=== PATIENT | male | born 1955 | race Caucasian/White ===

== ENCOUNTER 2016-11-10 10:04 | Emergency (ER) | payer OTHER ==
[2016-11-10] MEDS ORDERED: Zyprexa Zydis 5 MG PO ONE ×3 (10:06→10:10)
--- NOTE | 2016-11-10 10:11 | ERPHSYRPT ---
- History of Present Illness Time Seen by Provider: 11/10/16 10:05 Source: patient, family, EMS, old records Exam Limitations: no limitations Physician History: patient has a history of anxiety disorder; his medications were changed about a week ago; he has had increased anxiety since then; he has been taking his medication; he is sleeping okay; no suicidal or homicidal thoughts; occasionally hearing voices indeterminate in nature; he is eating okay; he denies any alcohol or drugs; except for the anxiety he has no complaints Timing/Duration: today (worse anxiety), week(s) (onset with medication change) Severity of Symptoms-Max: severe Severity of Symptoms-Current: moderate Context related to: living circumstances Suicidal thoughts: other (no thoughts or plans) Associated Symptoms: agitated, anxiety, confused Previous symptoms: same symptoms as today Allergies/Adverse Reactions: No Known Drug Allergies Allergy (Verified 11/10/16 10:14) Home Medications: Clonazepam [Klonopin] 1 mg PO TID 11/10/16 [History] Metoprolol Succinate 50 mg [Toprol Xl 50 MG] 100 mg PO DAILY 11/10/16 [ History] Quetiapine Fumarate 100 mg [Seroquel 100 MG] 100 mg PO HS 11/10/16 [ History] Risperidone 1 mg [Risperdal 1 MG] 2 mg PO BID 11/10/16 [History] Hx Tetanus, Diphtheria Vaccination/Date Given: Yes Hx Influenza Vaccination/Date Given: No Hx Pneumococcal Vaccination/Date Given: No - Past Medical History Pertinent Past Medical History: Yes Neurological History: Other ENT History: No Pertinent History Cardiac History: Hypertension Respiratory History: No Pertinent History Endocrine Medical History: No Pertinent History Musculoskeletal History: No Pertinent History GI Medical History: No Pertinent History, GERD History: No Pertinent History Psycho-Social History: Anxiety Male Reproductive Disorders: No Pertinent History Other Medical History: CP, BLIND IN RIGHT EYE - Past Surgical History Past Surgical History: Yes Other Surgical History: SKIN CA REMOVED - Social History Smoking Status: Never smoker Exposure to second hand smoke: No Alcohol Use: None Drug Use: none Patient Lives Alone: No Significant Family History: no pertinent family hx - Review of Systems Constitutional: Other (agitation and anxiety increased) Eyes: No Symptoms Ears, Nose, & Throat: No Symptoms Respiratory: No Cough, No Dyspnea, No Wheezing Cardiac: No Chest Pain, No Palpitations, No Syncope Abdominal/Gastrointestinal: No Abdominal Pain, No Nausea, No Vomiting, No Diarrhea Genitourinary Symptoms: No Symptoms Musculoskeletal: No Symptoms Skin: Other (frequent skin cancers), No Cellulitis, No Rash Neurological: No Dizziness, No Headache, No Seizure, No Vertigo Psychological: Anxiety, No Alcohol Abuse, No Drug Abuse, No Suicidal Ideations, No Homicidal Ideations Endocrine: No Symptoms Hematologic/Lymphatic: No Symptoms Immunological/Allergic: No Symptoms - Nursing Vital Signs Nursing Vital Signs: Initial Vital Signs Temperature 97.6 F Temperature Source Oral Pulse Rate 95 Respiratory Rate 20 Blood Pressure [Right Arm] 139/82 Pain Intensity 0 - Physical Exam General Appearance: mild distress (very anxious with mild hyperventilat), alert , anxiety Eyes, Ears, Nose, Throat Exam: normal ENT inspection, TMs normal, pharynx normal , moist mucous membranes Neck Exam: normal inspection, non-tender, supple, full range of motion, No meningismus, No JVD Respiratory Exam: normal breath sounds, lungs clear, airway intact, No chest tenderness, No respiratory distress Cardiovascular Exam: regular rate/rhythm, normal heart sounds, normal peripheral pulses, capillary refill <2 sec, No murmur Gastrointestinal/Abdominal Exam: soft, normal bowel sounds, No tenderness, No guarding, No rebound, No organomegaly Extremities Exam: normal inspection, normal range of motion, No edema Peripheral Pulses: carotid (R): 4+, carotid (L): 4+, femoral (R): 4+, femoral (L ): 4+, dorsalis-pedis (R): 3+, dorsalis-pedis (L): 3+ Current Suicidality: denies suicide plan Neurological Exam: alert, winder hand II-XII nml as tested, oriented x 3, anxious Appearance: appropriate appearance, denies illness, disheveled (mild) Behavior/Eye Contact/Speech: alert & cooperative, good eye contact, normal speech, increased rate of speech, agitated Thoughts/Hallucinations: no apparent hallucination, No incoherent, No obsessive , No paranoid, No persecution, No phobic, No congregation, No tactile hallucinations, No visual hallucinations Skin Exam: normal color, warm, dry, No rash SpO2 Interpretation: normal SpO2: 100 Oxygen Delivery: Room Air - Course Nursing assessment & vital signs reviewed: Yes Ordered Tests: Active Orders 24 hr Category Date Time Status Re-Check Vital Signs STAT Care 11/10/16 10:05 Active Medication Summary Discontinued Medications Generic Name Dose Route Start Last Admin Trade Name Marco A PRN Reason Stop Dose Admin Hydroxyzine HCl 50 mg 11/10/16 10:30 11/10/16 10:33 Vistaril 50 Mg/Ml IM 11/10/16 10:31 50 mg STAT ONE Administration Hydroxyzine HCl Confirm 11/10/16 10:32 Vistaril 50 Mg/Ml Administered 11/10/16 10:33 Dose 50 mg IM .STK-MED ONE Olanzapine 10 mg 11/10/16 10:06 11/10/16 10:12 Zyprexa Zydis 5 Mg PO 11/10/16 10:07 10 mg STAT ONE Administration Olanzapine Confirm 11/10/16 10:10 Zyprexa Zydis 5 Mg Administered 11/10/16 10:11 Dose 5 mg PO .STK-MED ONE Olanzapine Confirm 11/10/16 10:10 Zyprexa Zydis 5 Mg Administered 11/10/16 10:11 Dose 5 mg PO .STK-MED ONE - Progress Progress: improved (after meds), re-examined (after meds) Progress Note: 11/10/16 10:15 will get old meds list and comapre to new; will medicate and recheck 11/10/16 10:29 rechecked; VS ok; Anxiety improved but stil anxious; no hyperventilation 11/10/16 11:04 recheck and patient continues to improve; up to bathroom; states he has a follow up appointment; 11/10/16 11:29 patient continues to improve; treatment plan discussed and d/c instructions given Counseled pt/family regarding: diagnosis, need for follow-up, smoking cessation - Departure Time of Disposition: 11:30 Departure Disposition: Home Clinical Impression: Anxiety Condition: Stable Critical Care Time: No Referrals: FIONA GARBER [Primary Care Provider] - Instructions: Anxiety -- Adult Additional Instructions: call LMD for recheck and follow up appt continue home medications Follow-up with family doctor as directed. Call for appointment. Return if any problems. If you smoke please stop. Call or follow up with your family doctor for assistance if you need it to stop. Please wear your seatbelt when driving. Have a nice day. Thank you for allowing us to participate in your care today. :o) Dr Andre Swenson
[2016-11-10 10:16] VITALS: O2SAT 100
[2016-11-10] MEDS ORDERED: Vistaril 50 MG/ML IM ONE ×2 (10:30→10:32)
[2016-11-10 11:32] VITALS: BP 140/77; PULSE 86
== END 2016-11-10 12:19 | disposition home or self-care (01) ==
LOC: ED 10:04
DX: F41.9 Anxiety disorder, unspecified (principal); I10 Essential (primary) hypertension
CPT/HCPCS: 96372; 99284; J3410

== ENCOUNTER 2017-11-29 16:06 | Emergency (ER) | payer OTHER ==
[2017-11-29] MEDS ORDERED: Sodium Chloride 0.9% 1000 ML 1,000 ML IV STA (16:07)
--- NOTE | 2017-11-29 16:15 | ERPHSYRPT ---
- History of Present Illness Time Seen by Provider: 11/29/17 16:07 Source: patient Exam Limitations: no limitations Physician History: 62 y/o male with history of anxiety and HTN brought in by ambulance for weakness. EMS brings the patient in covered with bed bugs. The patient mentions that he has been in bed since yesterday and has not been able to ambulate. Pt has not taken his klonopin for 4 days. Pt denies any fever, chills, chest pain, shortness of breath, dizziness, palpitations, abdominal pain, nausea, vomiting, diarrhea or urinary symptoms. When EMS arrived, the house smelled of urine. Timing/Duration: yesterday Severity: mild Character of Deficits: new weakness, general (difuse) Deficits: cannot walk Baseline/Normal Cognition: alert oriented x 3 Current Cognition: alert oriented x 3 Baseline Gait: walks w/o assistance Associated Symptoms: fatigue, No loss of consciousness, No slurred speech Allergies/Adverse Reactions: No Known Drug Allergies Allergy (Verified 11/29/17 16:08) Home Medications: Clonazepam [Klonopin] 1 mg PO TID 11/10/16 [History] Metoprolol Succinate 50 mg [Toprol Xl 50 MG] 100 mg PO DAILY 11/10/16 [ History] Quetiapine Fumarate 100 mg [Seroquel 100 MG] 100 mg PO HS 11/10/16 [ History] Risperidone 1 mg [Risperdal 1 MG] 2 mg PO BID 11/10/16 [History] Hx Tetanus, Diphtheria Vaccination/Date Given: Yes Hx Influenza Vaccination/Date Given: No Hx Pneumococcal Vaccination/Date Given: No - Review of Systems Constitutional: Weakness, No Fever, No Chills Eyes: No Symptoms Ears, Nose, & Throat: No Symptoms Respiratory: No Cough, No Dyspnea Cardiac: No Chest Pain, No Edema, No Syncope Abdominal/Gastrointestinal: No Abdominal Pain, No Nausea, No Vomiting, No Diarrhea Genitourinary Symptoms: Incontinence, No Dysuria, No Frequency, No Hematuria Musculoskeletal: No Back Pain, No Neck Pain Skin: No Rash Neurological: No Dizziness, No Focal Weakness, No Sensory Changes Psychological: No Symptoms Endocrine: No Symptoms All Other Systems: Reviewed and Negative - Past Medical History Pertinent Past Medical History: Yes Neurological History: Other ENT History: No Pertinent History Cardiac History: Hypertension Respiratory History: No Pertinent History Endocrine Medical History: No Pertinent History Musculoskeletal History: No Pertinent History GI Medical History: No Pertinent History, GERD History: No Pertinent History Psycho-Social History: Anxiety Male Reproductive Disorders: No Pertinent History Other Medical History: CP, BLIND IN RIGHT EYE - Past Surgical History Past Surgical History: Yes Other Surgical History: SKIN CA REMOVED - Social History Smoking Status: Never smoker How long have you smoked: 35 Exposure to second hand smoke: No Alcohol Use: None Drug Use: none Patient Lives Alone: No Significant Family History: no pertinent family hx - Nursing Vital Signs Nursing Vital Signs: Initial Vital Signs Temperature 98.4 F 11/29/17 16:07 Pulse Rate 83 11/29/17 16:07 Respiratory Rate 16 11/29/17 16:07 Blood Pressure 142/83 11/29/17 16:07 O2 Sat by Pulse Oximetry 98 11/29/17 16:07 Pain Scale Pain Intensity 0 - [place] Coma Scale Best Eye Response ([place]): (4) open spontaneously Best Verbal Response ([place]): (5) oriented Best Motor Response ([place]): (6) obeys commands [place] Total: 15 - Physical Exam General Appearance: alert Eye Exam: bilateral eye: PERRL, EOMI Ears, Nose, Throat Exam: normal ENT inspection, moist mucous membranes Neck Exam: normal inspection, non-tender, supple Respiratory: normal breath sounds, lungs clear, airway intact, No respiratory distress Cardiovascular: regular rate/rhythm, normal heart sounds, No edema Gastrointestinal: soft, normal bowel sounds, No tenderness, No distention Back Exam: normal inspection Extremity Exam: normal inspection, normal range of motion, No pedal edema 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, 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: normal hearing, normal speech, PERRL, tongue midline Coordination/Gait: normal finger to nose, normal gait Motor/Sensory: no motor deficit, no sensory deficit, no pronator drift Skin Exam: normal color, warm, dry, No rash - Course Nursing assessment & vital signs reviewed: Yes Ordered Tests: Active Orders 24 hr Category Date Time Status Cath for Specimen-Straight STAT Care 11/29/17 16:09 Inactive Clean Catch Urine Specimen STAT Care 11/29/17 17:20 Active EKG-ER Only STAT Care 11/29/17 16:07 Active IV Insertion STAT Care 11/29/17 16:07 Active CHEST 1 VIEW (PORTABLE) Stat Exams 11/29/17 16:08 Ordered HEAD WITHOUT CONTRAST [CT] Stat Exams 11/29/17 16:08 Ordered CBC W DIFF Stat Lab 11/29/17 16:55 Completed CMP Stat Lab 11/29/17 16:55 Completed ETHYL ALCOHOL Stat Lab 11/29/17 16:55 Completed Lactic Acid Stat Lab 11/29/17 16:07 Completed MAGNESIUM Stat Lab 11/29/17 16:55 Completed TROPONIN Q3H Lab 11/29/17 16:55 Completed TROPONIN Q3H Lab 11/29/17 19:15 Ordered TROPONIN Q3H Lab 11/29/17 22:15 Ordered TROPONIN Q3H Lab 11/30/17 01:15 Ordered TROPONIN Q3H Lab 11/30/17 04:15 Ordered UA W/RFX UR CULTURE Stat Lab 11/29/17 18:00 Completed Urine Triage Profile Stat Lab 11/29/17 18:00 Completed Medication Summary Discontinued Medications Generic Name Dose Route Start Last Admin Trade Name Freq PRN Reason Stop Dose Admin Clonazepam 1 mg 11/29/17 18:51 Klonopin 0.5 Mg PO 11/29/17 18:52 ONCE ONE Sodium Chloride 1,000 mls @ 999 mls/hr 11/29/17 16:07 11/29/17 17:04 Sodium Chloride 0.9% 1000 Ml IV 11/29/17 17:07 999 mls/hr .Q1H1M STA Administration Sodium Chloride Confirm 11/29/17 16:31 Sodium Chloride 0.9% 1000 Ml Administered 11/29/17 16:32 Dose 1,000 mls @ ud .ROUTE .STK-MED ONE Lab/Rad Data: Laboratory Result Diagrams 11/29/17 16:55 11/29/17 16:55 Laboratory Results 11/29/17 11/29/17 11/29/17 Range/Units 18:00 18:00 16:55 WBC (4.0-10.5) K/mm3 RBC (4.1-5.6) M/mm3 Hgb (12.5-18.0) gm/dl Hct (42-50) % MCV (78-100) fl MCH (26-32) pg MCHC (32-36) g/dl RDW (11.5-14.0) % Plt Count (150-450) K/mm3 MPV (6-9.5) fl Gran % (36.0-66.0) % Eos # (Auto) (0-0.5) Absolute Lymphs (auto) (1.0-4.6) Absolute Monos (auto) (0.0-1.3) Lymphocytes % (24.0-44.0) % Monocytes % (0.0-12.0) % Eosinophils % (0.00-5.0) % Basophils % (0.0-0.4) % Absolute Granulocytes (1.4-6.9) Basophils # (0-0.4) Sodium (137-145) mmol/L Potassium (3.5-5.1) mmol/L Chloride (98-107) mmol/L Carbon Dioxide (22-30) mmol/L Anion Gap (5-15) MEQ/L BUN (9-20) mg/dL Creatinine (0.66-1.25) mg/dL Estimated GFR ML/MIN Glucose (74-106) mg/dL Lactic Acid (0.4-2.0) Calcium (8.4-10.2) mg/dL Magnesium (1.6-2.3) mg/dL Total Bilirubin (0.2-1.3) mg/dL AST (17-59) U/L ALT (0-50) U/L Alkaline Phosphatase (38-126) U/L Troponin I < 0.012 (0.000-0.034) ng/mL Serum Total Protein (6.3-8.2) g/dL Albumin (3.5-5.0) g/dL Ur Collection Type CCMS Urine Color YELLOW (YELLOW) Urine Appearance CLEAR (CLEAR) Urine pH 7.0 (5-6) Ur Specific [place]ke[place] 1.010 (1.005-1.025) Urine Protein NEGATIVE (Negative) Urine Ketones NEGATIVE (NEGATIVE) Urine Blood NEGATIVE (0-5) Pravin/ul Urine Nitrite NEGATIVE (NEGATIVE) Urine Bilirubin NEGATIVE (NEGATIVE) Urine Urobilinogen NORMAL (0-1) mg/dL Ur Leukocyte Esterase NEGATIVE (NEGATIVE) Urine Culture Reflexed NO (NO) Urine Glucose 50 (NEGATIVE) mg/dL Urine Opiates Level NEGATIVE (NEGATIVE) Ur Methadone NEGATIVE (NEGATIVE) Urine Barbiturates NEGATIVE (NEGATIVE) Ur Phencyclidine (PCP) NEGATIVE (NEGATIVE) Urine Amphetamine NEGATIVE (NEGATIVE) U Benzodiazepine Level NEGATIVE (NEGATIVE) Urine Cocaine NEGATIVE (NEGATIVE) Urine Marijuana (THC) NEGATIVE (NEGATIVE) Ethyl Alcohol (0-9) mg/dL Specimen Received 11-29-17 1830 11/29/17 11/29/17 11/29/17 Range/Units 16:55 16:55 16:07 WBC 11.9 H (4.0-10.5) K/mm3 RBC 4.24 (4.1-5.6) M/mm3 Hgb 13.5 (12.5-18.0) gm/dl Hct 39.6 L (42-50) % MCV 93.4 (78-100) fl MCH 31.8 (26-32) pg MCHC 34.1 (32-36) g/dl RDW 12.0 (11.5-14.0) % Plt Count 226 (150-450) K/mm3 MPV 9.2 (6-9.5) fl Gran % 80.8 H (36.0-66.0) % Eos # (Auto) 0.31 (0-0.5) Absolute Lymphs (auto) 1.11 (1.0-4.6) Absolute Monos (auto) 0.85 (0.0-1.3) Lymphocytes % 9.3 L (24.0-44.0) % Monocytes % 7.1 (0.0-12.0) % Eosinophils % 2.6 (0.00-5.0) % Basophils % 0.2 (0.0-0.4) % Absolute Granulocytes 9.60 H (1.4-6.9) Basophils # 0.02 (0-0.4) Sodium 134 L (137-145) mmol/L Potassium 4.6 (3.5-5.1) mmol/L Chloride 101 (98-107) mmol/L Carbon Dioxide 21 L (22-30) mmol/L Anion Gap 16.0 H (5-15) MEQ/L BUN 16 (9-20) mg/dL Creatinine 0.99 (0.66-1.25) mg/dL Estimated GFR > 60 ML/MIN Glucose 126 H (74-106) mg/dL Lactic Acid 1.1 (0.4-2.0) Calcium 8.8 (8.4-10.2) mg/dL Magnesium 1.9 (1.6-2.3) mg/dL Total Bilirubin 0.30 (0.2-1.3) mg/dL AST 13 L (17-59) U/L ALT 13 (0-50) U/L Alkaline Phosphatase 61 (38-126) U/L Troponin I (0.000-0.034) ng/mL Serum Total Protein 6.9 (6.3-8.2) g/dL Albumin 4.2 (3.5-5.0) g/dL Ur Collection Type Urine Color (YELLOW) Urine Appearance (CLEAR) Urine pH (5-6) Ur Specific [place]ke[place] (1.005-1.025) Urine Protein (Negative) Urine Ketones (NEGATIVE) Urine Blood (0-5) Pravin/ul Urine Nitrite (NEGATIVE) Urine Bilirubin (NEGATIVE) Urine Urobilinogen (0-1) mg/dL Ur Leukocyte Esterase (NEGATIVE) Urine Culture Reflexed (NO) Urine Glucose (NEGATIVE) mg/dL Urine Opiates Level (NEGATIVE) Ur Methadone (NEGATIVE) Urine Barbiturates (NEGATIVE) Ur Phencyclidine (PCP) (NEGATIVE) Urine Amphetamine (NEGATIVE) U Benzodiazepine Level (NEGATIVE) Urine Cocaine (NEGATIVE) Urine Marijuana (THC) (NEGATIVE) Ethyl Alcohol < 10 H (0-9) mg/dL Specimen Received - Progress Progress: improved Progress Note: 11/29/17 18:52 Pt feels better after receiving NS fluids. The labs, CT scan head and CXR are all unremarkable. The patient is able to ambulate with no difficulty. Pt admits to having increase anxiety and will be giving a short course of klonopin. Pt will F/U with his PCP. - Departure Time of Disposition: 18:53 Departure Disposition: Home Clinical Impression: Anxiety Condition: Stable Critical Care Time: No Referrals: FIONA GARBER [Primary Care Provider] - Instructions: Anxiety, Adult (DC) Additional Instructions: Follow up with your primary care doctor for any additional klonopin. Return to the ER if you should have worsening weakness, chest pain, shortness of breath, dizziness, palpitations, fever or chills. Prescriptions: Clonazepam 0.5 mg [Klonopin 0.5 MG] 1 mg PO TID PRN #10 tab PRN Reason: Anxiety
[2017-11-29] MEDS ORDERED: Sodium Chloride 0.9% 1000 ML 1,000 ML ONE (16:31)
[2017-11-29 18:06] LABS: BASOPHIL % 0.2 % (0.0-0.4); Basophil (Absolute #) 0.02 (0-0.4); Eosinophil % 2.6 % (0.00-5.0); Eosinophil (Absolute #) 0.31 (0-0.5); Granulocytes % 80.8 % (36.0-66.0); Hematocrit 39.6 % (42-50); Hemoglobin 13.5 gm/dl (12.5-18.0); Lymphocyte (Absolute #) 1.11 (1.0-4.6); Lymphocytes % 9.3 % (24.0-44.0); Mean Cell Volume 93.4 fl (78-100); Mean Corpuscular Hemoglobin 31.8 pg (26-32); Mean Corpuscular Hgb Concent. 34.1 g/dl (32-36); Mean Platelet Volume 9.2 fl (6-9.5); Monocyte (Absolute #) 0.85 (0.0-1.3); Monocytes % 7.1 % (0.0-12.0); Platelet Count 226 K/mm3 (150-450); Red Blood Count 4.24 M/mm3 (4.1-5.6); White Blood Count 11.9 K/mm3 (4.0-10.5)
[2017-11-29 18:26] LABS: ALBUMIN 4.2 g/dL (3.5-5.0); ALKALINE PHOSPHATASE 61 U/L (38-126); BLOOD UREA NITROGEN 16 mg/dL (9-20); CHLORIDE 101 mmol/L (98-107); Calcium 8.8 mg/dL (8.4-10.2); Carbon Dioxide 21 mmol/L (22-30); Creatinine 1 0.99 mg/dL (0.66-1.25); Glucose 126 mg/dL (74-106); Potassium 4.6 mmol/L (3.5-5.1); SGOT/AST 13 U/L (17-59); SGPT/ALT 13 U/L (0-50); SODIUM 134 mmol/L (137-145); Total Protein 6.9 g/dL (6.3-8.2)
[2017-11-29 18:35] LABS: ETHYL ALCOHOL < 10 mg/dL (0-9)
[2017-11-29 18:47] LABS: Appearance CLEAR (CLEAR); Bilirubin NEGATIVE (NEGATIVE); Blood NEGATIVE Ery/ul (0-5); Glucose 50 mg/dL (NEGATIVE); Ketones NEGATIVE (NEGATIVE); Leukocyte Esterase NEGATIVE (NEGATIVE); Nitrite NEGATIVE (NEGATIVE); Protein,Urine Dip NEGATIVE (Negative); Urobilinogen NORMAL mg/dL (0-1)
[2017-11-29] MEDS ORDERED: Klonopin 0.5 MG PO ONE (18:51)
[2017-11-29 19:03] LABS: Amphetamine,Urine NEGATIVE (NEGATIVE); Barbiturate,Urine NEGATIVE (NEGATIVE); Benzodiazepine,Urine NEGATIVE (NEGATIVE); Cocaine,Urine NEGATIVE (NEGATIVE); Methadone,Urine NEGATIVE (NEGATIVE); Opiate,Urine NEGATIVE (NEGATIVE); PCP,Urine NEGATIVE (NEGATIVE); THC,Urine NEGATIVE (NEGATIVE)
[2017-11-29 19:20] VITALS: BP 164/99; PULSE 80; O2SAT 99
--- NOTE | 2017-11-30 09:07 | XRAY ---
Indication: Weakness. Comparison: October 24, 2008. Portable chest again hyperinflated and clear with incidental calcified granulomas. Heart is not enlarged. Bony thorax intact. Impression: Stable nonacute hyperinflated chest.
--- NOTE | 2017-12-01 08:26 | XRAY ---
Indication: Weakness. Multiple contiguous axial images obtained through the head without contrast. Comparison: October 24, 2008. Images through the base of the brain slightly degraded by motion artifact even with repeat CT. Stable large left cerebral porencephalic cyst. No acute intracranial hemorrhage, hydrocephalus, or mass effect. Bony calvarium intact. Visualized paranasal sinuses and mastoid air cells are clear. Impression: Motion artifact. Stable left cerebral porencephalic cyst. No new or acute intracranial abnormalities. CT DI 64.68
== END 2017-11-29 19:43 | disposition home or self-care (01) ==
LOC: ED 16:06
DX: F41.9 Anxiety disorder, unspecified (principal); R53.1 Weakness; Z79.899 Other long term (current) drug therapy; I10 Essential (primary) hypertension
CPT/HCPCS: 36415; 70450; 71045; 80053; 80307; 81002; 83605; 83735; 84484; 85025; 93005; 99283; G0480; A9270-GY

== ENCOUNTER → 2017-12-04 | Emergency (ER) | payer OTHER ==
[~2017-12-04] MED LIST: Sodium Chloride 0.9% 1000 ML 1,000 ML IV STA; Sodium Chloride 0.9% 1000 ML 1,000 ML ONE
[2017-12-04 21:38] VITALS: PULSE 96; O2SAT 96
[2017-12-04 21:39] LABS: BASOPHIL % 0.2 % (0.0-0.4); Basophil (Absolute #) 0.03 (0-0.4); Eosinophil % 5.2 % (0.00-5.0); Eosinophil (Absolute #) 0.67 (0-0.5); Granulocyte Absolute (ANC) 8.65 (1.4-6.9); Granulocytes % 67.3 % (36.0-66.0); Hematocrit 40.2 % (42-50); Lymphocyte (Absolute #) 1.98 (1.0-4.6); Lymphocytes % 15.4 % (24.0-44.0); Mean Cell Volume 93.1 fl (78-100); Mean Corpuscular Hemoglobin 32.4 pg (26-32); Mean Corpuscular Hgb Concent. 34.8 g/dl (32-36); Mean Platelet Volume 9.7 fl (6-9.5); Monocyte (Absolute #) 1.53 (0.0-1.3); Monocytes % 11.9 % (0.0-12.0); Platelet Count 318 K/mm3 (150-450); Red Blood Count 4.32 M/mm3 (4.1-5.6); Red Cell Distribution Width 12.2 % (11.5-14.0); White Blood Count 12.9 K/mm3 (4.0-10.5)
[2017-12-04 21:44] LABS: Lactic Acid 5.3 (0.4-2.0)
--- NOTE | 2017-12-04 21:59 | ERPHSYRPT ---
- History of Present Illness Time Seen by Provider: 12/04/17 21:54 Patient Subjective Stated Complaint: Out of Klonopin for 2-3 days and causing him to think wrong--homicidal Triage Nursing Assessment: Pt A&O x3, states that he has been out of his Klonopin for 2-3 days and he has thoughts of killing someone, no one in particular, came in with bed bugs and was given a shower in the decontamination room, upon arrival he was shaking and that has now stopped, lung sounds clear, bowel sounds present in all 4 quadrants, hx of stroke on the right side with weakness, doesn't appear to be in any distress Physician History: 62-year-old male with significant past medical history of anxiety and depression then out of his clonazepam and since then he started having homicidal thoughts. Patient was wondering outside so there family member calls 911 and patient was brought into the emergency room. Patient was heavily bedbug infested and he states that he then out of Klonopin for last 2 days and now he has some homicidal thoughts. Patient denies any hallucination or delusions and patient behavior is calm in the emergency room. Timing/Duration: today Severity: moderate Associated Symptoms: denies symptoms Allergies/Adverse Reactions: No Known Drug Allergies Allergy (Verified 12/04/17 21:45) Home Medications: Clonazepam [Klonopin] 1 mg PO TID 11/10/16 [History] Metoprolol Succinate 50 mg [Toprol Xl 50 MG] 100 mg PO DAILY 11/10/16 [ History] Quetiapine Fumarate 100 mg [Seroquel 100 MG] 100 mg PO HS 11/10/16 [ History] Risperidone 1 mg [Risperdal 1 MG] 2 mg PO BID 11/10/16 [History] Hx Tetanus, Diphtheria Vaccination/Date Given: Yes Hx Influenza Vaccination/Date Given: No Hx Pneumococcal Vaccination/Date Given: No - Review of Systems Constitutional: No Fever, No Chills Eyes: No Symptoms Ears, Nose, & Throat: No Symptoms Respiratory: No Cough, No Dyspnea Cardiac: No Chest Pain, No Edema, No Syncope Abdominal/Gastrointestinal: No Abdominal Pain, No Nausea, No Vomiting, No Diarrhea Genitourinary Symptoms: No Dysuria Musculoskeletal: No Back Pain, No Neck Pain Skin: No Rash Neurological: No Dizziness, No Focal Weakness, No Sensory Changes Psychological: Anxiety, Depression, Homicidal Ideations Endocrine: No Symptoms All Other Systems: Reviewed and Negative - Past Medical History Pertinent Past Medical History: Yes Neurological History: Other ENT History: No Pertinent History Cardiac History: Hypertension Respiratory History: No Pertinent History Endocrine Medical History: No Pertinent History Musculoskeletal History: No Pertinent History GI Medical History: No Pertinent History, GERD History: No Pertinent History Psycho-Social History: Anxiety Male Reproductive Disorders: No Pertinent History Other Medical History: CP, 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 - Past Surgical History Past Surgical History: Yes Other Surgical History: SKIN CA REMOVED - Social History Smoking Status: Former smoker How long have you smoked: 35 Exposure to second hand smoke: No Alcohol Use: None Drug Use: none Patient Lives Alone: No Significant Family History: no pertinent family hx - Nursing Vital Signs Nursing Vital Signs: Initial Vital Signs Temperature 98.3 F 12/04/17 21:26 Pulse Rate 96 H 12/04/17 21:26 Blood Pressure 125/83 12/04/17 21:26 O2 Sat by Pulse Oximetry 96 12/04/17 21:26 Pain Scale Pain Intensity 0 - Physical Exam General Appearance: no apparent distress, alert Eye Exam: PERRL/EOMI, eyes nml inspection Ears, Nose, Throat Exam: normal ENT inspection, TMs normal, pharynx normal, moist mucous membranes Neck Exam: normal inspection, non-tender, supple, full range of motion Respiratory Exam: normal breath sounds, lungs clear, No respiratory distress Cardiovascular Exam: regular rate/rhythm, normal heart sounds, normal peripheral pulses Gastrointestinal/Abdomen Exam: soft, normal bowel sounds, No tenderness, No mass Back Exam: normal inspection, normal range of motion, No CVA tenderness, No vertebral tenderness Extremity Exam: normal inspection, normal range of motion, pelvis stable 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, oriented x 3, cooperative, disoriented, intoxicated appearance, depressed mood/affect, No motor deficits Skin Exam: normal color, warm, dry, No rash Lymphatic Exam: No adenopathy SpO2 Interpretation: normal SpO2: 96 Oxygen Delivery: Room Air - Course Nursing assessment & vital signs reviewed: Yes Ordered Tests: Active Orders 24 hr Category Date Time Status CBC W DIFF Stat Lab 12/04/17 21:20 Completed CMP Stat Lab 12/04/17 21:20 Completed ETHYL ALCOHOL Stat Lab 12/04/17 21:20 Completed Lactic Acid Stat Lab 12/04/17 21:40 Completed Lactic Acid Stat Lab 12/04/17 23:44 Completed Urine Triage Profile Stat Lab 12/04/17 23:45 Completed Medication Summary Discontinued Medications Generic Name Dose Route Start Last Admin Trade Name Marco A PRN Reason Stop Dose Admin Sodium Chloride 1,000 mls @ 999 mls/hr 12/04/17 21:26 12/04/17 21:41 Sodium Chloride 0.9% 1000 Ml IV 12/04/17 22:26 999 mls/hr .Q1H1M STA Administration Sodium Chloride Confirm 12/04/17 21:40 Sodium Chloride 0.9% 1000 Ml Administered 12/04/17 21:41 Dose 1,000 mls @ ud .ROUTE .STK-MED ONE Sodium Chloride 1,000 mls @ 999 mls/hr 12/04/17 23:34 12/04/17 23:40 Sodium Chloride 0.9% 1000 Ml IV 12/05/17 00:34 999 mls/hr .Q1H1M STA Administration Sodium Chloride Confirm 12/04/17 23:41 Sodium Chloride 0.9% 1000 Ml Administered 12/04/17 23:42 Dose 1,000 mls @ ud .ROUTE .STK-MED ONE Lab/Rad Data: Laboratory Result Diagrams 12/04/17 21:20 12/04/17 21:20 Laboratory Results 12/05/17 12/04/17 12/04/17 Range/Units 00:42 23:45 21:40 WBC (4.0-10.5) K/mm3 RBC (4.1-5.6) M/mm3 Hgb (12.5-18.0) gm/dl Hct (42-50) % MCV (78-100) fl MCH (26-32) pg MCHC (32-36) g/dl RDW (11.5-14.0) % Plt Count (150-450) K/mm3 MPV (6-9.5) fl Gran % (36.0-66.0) % Eos # (Auto) (0-0.5) Absolute Lymphs (auto) (1.0-4.6) Absolute Monos (auto) (0.0-1.3) Lymphocytes % (24.0-44.0) % Monocytes % (0.0-12.0) % Eosinophils % (0.00-5.0) % Basophils % (0.0-0.4) % Absolute Granulocytes (1.4-6.9) Basophils # (0-0.4) Sodium (137-145) mmol/L Potassium (3.5-5.1) mmol/L Chloride (98-107) mmol/L Carbon Dioxide (22-30) mmol/L Anion Gap (5-15) MEQ/L BUN (9-20) mg/dL Creatinine (0.66-1.25) mg/dL Estimated GFR ML/MIN Glucose (74-106) mg/dL Lactic Acid 0.6 5.3 H (0.4-2.0) Calcium (8.4-10.2) mg/dL Total Bilirubin (0.2-1.3) mg/dL AST (17-59) U/L ALT (0-50) U/L Alkaline Phosphatase (38-126) U/L Serum Total Protein (6.3-8.2) g/dL Albumin (3.5-5.0) g/dL Urine Opiates Level NEGATIVE (NEGATIVE) Ur Methadone NEGATIVE (NEGATIVE) Urine Barbiturates NEGATIVE (NEGATIVE) Ur Phencyclidine (PCP) NEGATIVE (NEGATIVE) Urine Amphetamine NEGATIVE (NEGATIVE) U Benzodiazepine Level NEGATIVE (NEGATIVE) Urine Cocaine NEGATIVE (NEGATIVE) Urine Marijuana (THC) NEGATIVE (NEGATIVE) Ethyl Alcohol (0-9) mg/dL Slides for Path Review 12/04/17 12/04/17 Range/Units 21:20 21:20 WBC 12.9 H (4.0-10.5) K/mm3 RBC 4.32 (4.1-5.6) M/mm3 Hgb 14.0 (12.5-18.0) gm/dl Hct 40.2 L (42-50) % MCV 93.1 (78-100) fl MCH 32.4 H (26-32) pg MCHC 34.8 (32-36) g/dl RDW 12.2 (11.5-14.0) % Plt Count 318 (150-450) K/mm3 MPV 9.7 H (6-9.5) fl Gran % 67.3 H (36.0-66.0) % Eos # (Auto) 0.67 H (0-0.5) Absolute Lymphs (auto) 1.98 (1.0-4.6) Absolute Monos (auto) 1.53 H (0.0-1.3) Lymphocytes % 15.4 L (24.0-44.0) % Monocytes % 11.9 (0.0-12.0) % Eosinophils % 5.2 H (0.00-5.0) % Basophils % 0.2 (0.0-0.4) % Absolute Granulocytes 8.65 H (1.4-6.9) Basophils # 0.03 (0-0.4) Sodium 131 L (137-145) mmol/L Potassium 4.5 (3.5-5.1) mmol/L Chloride 94 L (98-107) mmol/L Carbon Dioxide 19 L (22-30) mmol/L Anion Gap 22.9 H (5-15) MEQ/L BUN 18 (9-20) mg/dL Creatinine 1.25 (0.66-1.25) mg/dL Estimated GFR > 60 ML/MIN Glucose 121 H (74-106) mg/dL Lactic Acid (0.4-2.0) Calcium 9.5 (8.4-10.2) mg/dL Total Bilirubin 0.50 (0.2-1.3) mg/dL AST 25 (17-59) U/L ALT 19 (0-50) U/L Alkaline Phosphatase 60 (38-126) U/L Serum Total Protein 7.4 (6.3-8.2) g/dL Albumin 4.7 (3.5-5.0) g/dL Urine Opiates Level (NEGATIVE) Ur Methadone (NEGATIVE) Urine Barbiturates (NEGATIVE) Ur Phencyclidine (PCP) (NEGATIVE) Urine Amphetamine (NEGATIVE) U Benzodiazepine Level (NEGATIVE) Urine Cocaine (NEGATIVE) Urine Marijuana (THC) (NEGATIVE) Ethyl Alcohol < 10 H (0-9) mg/dL Slides for Path Review YES - Progress Progress: unchanged Discussed with : Other Counseled pt/family regarding: lab results, diagnosis, need for follow-up - Departure Time of Disposition: 05:12 Departure Disposition: Transfer Clinical Impression: Homicidal behavior Condition: Stable Critical Care Time: Yes Critical Care Time(excluding separately billable procedures): 30-74 minutes Referrals: FIONA GARBER [Primary Care Provider] -
[2017-12-04 22:04] LABS: ALBUMIN 4.7 g/dL (3.5-5.0); ALKALINE PHOSPHATASE 60 U/L (38-126); ANION GAP 22.9 MEQ/L (5-15); BLOOD UREA NITROGEN 18 mg/dL (9-20); CHLORIDE 94 mmol/L (98-107); Calcium 9.5 mg/dL (8.4-10.2); Carbon Dioxide 19 mmol/L (22-30); Creatinine 1 1.25 mg/dL (0.66-1.25); Glucose 121 mg/dL (74-106); Potassium 4.5 mmol/L (3.5-5.1); SGOT/AST 25 U/L (17-59); SODIUM 131 mmol/L (137-145); Total Protein 7.4 g/dL (6.3-8.2)
[2017-12-04 22:10] LABS: SGPT/ALT 19 U/L (0-50)
[2017-12-04 22:16] LABS: ETHYL ALCOHOL < 10 mg/dL (0-9)
[2017-12-05 00:10] LABS: Amphetamine,Urine NEGATIVE (NEGATIVE); Barbiturate,Urine NEGATIVE (NEGATIVE); Benzodiazepine,Urine NEGATIVE (NEGATIVE); Cocaine,Urine NEGATIVE (NEGATIVE); Methadone,Urine NEGATIVE (NEGATIVE); Opiate,Urine NEGATIVE (NEGATIVE); PCP,Urine NEGATIVE (NEGATIVE); THC,Urine NEGATIVE (NEGATIVE)
[2017-12-05 00:33] LABS: Slide Review 1 YES
[2017-12-05 02:27] VITALS: BP 127/96
== END ==
LOC: ED 21:06
DX: R45.850 Homicidal ideations (principal); T14.8XXA Other injury of unspecified body region, initial encounter; W57.XXXA Bitten or stung by nonvenomous insect and other nonvenomous arthropods, initial encounter
CPT/HCPCS: 36415; 80053; 80302; 80307; 83605; 85025; 96360; 96361; 99285; G0480

== ENCOUNTER 2018-04-17 11:25 | Emergency (ER) | payer OTHER ==
[2018-04-17 12:04] LABS: BASOPHIL % 0.2 % (0.0-0.4); Basophil (Absolute #) 0.02 (0-0.4); Eosinophil % 10.2 % (0.00-5.0); Eosinophil (Absolute #) 0.93 (0-0.5); Granulocyte Absolute (ANC) 5.91 (1.4-6.9); Granulocytes % 64.9 % (36.0-66.0); Hematocrit 37.6 % (42-50); Hemoglobin 13.6 gm/dl (12.5-18.0); Lymphocyte (Absolute #) 1.33 (1.0-4.6); Lymphocytes % 14.6 % (24.0-44.0); Mean Cell Volume 91.7 fl (78-100); Mean Corpuscular Hemoglobin 33.2 pg (26-32); Mean Corpuscular Hgb Concent. 36.2 g/dl (32-36); Mean Platelet Volume 9.7 fl (6-9.5); Monocyte (Absolute #) 0.92 (0.0-1.3); Monocytes % 10.1 % (0.0-12.0); Platelet Count 192 K/mm3 (150-450); White Blood Count 9.1 K/mm3 (4.0-10.5)
--- NOTE | 2018-04-17 12:05 | ERPHSYRPT ---
- History of Present Illness Time Seen by Provider: 04/17/18 12:02 Source: patient Exam Limitations: no limitations Physician History: This is a 63-year-old white male with complaint of depression he states he has been feeling depressed for 2 days he feels like his medicines are not working. He denies suicidal or homicidal ideation . He denies alcohol tobacco or illicit drug use. 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 Also states he has chronic right-sided weakness. Past surgical history includes skin cancer removed. Patient is a former smoker Timing/Duration: day(s) (2 days) Severity: moderate Modifying Factors: Improves With: nothing Associated Symptoms: denies symptoms Allergies/Adverse Reactions: No Known Drug Allergies Allergy (Verified 04/17/18 11:36) Home Medications: Clonazepam [Klonopin] 1 mg PO TID 11/10/16 [History] Metoprolol Succinate 50 mg [Toprol Xl 50 MG] 100 mg PO DAILY 11/10/16 [ History] Quetiapine Fumarate 100 mg [Seroquel 100 MG] 100 mg PO HS 11/10/16 [ History] Risperidone 1 mg [Risperdal 1 MG] 2 mg PO HS 11/10/16 [History] ARIPiprazole [Aripiprazole] 5 mg PO DAILY 04/17/18 [History] Amlodipine Besylate 10 mg [Norvasc 10 MG] 10 mg PO HS 04/17/18 [History] Buspirone HCl [Buspar] 10 mg PO BID 04/17/18 [History] Lisinopril/Hydrochlorothiazide [Lisinopril-Hctz 20-12.5 mg Tab] 1 each PO DAILY 04/17/18 [History] Hx Tetanus, Diphtheria Vaccination/Date Given: Yes Hx Influenza Vaccination/Date Given: No Hx Pneumococcal Vaccination/Date Given: No - Review of Systems Constitutional: No Fever, No Chills Eyes: No Symptoms Ears, Nose, & Throat: No Symptoms Respiratory: No Cough, No Dyspnea Cardiac: No Chest Pain, No Edema, No Syncope Abdominal/Gastrointestinal: No Abdominal Pain, No Nausea, No Vomiting, No Diarrhea Genitourinary Symptoms: No Dysuria Musculoskeletal: No Back Pain, No Neck Pain Skin: No Rash Neurological: No Dizziness, No Focal Weakness, No Sensory Changes Psychological: Depression, No Suicidal Ideations, No Homicidal Ideations Endocrine: No Symptoms All Other Systems: Reviewed and Negative - Past Medical History Pertinent Past Medical History: Yes Neurological History: Other ENT History: No Pertinent History Cardiac History: Hypertension Respiratory History: No Pertinent History Endocrine Medical History: No Pertinent History Musculoskeletal History: No Pertinent History GI Medical History: No Pertinent History, GERD History: No Pertinent History Psycho-Social History: Anxiety Male Reproductive Disorders: No Pertinent History Other Medical History: CP, 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 - Past Surgical History Past Surgical History: Yes Other Surgical History: SKIN CA REMOVED - Social History Smoking Status: Former smoker How long have you smoked: 35 Exposure to second hand smoke: No Alcohol Use: None Drug Use: none Patient Lives Alone: No Significant Family History: no pertinent family hx - Nursing Vital Signs Nursing Vital Signs: Initial Vital Signs Temperature 98 F 04/17/18 11:26 Pulse Rate 61 04/17/18 11:26 Respiratory Rate 16 04/17/18 11:26 Blood Pressure 132/82 04/17/18 11:26 O2 Sat by Pulse Oximetry 99 04/17/18 11:26 Pain Scale Pain Intensity 0 - Physical Exam General Appearance: no apparent distress, alert Eye Exam: PERRL/EOMI, eyes nml inspection Ears, Nose, Throat Exam: normal ENT inspection, TMs normal, pharynx normal, moist mucous membranes Neck Exam: normal inspection, non-tender, supple, full range of motion Respiratory Exam: normal breath sounds, lungs clear, No respiratory distress Cardiovascular Exam: regular rate/rhythm, normal heart sounds, normal peripheral pulses Gastrointestinal/Abdomen Exam: soft, normal bowel sounds, No tenderness, No mass Back Exam: normal inspection, normal range of motion, No CVA tenderness, No vertebral tenderness Extremity Exam: normal inspection, normal range of motion, pelvis stable 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, oriented x 3, cooperative, elementary education tutor II-XII nml as tested, normal mood/affect, nml cerebellar function, nml station & gait, sensation nml, No motor deficits Skin Exam: normal color, warm, dry, No rash Lymphatic Exam: No adenopathy SpO2 Interpretation: normal (99%) SpO2: 99 Oxygen Delivery: Room Air - Course Nursing assessment & vital signs reviewed: Yes EKG Interpreted by Me: RATE (55 bpm), Sinus Rhythm, NORMAL AXIS, Other (EKG: Sinus bradycardia, 55 bpm, normal axis, no acute ST or T wave changes noted) Ordered Tests: Active Orders 24 hr Category Date Time Status EKG-ER Only STAT Care 04/17/18 11:56 Active IV Insertion STAT Care 04/17/18 11:56 Active Psychiatric Evaluation STAT Care 04/17/18 12:30 Active ACETAMINOPHEN Stat Lab 04/17/18 11:45 Completed CBC W DIFF Stat Lab 04/17/18 11:45 Completed CMP Stat Lab 04/17/18 11:45 Completed ETHYL ALCOHOL Stat Lab 04/17/18 11:45 Completed SALICYLATE Stat Lab 04/17/18 11:45 Completed UA W/RFX UR CULTURE Stat Lab 04/17/18 11:45 Completed Urine Triage Profile Stat Lab 04/17/18 11:45 Completed Lab/Rad Data: Laboratory Result Diagrams 04/17/18 11:45 04/17/18 11:45 Laboratory Results 04/17/18 04/17/18 04/17/18 Range/Units 11:45 11:45 11:45 WBC (4.0-10.5) K/mm3 RBC (4.1-5.6) M/mm3 Hgb (12.5-18.0) gm/dl Hct (42-50) % MCV (78-100) fl MCH (26-32) pg MCHC (32-36) g/dl RDW (11.5-14.0) % Plt Count (150-450) K/mm3 MPV (6-9.5) fl Gran % (36.0-66.0) % Eos # (Auto) (0-0.5) Absolute Lymphs (auto) (1.0-4.6) Absolute Monos (auto) (0.0-1.3) Lymphocytes % (24.0-44.0) % Monocytes % (0.0-12.0) % Eosinophils % (0.00-5.0) % Basophils % (0.0-0.4) % Absolute Granulocytes (1.4-6.9) Basophils # (0-0.4) Sodium 129 L (137-145) mmol/L Potassium 4.0 (3.5-5.1) mmol/L Chloride 98 (98-107) mmol/L Carbon Dioxide 22 (22-30) mmol/L Anion Gap 13.8 (5-15) MEQ/L BUN 15 (9-20) mg/dL Creatinine 1.05 (0.66-1.25) mg/dL Estimated GFR > 60.0 ML/MIN Glucose 110 H (74-106) mg/dL Calcium 9.0 (8.4-10.2) mg/dL Total Bilirubin 0.30 (0.2-1.3) mg/dL AST 21 (17-59) U/L ALT 15 (0-50) U/L Alkaline Phosphatase 56 (38-126) U/L Serum Total Protein 7.0 (6.3-8.2) g/dL Albumin 4.4 (3.5-5.0) g/dL Ur Collection Type VOID Urine Color YELLOW (YELLOW) Urine Appearance CLEAR (CLEAR) Urine pH 7.0 (5-6) Ur Specific Thermal 1.005 (1.005-1.025) Urine Protein NEGATIVE (Negative) Urine Ketones NEGATIVE (NEGATIVE) Urine Blood NEGATIVE (0-5) Pravin/ul Urine Nitrite NEGATIVE (NEGATIVE) Urine Bilirubin NEGATIVE (NEGATIVE) Urine Urobilinogen NORMAL (0-1) mg/dL Ur Leukocyte Esterase NEGATIVE (NEGATIVE) Urine Culture Reflexed NO (NO) Urine Glucose NEGATIVE (NEGATIVE) mg/dL Salicylates < 1.0 L (2-20) mg/dL Urine Opiates Level NEGATIVE (NEGATIVE) Ur Methadone NEGATIVE (NEGATIVE) Acetaminophen < 10 L (10-30) ug/ml Urine Barbiturates NEGATIVE (NEGATIVE) Ur Phencyclidine (PCP) NEGATIVE (NEGATIVE) Urine Amphetamine NEGATIVE (NEGATIVE) U Benzodiazepine Level NEGATIVE (NEGATIVE) Urine Cocaine NEGATIVE (NEGATIVE) Urine Marijuana (THC) NEGATIVE (NEGATIVE) Ethyl Alcohol < 10 (0-10) mg/dL Specimen Received 04/17/18 1145 04/17/18 Range/Units 11:45 WBC 9.1 (4.0-10.5) K/mm3 RBC 4.10 (4.1-5.6) M/mm3 Hgb 13.6 (12.5-18.0) gm/dl Hct 37.6 L (42-50) % MCV 91.7 (78-100) fl MCH 33.2 H (26-32) pg MCHC 36.2 H (32-36) g/dl RDW 12.0 (11.5-14.0) % Plt Count 192 (150-450) K/mm3 MPV 9.7 H (6-9.5) fl Gran % 64.9 (36.0-66.0) % Eos # (Auto) 0.93 H (0-0.5) Absolute Lymphs (auto) 1.33 (1.0-4.6) Absolute Monos (auto) 0.92 (0.0-1.3) Lymphocytes % 14.6 L (24.0-44.0) % Monocytes % 10.1 (0.0-12.0) % Eosinophils % 10.2 H (0.00-5.0) % Basophils % 0.2 (0.0-0.4) % Absolute Granulocytes 5.91 (1.4-6.9) Basophils # 0.02 (0-0.4) Sodium (137-145) mmol/L Potassium (3.5-5.1) mmol/L Chloride (98-107) mmol/L Carbon Dioxide (22-30) mmol/L Anion Gap (5-15) MEQ/L BUN (9-20) mg/dL Creatinine (0.66-1.25) mg/dL Estimated GFR ML/MIN Glucose (74-106) mg/dL Calcium (8.4-10.2) mg/dL Total Bilirubin (0.2-1.3) mg/dL AST (17-59) U/L ALT (0-50) U/L Alkaline Phosphatase (38-126) U/L Serum Total Protein (6.3-8.2) g/dL Albumin (3.5-5.0) g/dL Ur Collection Type Urine Color (YELLOW) Urine Appearance (CLEAR) Urine pH (5-6) Ur Specific Thermal (1.005-1.025) Urine Protein (Negative) Urine Ketones (NEGATIVE) Urine Blood (0-5) Pravin/ul Urine Nitrite (NEGATIVE) Urine Bilirubin (NEGATIVE) Urine Urobilinogen (0-1) mg/dL Ur Leukocyte Esterase (NEGATIVE) Urine Culture Reflexed (NO) Urine Glucose (NEGATIVE) mg/dL Salicylates (2-20) mg/dL Urine Opiates Level (NEGATIVE) Ur Methadone (NEGATIVE) Acetaminophen (10-30) ug/ml Urine Barbiturates (NEGATIVE) Ur Phencyclidine (PCP) (NEGATIVE) Urine Amphetamine (NEGATIVE) U Benzodiazepine Level (NEGATIVE) Urine Cocaine (NEGATIVE) Urine Marijuana (THC) (NEGATIVE) Ethyl Alcohol (0-10) mg/dL Specimen Received - Progress Progress: improved Progress Note: 04/17/18 16:10 The patient was evaluated in the er by [facility] he signed a contract stating that he will not harm himself, and continue to state that he does not want to harm himself, patient is to follow up with [facility] as an outpatient with Brittnee Houston on April 19 at 8:45 AM. - Departure Time of Disposition: 16:12 Departure Disposition: Home Clinical Impression: Depression Qualifiers: Depression Type: unspecified Qualified Code(s): F32.9 - Major depressive disorder, single episode, unspecified Condition: Fair Critical Care Time: No Referrals: FIONA GARBER [ACTIVE STAFF] - Additional Instructions: Return home, continue your current medications. follow up with [facility] (Brittnee Houston) April 19 at 8:45 am. Return for acute distress or for severe symptoms.
[2018-04-17 12:22] LABS: ALBUMIN 4.4 g/dL (3.5-5.0); ALKALINE PHOSPHATASE 56 U/L (38-126); ANION GAP 13.8 MEQ/L (5-15); BLOOD UREA NITROGEN 15 mg/dL (9-20); CHLORIDE 98 mmol/L (98-107); Carbon Dioxide 22 mmol/L (22-30); Creatinine 1 1.05 mg/dL (0.66-1.25); Glucose 110 mg/dL (74-106); SGOT/AST 21 U/L (17-59); SGPT/ALT 15 U/L (0-50); SODIUM 129 mmol/L (137-145)
[2018-04-17 12:23] LABS: ACETAMINOPHEN < 10 ug/ml (10-30); ETHYL ALCOHOL < 10 mg/dL (0-10); SALICYLATE < 1.0 mg/dL (2-20)
[2018-04-17 12:25] LABS: Appearance CLEAR (CLEAR); Bilirubin NEGATIVE (NEGATIVE); Blood NEGATIVE Ery/ul (0-5); Glucose NEGATIVE (NEGATIVE); Ketones NEGATIVE (NEGATIVE); Leukocyte Esterase NEGATIVE (NEGATIVE); Nitrite NEGATIVE (NEGATIVE); Protein,Urine Dip NEGATIVE (Negative); Specific Gravity 1.005 (1.005-1.025); Urobilinogen NORMAL mg/dL (0-1)
[2018-04-17 12:38] LABS: Amphetamine,Urine NEGATIVE (NEGATIVE); Barbiturate,Urine NEGATIVE (NEGATIVE); Benzodiazepine,Urine NEGATIVE (NEGATIVE); Cocaine,Urine NEGATIVE (NEGATIVE); Methadone,Urine NEGATIVE (NEGATIVE); Opiate,Urine NEGATIVE (NEGATIVE); PCP,Urine NEGATIVE (NEGATIVE); THC,Urine NEGATIVE (NEGATIVE)
[2018-04-17 15:43] VITALS: PULSE 64
[2018-04-17 16:18] VITALS: BP 121/74; O2SAT 98
== END 2018-04-17 17:00 | disposition home or self-care (01) ==
LOC: ED 11:25
DX: F32.9 Major depressive disorder, single episode, unspecified (principal); Z79.899 Other long term (current) drug therapy
CPT/HCPCS: 36000; 36415; 80053; 80307; 81002; 85025; 90791; 93005; 99284; G0481; Q3014; G0480

== ENCOUNTER 2020-01-13 18:42 | Observation (INO) | payer OTHER ==
--- NOTE | 2020-01-13 19:00 | ERPHSYRPT ---
- History of Present Illness Time Seen by Provider: 01/13/20 19:00 Source: patient, EMS Exam Limitations: no limitations Physician History: The patient is a 64-year-old male who presents with a chief complaint of an episode of vomiting according to EMS. EMS reports that they picked the patient up at his residence he has a complaint of vomiting however on my exam he stated he needed his "medication refilled" and was specifically asking for clonazepam. He states he has been taken clonazepam for "anxiety" but has been bit out of this medication for "a while". He denies vomiting and states that he just spit up this evening. Of note, the patient is a poor historian and reportedly was covered in bedbugs requiring him to be decontaminated before being moved into the emergency department when he arrived by EMS. The patient was unable to tell me the year but he knows that the day of the week. He reportedly lives with his "nephew" but myself and the nursing staff are unable to get a hold of any family members at this time to provide any other details pertaining to the HPI. The patient does deny current alcohol use and works that he used to be a "drinker" but quit a number of years ago. He denies any chest pain, shortness of breath, cough, diarrhea, abdominal pain and vomiting. Associated Symptoms: nausea, No vomiting, No abdominal pain, No shortness of breath, No diaphoresis, No seizure Allergies/Adverse Reactions: No Known Drug Allergies Allergy (Verified 01/13/20 18:47) Home Medications: Clonazepam [Klonopin] 1 mg PO TID 11/10/16 [History] Metoprolol Succinate 50 mg [Toprol Xl 50 MG] 100 mg PO DAILY 11/10/16 [ History] Quetiapine Fumarate 100 mg [Seroquel 100 MG] 150 mg PO HS 11/10/16 [ History] Risperidone 1 mg [Risperdal 1 MG] 1 mg PO HS 11/10/16 [History] Amlodipine Besylate 10 mg [Norvasc 10 MG] 10 mg PO HS 04/17/18 [History] Lisinopril/Hydrochlorothiazide [Lisinopril-Hctz 20-12.5 mg Tab] 1 each PO DAILY 08/12/18 [History] Hx Tetanus, Diphtheria Vaccination/Date Given: Yes Hx Influenza Vaccination/Date Given: No Hx Pneumococcal Vaccination/Date Given: No - Review of Systems Constitutional: No Fever, No Chills Cardiac: No Chest Pain Abdominal/Gastrointestinal: No Abdominal Pain Neurological: Tremors Psychological: Anxiety All Other Systems: Unable due to condition (Mental status) - Past Medical History Pertinent Past Medical History: Yes Neurological History: Other ENT History: No Pertinent History Cardiac History: Hypertension Respiratory History: No Pertinent History Endocrine Medical History: No Pertinent History Musculoskeletal History: No Pertinent History GI Medical History: No Pertinent History, GERD History: No Pertinent History Psycho-Social History: Anxiety Male Reproductive Disorders: No Pertinent History Other Medical History: CP, 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 - Past Surgical History Past Surgical History: Yes Other Surgical History: SKIN CA REMOVED - Social History Smoking Status: Former smoker How long have you smoked: 35 Exposure to second hand smoke: No Alcohol Use: None Drug Use: none Patient Lives Alone: No Significant Family History: no pertinent family hx - Nursing Vital Signs Nursing Vital Signs: Initial Vital Signs Temperature 98.0 F 01/13/20 19:12 Pulse Rate 116 H 01/13/20 19:12 Respiratory Rate 18 01/13/20 19:12 Blood Pressure 168/78 01/13/20 19:12 O2 Sat by Pulse Oximetry 100 01/13/20 19:12 Pain Scale Pain Intensity 0 - Physical Exam General Appearance: other (The patient was awake but appeared disoriented and confused. He was obviously tremulous and tachycardic.) Eye Exam: PERRL/EOMI, other (The right conjunctive appear to be injected and the right upper eyelid appeared to be swollen but there was no obvious eye trauma bleeding or increased warmth or purulent drainage) Ears, Nose, Throat Exam: normal ENT inspection, other (There was no evidence of tongue trauma) Neck Exam: normal inspection, supple Respiratory Exam: normal breath sounds, lungs clear, No chest tenderness, No respiratory distress, No prolonged expirations, No crackles/rales, No rhonchi, No wheezing, No stridor Cardiovascular Exam: normal heart sounds, normal peripheral pulses, tachycardia , capillary refill <2 sec Gastrointestinal/Abdomen Exam: soft, distention, other (Possible ascites present ), No guarding, No organomegaly Male Genitalia Exam: normal genitalia Back Exam: normal inspection, No point tenderness Extremity Exam: pelvis stable, swelling, No contusions, No calf tenderness, No deformities, No joint swelling, No tenderness 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, other (The patient was alert but not oriented to the year and was oriented to person and knows that he is in a hospital. Tremors noted in upper extremities/hands) Skin Exam: dry, pale, other (There were numerous excoriation and small punctate lesions on his skin mainly to the upper arms trunk and lower extremities consistent with bedbug bites), No jaundice, No cyanosis, No diaphoresis SpO2 Interpretation: normal O2 Delivery: Room Air - Course Nursing assessment & vital signs reviewed: Yes EKG Interpreted by Me: Sinus Tach, NORMAL AXIS, prolonged QT interval, Non- specific ST Changes - Radiology Exams Chest X-ray Interpretation: Interpreted by me, Reviewed by me, Negative - CT Exams Head CT Interpretation: Other (No acute cortical infarct, intracranial hemorrhage or mass. 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 ) Ordered Tests: Active Orders 24 hr Category Date Time Status Up With Assistance TOLERATED Activity 01/13/20 22:11 Active Accucheck STAT Care 01/13/20 19:26 Completed Catheter-[place] Vieyra ROUTINE Care 01/13/20 22:11 Active Code Status Order ROUTINE Care 01/13/20 22:11 Active EKG-ER Only STAT Care 01/13/20 19:21 Completed Vieyra [Catheter-[place] Vieyra] STAT Care 01/13/20 20:26 Completed IV Insertion ROUTINE Care 01/13/20 22:11 Active IV Insertion STAT Care 01/13/20 19:21 Completed NPO (ED) STAT Care 01/13/20 19:[address] in Observation ROUTINE Care 01/13/20 22:11 Active Pulse Oximetry (ED) STAT Care 01/13/20 19:26 Completed Seizure Precautions -SCCHED STAT Care 01/13/20 19:26 Completed Vital Signs Q2H Care 01/13/20 22:11 Active Marble Setter Helper/Discharge Plan ROUTINE Cons 01/13/20 22:11 Active Clear Liquid Diet 01/13/20 Breakfast Active CHEST 2 VIEWS (PA AND LAT) Stat Exams 01/13/20 19:22 Taken HEAD WITHOUT CONTRAST [CT] Stat Exams 01/13/20 19:25 Taken BMP AM.LAB Lab 01/14/20 04:00 Ordered CBC W DIFF AM.LAB Lab 01/14/20 04:00 Ordered CBC W DIFF Stat Lab 01/13/20 19:35 Completed CMP Stat Lab 01/13/20 19:35 Completed CULTURE,URINE Stat Lab 01/13/20 20:25 Received LIPASE Stat Lab 01/13/20 19:35 Completed Lactic Acid Stat Lab 01/13/20 19:35 Completed MAGNESIUM Stat Lab 01/13/20 19:35 Completed Manual Differential NC Stat Lab 01/13/20 19:35 Completed PHOSPHOROUS Stat Lab 01/13/20 19:35 Completed TROPONIN Stat Lab 01/13/20 19:35 Completed UA W/RFX UR CULTURE Stat Lab 01/13/20 20:25 Completed Pulse Oximetry ROUTINE RT 01/13/20 22:11 Active Transfer Order Routine Transfer 01/13/20 Completed Medication Summary Generic Name Dose Route Start Last Admin Trade Name Freq PRN Reason Stop Dose Admin Acetaminophen 975 mg 01/13/20 22:11 Tylenol 325 Mg PO 02/12/20 22:10 Q4H PRN PRN PAIN, FEVER, HEADACHE Amlodipine Besylate 10 mg 01/13/20 22:11 Norvasc 5 Mg PO 02/12/20 22:10 HS CL[place] Chlordiazepoxide HCl 25 mg 01/13/20 22:11 Librium 25 Mg PO 02/12/20 22:10 TID [place] Lisinopril 20 mg/ 0 mg 01/14/20 09:00 Hydrochlorothiazide 12.5 mg PO 02/13/20 08:59 DAILY CL[place] Metoprolol Succinate 100 mg 01/14/20 09:00 Toprol Xl 100 Mg PO 02/13/20 08:59 DAILY CL[place] Discontinued Medications Generic Name Dose Route Start Last Admin Trade Name Freq PRN Reason Stop Dose Admin Chlordiazepoxide HCl 50 mg 01/13/20 19:27 01/13/20 19:40 Librium 25 Mg PO 01/13/20 19:28 50 mg STAT ONE Administration Sodium Chloride 1,000 mls @ 999 mls/hr 01/13/20 21:02 01/13/20 22:15 Sodium Chloride 0.9% 1000 Ml IV 01/13/20 22:02 Infused .Q1H1M STA Infusion Sodium Chloride Confirm 01/13/20 21:03 Sodium Chloride 0.9% 1000 Ml Administered 01/13/20 21:04 Dose 1,000 mls @ ud .ROUTE .STK-MED ONE Lidocaine HCl 200 mg 01/13/20 20:14 01/13/20 20:14 Xylocaine 2% Uro-Jet TOP 01/13/20 20:15 200 mg STAT ONE Administration Lidocaine HCl Confirm 01/13/20 20:11 Xylocaine 2% Uro-Jet Administered 01/13/20 20:12 Dose 200 mg .ROUTE .ST-MED ONE Lab/Rad Data: Laboratory Result Diagrams 01/13/20 19:35 01/13/20 19:35 Laboratory Results 01/13/20 01/13/20 01/13/20 Range/Units 20:25 19:35 19:35 WBC (4.0-10.5) K/mm3 RBC (4.1-5.6) M/mm3 Hgb (12.5-18.0) gm/dl Hct (42-50) % MCV (78-100) fl MCH (26-32) pg MCHC (32-36) g/dl RDW (11.5-14.0) % Plt Count (150-450) K/mm3 MPV (7.5-11.0) fl Absolute Granulocytes (1.4-6.9) Segmented Neutrophils (36.-66.) % Lymphocytes (Manual) (24-44) % Monocytes (Manual) (0.0-12.0) % Eosinophils (Manual) (0.00-3.0) % Basophils (Manual) (0.0-1.0) % Platelet Estimate (NORMAL) RBC Morphology Sodium (137-145) mmol/L Potassium (3.5-5.1) mmol/L Chloride (98-107) mmol/L Carbon Dioxide (22-30) mmol/L Anion Gap (5-15) MEQ/L BUN (9-20) mg/dL Creatinine (0.66-1.25) mg/dL Estimated GFR ML/MIN Glucose (74-106) mg/dL Lactic Acid (0.4-2.0) Calcium (8.4-10.2) mg/dL Phosphorus 2.6 (2.5-4.5) mg/dL Magnesium 2.1 (1.6-2.3) mg/dL Total Bilirubin (0.2-1.3) mg/dL AST (17-59) U/L ALT (0-50) U/L Alkaline Phosphatase (38-126) U/L Troponin I (0.000-0.034) ng/mL Serum Total Protein (6.3-8.2) g/dL Albumin (3.5-5.0) g/dL Lipase (23-300) U/L Urine Color STRAW (YELLOW) Urine Appearance CLEAR (CLEAR) Urine pH 7.0 (5-6) Ur Specific [place] 1.002 (1.005-1.025) Urine Protein NEGATIVE (Negative) Urine Ketones NEGATIVE (NEGATIVE) Urine Blood MODERATE (0-5) Pravin/ul Urine Nitrite NEGATIVE (NEGATIVE) Urine Bilirubin NEGATIVE (NEGATIVE) Urine Urobilinogen NEGATIVE (0-1) mg/dL Ur Leukocyte Esterase NEGATIVE (NEGATIVE) Urine WBC (Auto) NONE (0-5) /HPF Urine RBC (Auto) 0-2 (0-2) /HPF U Epithel Cells (Auto) NONE (FEW) /HPF Urine Bacteria (Auto) NONE (NEGATIVE) /HPF Urine Culture Reflexed ORDERED SEPARATELY (NO) Urine Glucose NEGATIVE (NEGATIVE) mg/dL 01/13/20 01/13/20 01/13/20 Range/Units 19:35 19:35 19:35 WBC 7.5 (4.0-10.5) K/mm3 RBC 3.86 L (4.1-5.6) M/mm3 Hgb 11.2 L (12.5-18.0) gm/dl Hct 34.7 L (42-50) % MCV 89.9 (78-100) fl MCH 29.0 (26-32) pg MCHC 32.3 (32-36) g/dl RDW 15.1 H (11.5-14.0) % Plt Count 224 (150-450) K/mm3 MPV 9.3 (7.5-11.0) fl Absolute Granulocytes 5.57 (1.4-6.9) Segmented Neutrophils 70 H (36.-66.) % Lymphocytes (Manual) 15 L (24-44) % Monocytes (Manual) 10 (0.0-12.0) % Eosinophils (Manual) 4 H (0.00-3.0) % Basophils (Manual) 1 (0.0-1.0) % Platelet Estimate NORMAL (NORMAL) RBC Morphology NORMAL Sodium 138 (137-145) mmol/L Potassium 3.6 (3.5-5.1) mmol/L Chloride 104 (98-107) mmol/L Carbon Dioxide 23 (22-30) mmol/L Anion Gap 14.6 (5-15) MEQ/L BUN 10 (9-20) mg/dL Creatinine 0.96 (0.66-1.25) mg/dL Estimated GFR > 60.0 ML/MIN Glucose 147 H (74-106) mg/dL Lactic Acid 1.5 (0.4-2.0) Calcium 8.8 (8.4-10.2) mg/dL Phosphorus (2.5-4.5) mg/dL Magnesium (1.6-2.3) mg/dL Total Bilirubin 0.30 (0.2-1.3) mg/dL AST 23 (17-59) U/L ALT 23 (0-50) U/L Alkaline Phosphatase 69 (38-126) U/L Troponin I < 0.012 (0.000-0.034) ng/mL Serum Total Protein 7.5 (6.3-8.2) g/dL Albumin 4.1 (3.5-5.0) g/dL Lipase 81 (23-300) U/L Urine Color (YELLOW) Urine Appearance (CLEAR) Urine pH (5-6) Ur Specific [place] (1.005-1.025) Urine Protein (Negative) Urine Ketones (NEGATIVE) Urine Blood (0-5) Pravin/ul Urine Nitrite (NEGATIVE) Urine Bilirubin (NEGATIVE) Urine Urobilinogen (0-1) mg/dL Ur Leukocyte Esterase (NEGATIVE) Urine WBC (Auto) (0-5) /HPF Urine RBC (Auto) (0-2) /HPF U Epithel Cells (Auto) (FEW) /HPF Urine Bacteria (Auto) (NEGATIVE) /HPF Urine Culture Reflexed (NO) Urine Glucose (NEGATIVE) mg/dL - Progress Progress: improved Progress Note: 01/13/20 20:06 The patient presents with what appears confusion and altered mentation, tachycardia, and appears to be tremulous in the context of reportedly running out of clonazepam for my guess is a week. There are no family members available that can provide any details pertaining to the HPI my concern is that he is suffering from possible benzodiazepine withdrawal specifically his Klonopin, and may have actually suffered a seizure that was unwitnessed at home. This may also be his baseline mental status. At this point, the patient is in no shape to be discharged from the emergency department I suspect he will need admission for further evaluation and management in addition to social reasons and possible facility placement. Adult protective services will likely need to get involved. He may also be suffering a toxic metabolic encephalopathy , delirium from an infectious etiology, or intracranial hemorrhage or mass or possibly an old CVA. I will go ahead and order labs specifically CBC, CMP, magnesium, phosphorus, UA, troponin to eval for evidence of an infectious etiology, electrolyte disturbance, and STEMI, etc. I will also order a lactate to eval for evidence of elevation which may suggest that he had a recent seizure. EKG will be ordered to eval his QRS duration given that it appears she has multiple medications listed that can prolong his QT as well as to screen for evidence of myocardial ischemia or injury pattern. I will go ahead and order neurocranial imaging consisting of a non-contrasted head CT at this time in addition to a chest x-ray, the chest x-ray to eval for evidence of pneumonia or evidence of aspiration pneumonia. I will go ahead and administer 50 mg of p.o. to start treating his suspected benzodiazepine withdrawal. The nursing staff attempted to contact the patient's next of kin and would get somebody to answer the phone but they were quickly hang up. A subsequent follow -up phone call was met with going straight to [facility]. 01/13/20 20:59 The patient was reassessed to find that he was feeling better after receiving Librium. 01/13/20 21:03 Dr. Quiroga being paged now for admission 01/13/20 21:[address] Quiroga who agreed to admit after discussing the case with her. She agreed that adult protective services will likely need to be involved in this case but they can be contacted tomorrow. 01/13/20 22:17 Discussed with : Anyi Will see patient in: hospital (observation) Counseled pt/family regarding: lab results, diagnosis, rad results - Departure Departure Disposition: Observation Clinical Impression: Withdrawal from benzodiazepine, Normocytic anemia, Bedbug bite, Hypertension, Anxiety, Poor social situation Condition: Stable Critical Care Time: No
[2020-01-13] MEDS ORDERED: LIBRIUM 25 MG PO ONE (19:27)
[2020-01-13 19:42] LABS: Absolute Neutrophil Ct (ANC) 5.57 (1.4-6.9); Hematocrit 34.7 % (42-50); Hemoglobin 11.2 gm/dl (12.5-18.0); Mean Cell Volume 89.9 fl (78-100); Mean Corpuscular Hgb Concent. 32.3 g/dl (32-36); Mean Platelet Volume 9.3 fl (7.5-11.0); Platelet Count 224 K/mm3 (150-450); Red Blood Count 3.86 M/mm3 (4.1-5.6); Red Cell Distribution Width 15.1 % (11.5-14.0); White Blood Count 7.5 K/mm3 (4.0-10.5)
[2020-01-13 20:05] LABS: ALBUMIN 4.1 g/dL (3.5-5.0); ALKALINE PHOSPHATASE 69 U/L (38-126); ANION GAP 14.6 MEQ/L (5-15); BLOOD UREA NITROGEN 10 mg/dL (9-20); CHLORIDE 104 mmol/L (98-107); Calcium 8.8 mg/dL (8.4-10.2); Carbon Dioxide 23 mmol/L (22-30); Creatinine 1 0.96 mg/dL (0.66-1.25); Glucose 147 mg/dL (74-106); LIPASE 81 U/L (23-300); Potassium 3.6 mmol/L (3.5-5.1); SGOT/AST 23 U/L (17-59); SGPT/ALT 23 U/L (0-50); SODIUM 138 mmol/L (137-145); Total Protein 7.5 g/dL (6.3-8.2)
[2020-01-13 20:06] LABS: TROPONIN < 0.012 ng/mL (0.000-0.034)
[2020-01-13] MEDS ORDERED: XYLOCAINE 2% Uro-Jet ONE (20:11)
[2020-01-13] MEDS ORDERED: XYLOCAINE 2% Uro-Jet TOP ONE (20:14)
[2020-01-13 20:21] LABS: Basophil 1 % (0.0-1.0); Eosinophil 4 % (0.00-3.0); Lymphocytes 15 % (24-44); Monocyte 10 % (0.0-12.0); Neutrophils 70 % (36.-66.); Platelet Estimate NORMAL (NORMAL); Total Cells Counted 100
[2020-01-13 20:45] LABS: Appearance CLEAR (CLEAR); Bilirubin NEGATIVE (NEGATIVE); Blood MODERATE Ery/ul (0-5); Glucose NEGATIVE (NEGATIVE); Ketones NEGATIVE (NEGATIVE); Leukocyte Esterase NEGATIVE (NEGATIVE); Nitrite NEGATIVE (NEGATIVE); Protein,Urine Dip NEGATIVE (Negative); RBC 0-2 /HPF (0-2); Specific Gravity 1.002 (1.005-1.025); Urobilinogen NEGATIVE mg/dL (0-1)
[2020-01-13] MEDS ORDERED: Sodium Chloride 0.9% 1000 ML 1,000 ML IV STA (21:02)
[2020-01-13] MEDS ORDERED: Sodium Chloride 0.9% 1000 ML 1,000 ML ONE (21:03)
[2020-01-13] MEDS ORDERED: TYLENOL 325 MG PO PRN (22:11)
[2020-01-13] MEDS: Ativan 2 MG/1 ML VIAL IV PRN (22:44)
[2020-01-13] MEDS: NORVASC 5 MG PO SCH (22:45)
[2020-01-13] MEDS: LIBRIUM 25 MG PO SCH (22:52)
[2020-01-14] MEDS: Sodium Chloride 0.9% 10 ML FLUSH Syringe IV SCH ×3 (05:28→21:52)
[2020-01-14 06:19] LABS: Absolute Neutrophil Ct (ANC) 4.11 (1.4-6.9); BASOPHIL % 0.4 % (0.0-0.4); Basophil (Absolute #) 0.03 (0-0.4); Eosinophil % 15.8 % (0.00-5.0); Eosinophil (Absolute #) 1.18 (0-0.5); Hematocrit 33.5 % (42-50); Hemoglobin 10.6 gm/dl (12.5-18.0); Lymphocyte (Absolute #) 1.17 (1.0-4.6); Lymphocytes % 15.6 % (24.0-44.0); Mean Cell Volume 90.3 fl (78-100); Mean Corpuscular Hemoglobin 28.6 pg (26-32); Mean Corpuscular Hgb Concent. 31.6 g/dl (32-36); Mean Platelet Volume 9.6 fl (7.5-11.0); Monocyte (Absolute #) 0.99 (0.0-1.3); Monocytes % 13.2 % (0.0-12.0); Platelet Count 226 K/mm3 (150-450); Red Blood Count 3.71 M/mm3 (4.1-5.6); Red Cell Distribution Width 15.5 % (11.5-14.0); White Blood Count 7.5 K/mm3 (4.0-10.5)
[2020-01-14 06:32] LABS: ANION GAP 9.6 MEQ/L (5-15); BLOOD UREA NITROGEN 9 mg/dL (9-20); CHLORIDE 110 mmol/L (98-107); Calcium 8.3 mg/dL (8.4-10.2); Carbon Dioxide 24 mmol/L (22-30); Creatinine 1 0.94 mg/dL (0.66-1.25); Glucose 101 mg/dL (74-106); Potassium 3.7 mmol/L (3.5-5.1); SODIUM 141 mmol/L (137-145)
--- NOTE | 2020-01-14 08:25 | XRAY ---
Indication: Chest pain, tremors, and acute mental status change. Comparison: November 29, 2017. PA/lateral chest unchanged again hyperinflated and clear with incidental calcified granulomas. Heart is not enlarged. Bony thorax intact again with mild double curvature scoliosis. No new/acute findings.
--- NOTE | 2020-01-14 08:27 | XRAY ---
Indication: Acute mental status change and tremors. Hypertension. Multiple contiguous axial images obtained through the head without contrast. Comparison: November 29, 2017. 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 No acute intracranial hemorrhage, hydrocephalus, or mass effect. Fourth ventricle is midline. Bel[place]an-white matter differentiation preserved. Bony calvarium intact. Visualized paranasal sinuses and mastoid air cells are clear. Impression: Stable left cerebral porencephalic cyst. No new or acute intracranial abnormalities. Comment: Preliminary interpretation was made by [facility]. No critical discrepancy.
[2020-01-14] MEDS: Toprol Xl 100 MG PO SCH (09:12)
[2020-01-14] MEDS: LIBRIUM 25 MG PO SCH ×3 (09:12→21:51)
[2020-01-14] MEDS: Zestril 20 MG*** 20 MG, hydroDIURIL 25 MG*** 12.5 MG PO SCH ×2 (09:12)
[2020-01-14] MEDS ORDERED: [UNRECOGNIZED DRUG - OTHER] IH SCH (10:00)
[2020-01-14] MEDS ORDERED: NON-FORMULARY ITEM (Lisinopril/Hydrochlorothiazide [Lisinopril-Hctz 20-12.5 Mg Tab] 1 EACH PO SCH (10:00)
[2020-01-14] MEDS ORDERED: MEDICATION INTERVENTION MC SCH (10:00)
[2020-01-14] MEDS ORDERED: BUDESONIDE IH SCH (10:00)
[2020-01-14] MEDS ORDERED: FORMOTEROL FUMARATE IH SCH (10:00)
[2020-01-14] MEDS: Ativan 2 MG/1 ML VIAL IV PRN ×3 (10:26→18:29)
--- NOTE | 2020-01-14 15:25 | PCM.HP ---
History of Present Illness - Chief Complaint Chief Complaint: Withdraw from benzo, Normocytic anemia, HRN, Anxiety, Poor Social Situation Date: 01/14/20 History of Present Illness: is a 64 year old male seen and examined this am following ER admission for suspected benzo withdrawal. Patient is a limited historian and at times has difficult speech to understand. Patient reports that he did get his benzo medication filled in december. He reports that instead of taking his prescribed 3 tablets a day he started taking 5 day because he was having more anxiety. Patient denies any new acute stressors that would be causing his anxiety. Patient reports that he is aware that his home has bed bugs. He reports that they have been trying to get it taken care of. Patient reports that his nephew Sushant Torrez. He reports that he is able to care for himself and that home health comes in every two weeks to help him. Patient reports occasional headaches. He denies any other symptoms. He reports hx of HTN. He denies substance use. He chews tobacco. 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 Patient is also a limited historian) Medications & Allergies Home Medications: Home Medication List Clonazepam [Klonopin] 1 mg PO TID 11/10/16 [History Confirmed 01/13/20] Metoprolol Succinate 50 mg [Toprol Xl 50 MG] 100 mg PO DAILY 11/10/16 [ History Confirmed 01/13/20] Quetiapine Fumarate 100 mg [Seroquel 100 MG] 150 mg PO HS 11/10/16 [ History Confirmed 01/13/20] Risperidone 1 mg [Risperdal 1 MG] 1 mg PO HS 11/10/16 [History Confirmed 01/13/20] Amlodipine Besylate 10 mg [Norvasc 10 MG] 10 mg PO HS 04/17/18 [History Confirmed 01/13/20] Lisinopril/Hydrochlorothiazide [Lisinopril-Hctz 20-12.5 mg Tab] 1 each PO DAILY 04/17/18 [History Confirmed 01/13/20] Budesonide/Formoterol Fumarate [Budesonide-Formoterol 160-4.5] 2 puffs IH BID [History Confirmed 01/14/20] Allergies/Adverse Reactions: Allergies Allergy/AdvReac Type Severity Reaction Status Date / Time No Known Drug Allergies Allergy Verified 01/13/20 18:47 - Past Medical History Past Medical History: Yes Neurological History: Other ENT History: No Pertinent History Cardiac History: Hypertension Respiratory History: No Pertinent History Endocrine Medical History: No Pertinent History Musculoskelatal History: No Pertinent History GI Medical History: No Pertinent History, GERD History: No Pertinent History Pyscho-Social History: Anxiety Male Reproductive Disorders: No Pertinent History Comment: CP, 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 - Past Surgical History Past Surgical History: Yes Other Surgical History: SKIN CA REMOVED - Social History Smoking Status: Former smoker How long have you smoked: 35 Exposure to second hand smoke: No Alcohol: None Drug Use: none Significant Family History: no pertinent family hx - Physical Exam Vital Signs: Vital Signs - 24 hr Temp Pulse Resp BP Pulse Ox 01/14/20 12:00 97.9 F 63 14 134/76 94 L 01/14/20 10:00 98.7 F 88 14 130/72 97 01/14/20 08:00 98.2 F 88 15 149/80 96 01/14/20 06:00 98.9 F 75 14 150/88 94 L 01/14/20 04:23 98.7 F 85 16 144/73 97 01/14/20 01:58 98.7 F 95 H 20 144/75 98 01/14/20 00:00 99.0 F 105 H 23 146/79 97 01/13/20 23:06 99.1 F 101 H 16 167/81 98 01/13/20 21:02 98 H 18 135/84 99 01/13/20 20:17 97 H 144/81 100 01/13/20 19:38 106 H 155/82 100 01/13/20 19:37 99 01/13/20 19:12 98.0 F 116 H 18 168/78 100 General Appearance: mild distress, No anxiety 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, cooperative, motor deficits (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 Tongue deviates to the R side), No disoriented, No confusion, No agitation, No uncooperative Eye Exam: other (R sided eyelid droop. Conjunctiva is injected R side. There is a lesion on inner corner of Left eye.) Ears, Nose, Throat Exam: moist mucous membranes, other (Tongue deviation to the R) Neck Exam: normal inspection, No carotid bruit, No JVD Respiratory Exam: normal breath sounds, No diminished breath sounds, No crackles /rales, No rhonchi, No wheezing Cardiovascular Exam: normal heart sounds, tachycardia (Patient at times has been tachycardic), No murmur, No friction rub, No gallop Gastrointestinal/Abdomen Exam: soft, normal bowel sounds, No tenderness, No distention Male Genitalia Exam: normal genitalia, other (Vieyra cath in place) Extremity Exam: other (Tremors present in hands bilaterally), No pedal edema Skin Exam: normal color, warm, dry, other (There is a suspicious .5 cm lesion on middle left cheeck. Patient has large lesion on R nostril about 1.5 cm in size. Patient has diffuse bite /scabs with areas of excoriation.) Results - Labs Lab/Micro Results: Accuchecks Accucheck Value: 136 Lab Results-Last 24 Hours 01/13/20 01/13/20 01/13/20 Range/Units 19:35 19:35 19:35 WBC 7.5 (4.0-10.5) K/mm3 RBC 3.86 L (4.1-5.6) M/mm3 Hgb 11.2 L (12.5-18.0) gm/dl Hct 34.7 L (42-50) % MCV 89.9 (78-100) fl MCH 29.0 (26-32) pg MCHC 32.3 (32-36) g/dl RDW 15.1 H (11.5-14.0) % Plt Count 224 (150-450) K/mm3 MPV 9.3 (7.5-11.0) fl Gran % (36.0-66.0) % Eos # (Auto) (0-0.5) Absolute Lymphs (auto) (1.0-4.6) Absolute Monos (auto) (0.0-1.3) Lymphocytes % (24.0-44.0) % Monocytes % (0.0-12.0) % Eosinophils % (0.00-5.0) % Basophils % (0.0-0.4) % Absolute Granulocytes 5.57 (1.4-6.9) Segmented Neutrophils 70 H (36.-66.) % Lymphocytes (Manual) 15 L (24-44) % Monocytes (Manual) 10 (0.0-12.0) % Eosinophils (Manual) 4 H (0.00-3.0) % Basophils (Manual) 1 (0.0-1.0) % Basophils # (0-0.4) Platelet Estimate NORMAL (NORMAL) RBC Morphology NORMAL Sodium 138 (137-145) mmol/L Potassium 3.6 (3.5-5.1) mmol/L Chloride 104 (98-107) mmol/L Carbon Dioxide 23 (22-30) mmol/L Anion Gap 14.6 (5-15) MEQ/L BUN 10 (9-20) mg/dL Creatinine 0.96 (0.66-1.25) mg/dL Estimated GFR > 60.0 ML/MIN Glucose 147 H (74-106) mg/dL Lactic Acid 1.5 (0.4-2.0) Calcium 8.8 (8.4-10.2) mg/dL Phosphorus (2.5-4.5) mg/dL Magnesium (1.6-2.3) mg/dL Total Bilirubin 0.30 (0.2-1.3) mg/dL AST 23 (17-59) U/L ALT 23 (0-50) U/L Alkaline Phosphatase 69 (38-126) U/L Troponin I < 0.012 (0.000-0.034) ng/mL Serum Total Protein 7.5 (6.3-8.2) g/dL Albumin 4.1 (3.5-5.0) g/dL Lipase 81 (23-300) U/L Urine Color (YELLOW) Urine Appearance (CLEAR) Urine pH (5-6) Ur Specific [place] (1.005-1.025) Urine Protein (Negative) Urine Ketones (NEGATIVE) Urine Blood (0-5) Pravin/ul Urine Nitrite (NEGATIVE) Urine Bilirubin (NEGATIVE) Urine Urobilinogen (0-1) mg/dL Ur Leukocyte Esterase (NEGATIVE) Urine WBC (Auto) (0-5) /HPF Urine RBC (Auto) (0-2) /HPF U Epithel Cells (Auto) (FEW) /HPF Urine Bacteria (Auto) (NEGATIVE) /HPF Urine Culture Reflexed (NO) Urine Glucose (NEGATIVE) mg/dL 01/13/20 01/13/20 01/13/20 Range/Units 19:35 19:35 20:25 WBC (4.0-10.5) K/mm3 RBC (4.1-5.6) M/mm3 Hgb (12.5-18.0) gm/dl Hct (42-50) % MCV (78-100) fl MCH (26-32) pg MCHC (32-36) g/dl RDW (11.5-14.0) % Plt Count (150-450) K/mm3 MPV (7.5-11.0) fl Gran % (36.0-66.0) % Eos # (Auto) (0-0.5) Absolute Lymphs (auto) (1.0-4.6) Absolute Monos (auto) (0.0-1.3) Lymphocytes % (24.0-44.0) % Monocytes % (0.0-12.0) % Eosinophils % (0.00-5.0) % Basophils % (0.0-0.4) % Absolute Granulocytes (1.4-6.9) Segmented Neutrophils (36.-66.) % Lymphocytes (Manual) (24-44) % Monocytes (Manual) (0.0-12.0) % Eosinophils (Manual) (0.00-3.0) % Basophils (Manual) (0.0-1.0) % Basophils # (0-0.4) Platelet Estimate (NORMAL) RBC Morphology Sodium (137-145) mmol/L Potassium (3.5-5.1) mmol/L Chloride (98-107) mmol/L Carbon Dioxide (22-30) mmol/L Anion Gap (5-15) MEQ/L BUN (9-20) mg/dL Creatinine (0.66-1.25) mg/dL Estimated GFR ML/MIN Glucose (74-106) mg/dL Lactic Acid (0.4-2.0) Calcium (8.4-10.2) mg/dL Phosphorus 2.6 (2.5-4.5) mg/dL Magnesium 2.1 (1.6-2.3) mg/dL Total Bilirubin (0.2-1.3) mg/dL AST (17-59) U/L ALT (0-50) U/L Alkaline Phosphatase (38-126) U/L Troponin I (0.000-0.034) ng/mL Serum Total Protein (6.3-8.2) g/dL Albumin (3.5-5.0) g/dL Lipase (23-300) U/L Urine Color STRAW (YELLOW) Urine Appearance CLEAR (CLEAR) Urine pH 7.0 (5-6) Ur Specific [place] 1.002 (1.005-1.025) Urine Protein NEGATIVE (Negative) Urine Ketones NEGATIVE (NEGATIVE) Urine Blood MODERATE (0-5) Pravin/ul Urine Nitrite NEGATIVE (NEGATIVE) Urine Bilirubin NEGATIVE (NEGATIVE) Urine Urobilinogen NEGATIVE (0-1) mg/dL Ur Leukocyte Esterase NEGATIVE (NEGATIVE) Urine WBC (Auto) NONE (0-5) /HPF Urine RBC (Auto) 0-2 (0-2) /HPF U Epithel Cells (Auto) NONE (FEW) /HPF Urine Bacteria (Auto) NONE (NEGATIVE) /HPF Urine Culture Reflexed ORDERED SEPARATELY (NO) Urine Glucose NEGATIVE (NEGATIVE) mg/dL 01/14/20 01/14/20 Range/Units 05:30 05:30 WBC 7.5 (4.0-10.5) K/mm3 RBC 3.71 L (4.1-5.6) M/mm3 Hgb 10.6 L (12.5-18.0) gm/dl Hct 33.5 L (42-50) % MCV 90.3 (78-100) fl MCH 28.6 (26-32) pg MCHC 31.6 L (32-36) g/dl RDW 15.5 H (11.5-14.0) % Plt Count 226 (150-450) K/mm3 MPV 9.6 (7.5-11.0) fl Gran % 55.0 (36.0-66.0) % Eos # (Auto) 1.18 H (0-0.5) Absolute Lymphs (auto) 1.17 (1.0-4.6) Absolute Monos (auto) 0.99 (0.0-1.3) Lymphocytes % 15.6 L (24.0-44.0) % Monocytes % 13.2 H (0.0-12.0) % Eosinophils % 15.8 H (0.00-5.0) % Basophils % 0.4 (0.0-0.4) % Absolute Granulocytes 4.11 (1.4-6.9) Segmented Neutrophils (36.-66.) % Lymphocytes (Manual) (24-44) % Monocytes (Manual) (0.0-12.0) % Eosinophils (Manual) (0.00-3.0) % Basophils (Manual) (0.0-1.0) % Basophils # 0.03 (0-0.4) Platelet Estimate (NORMAL) RBC Morphology Sodium 141 (137-145) mmol/L Potassium 3.7 (3.5-5.1) mmol/L Chloride 110 H (98-107) mmol/L Carbon Dioxide 24 (22-30) mmol/L Anion Gap 9.6 (5-15) MEQ/L BUN 9 (9-20) mg/dL Creatinine 0.94 (0.66-1.25) mg/dL Estimated GFR > 60.0 ML/MIN Glucose 101 (74-106) mg/dL Lactic Acid (0.4-2.0) Calcium 8.3 L (8.4-10.2) mg/dL Phosphorus (2.5-4.5) mg/dL Magnesium (1.6-2.3) mg/dL Total Bilirubin (0.2-1.3) mg/dL AST (17-59) U/L ALT (0-50) U/L Alkaline Phosphatase (38-126) U/L Troponin I (0.000-0.034) ng/mL Serum Total Protein (6.3-8.2) g/dL Albumin (3.5-5.0) g/dL Lipase (23-300) U/L Urine Color (YELLOW) Urine Appearance (CLEAR) Urine pH (5-6) Ur Specific [place] (1.005-1.025) Urine Protein (Negative) Urine Ketones (NEGATIVE) Urine Blood (0-5) Pravin/ul Urine Nitrite (NEGATIVE) Urine Bilirubin (NEGATIVE) Urine Urobilinogen (0-1) mg/dL Ur Leukocyte Esterase (NEGATIVE) Urine WBC (Auto) (0-5) /HPF Urine RBC (Auto) (0-2) /HPF U Epithel Cells (Auto) (FEW) /HPF Urine Bacteria (Auto) (NEGATIVE) /HPF Urine Culture Reflexed (NO) Urine Glucose (NEGATIVE) mg/dL Accuchecks Accucheck Value: 136 - Radiology Impressions Radiology Exams & Impressions: Radiology Procedures Category Date Time Status CHEST 2 VIEWS (PA AND LAT) Stat Exams 01/13/20 19:22 Completed HEAD WITHOUT CONTRAST [CT] Stat Exams 01/13/20 19:25 Completed Assessment/Plan (1) Withdrawal from benzodiazepine Current Visit: Yes Status: Acute Assessment & Plan: Patient presented to ER with symptoms of possible benzo withdrawal. Patient had apparently been without his benzo medication for a week. He was started on Librium by ER physician who then reported patient's symptoms started to improve. Patient has had symptoms of HTN, tachycardia and tremors. He stated he had taken more then his prescribed dose and ran out of his medication. Patient is a limited historian. Unsure if he has the capacity to make good decisions in regards to his healthcare or if he chooses to make poor decisions because he is not competent. Nurse was instructed to notify APS on behave of patient. Patient may need psych eval once he is no longer symptomatic Code(s): F13.239 - SEDATV/HYP/ANXIOLYTC DEPENDENCE W WITHDRAWAL, UNSP (2) Misuse of medication Current Visit: Yes Status: Acute Assessment & Plan: Patient reports increased anxiety and started taking more of his prescribed medication for anxiety. He felt like the medication wasnt helping. Concern for sending patient home on this medication unsupervised as he could have a lethal unintentional overdose. Since librium was started will have to consider either a taper or have patient placed in a facility were his medication administration would be monitored. Code(s): F19.90 - OTHER PSYCHOACTIVE SUBSTANCE USE, UNSPECIFIED, UNCOMPLICATED (3) Anxiety Current Visit: Yes Status: Acute Assessment & Plan: Patient reports increased anxiety but denies any new acute stressors. Patient will need new medication tx plan for his anxiety Code(s): F41.9 - ANXIETY DISORDER, UNSPECIFIED (4) Bedbug bite Current Visit: Yes Status: Acute Assessment & Plan: Patient has noticeable bite palma and excoriations. Will contact aps as patient does not appear to have safe living conditions. Plan to get patient placed in a care facility if he qualifies Code(s): W57.XXXA - BIT/STUNG BY NONVENOM INSECT & OTH NONVENOM ARTHROPODS, INIT (5) Poor social situation Current Visit: Yes Status: Acute Assessment & Plan: ER reported multiple attempts to contact family and has not been successful. Patient may need placement in a facility to assure he is being cared for. Code(s): Z65.9 - PROBLEM RELATED TO UNSPECIFIED PSYCHOSOCIAL CIRCUMSTANCES (6) Hypertension Current Visit: Yes Status: Acute Assessment & Plan: Will continue to monitor bp. Will continue routine home meds for elevated bp Code(s): I10 - ESSENTIAL (PRIMARY) HYPERTENSION (7) Depression Current Visit: No Status: Acute Qualifiers: Depression Type: unspecified Qualified Code(s): F32.9 - Major depressive disorder, single episode, unspecified Assessment & Plan: Will continue routine meds for depression Code(s): F32.9 - MAJOR DEPRESSIVE DISORDER, SINGLE EPISODE, UNSPECIFIED (8) Blood in urine Current Visit: Yes Status: Acute Assessment & Plan: Patient had a cath urine collected. Follow up on culture but patient may need a repeat urine as cath placement may have been traumatic. Further testing if needed. Code(s): R31.9 - HEMATURIA, UNSPECIFIED (9) Normocytic anemia Current Visit: Yes Status: Acute Assessment & Plan: Normal MCV value. Patient may have anemia of chronic disease or other etiology. Code(s): D64.9 - ANEMIA, UNSPECIFIED
[2020-01-14] MEDS ORDERED: ENOXAPARIN SODIUM SQ SCH (21:02)
[2020-01-14 21:14] LABS: Hematocrit 34.9 % (42-50); Hemoglobin 11.1 gm/dl (12.5-18.0); Mean Cell Volume 91.1 fl (78-100); Mean Corpuscular Hgb Concent. 31.8 g/dl (32-36); Mean Platelet Volume 9.5 fl (7.5-11.0); Platelet Count 229 K/mm3 (150-450); Red Blood Count 3.83 M/mm3 (4.1-5.6); Red Cell Distribution Width 15.4 % (11.5-14.0); White Blood Count 9.6 K/mm3 (4.0-10.5)
[2020-01-14 21:25] LABS: Amphetamine,Urine NEGATIVE (NEGATIVE); Barbiturate,Urine NEGATIVE (NEGATIVE); Benzodiazepine,Urine NEGATIVE (NEGATIVE); Cocaine,Urine NEGATIVE (NEGATIVE); Methadone,Urine NEGATIVE (NEGATIVE); Opiate,Urine NEGATIVE (NEGATIVE); PCP,Urine NEGATIVE (NEGATIVE); THC,Urine NEGATIVE (NEGATIVE)
[2020-01-14] MEDS: NORVASC 5 MG PO SCH (21:51)
[2020-01-14] MEDS ORDERED: Risperdal 1 MG PO SCH (22:00)
[2020-01-14] MEDS ORDERED: Seroquel 100 MG PO SCH (22:00)
[2020-01-15 05:37] LABS: ALBUMIN 3.6 g/dL (3.5-5.0); ALKALINE PHOSPHATASE 66 U/L (38-126); ANION GAP 12.5 MEQ/L (5-15); BLOOD UREA NITROGEN 10 mg/dL (9-20); CHLORIDE 107 mmol/L (98-107); Calcium 8.6 mg/dL (8.4-10.2); Carbon Dioxide 24 mmol/L (22-30); Creatinine 1 0.87 mg/dL (0.66-1.25); Glucose 85 mg/dL (74-106); Potassium 3.9 mmol/L (3.5-5.1); SGOT/AST 20 U/L (17-59); SGPT/ALT 20 U/L (0-50); SODIUM 140 mmol/L (137-145); Total Protein 6.8 g/dL (6.3-8.2)
[2020-01-15 05:44] LABS: Iron 36 ug/dL (49-181); Iron Saturation 11 % (20-39); TIBC 346 ug/dL (261-497)
[2020-01-15] MEDS: Sodium Chloride 0.9% 10 ML FLUSH Syringe IV SCH (06:32)
[2020-01-15] MEDS: Zestril 20 MG*** 20 MG, hydroDIURIL 25 MG*** 12.5 MG PO SCH ×2 (09:10)
[2020-01-15] MEDS: LIBRIUM 25 MG PO SCH (09:10)
[2020-01-15] MEDS: Toprol Xl 100 MG PO SCH (09:13)
[2020-01-15] MEDS: KLONOPIN PO SCH ×2 (09:13→14:21)
[2020-01-15 13:52] VITALS: BP 131/68; PULSE 72; O2SAT 98
[2020-01-15] MEDS ORDERED: ENOXAPARIN SODIUM SQ SCH (21:00)
== END 2020-01-15 15:55 | disposition home health service (06) ==
LOC: ED 18:42 → MED SURG 22:10
PROVIDERS: ADMIT Family Medicine; ATTEND Family Medicine
DX: F19.930 Other psychoactive substance use, unspecified with withdrawal, uncomplicated (principal); F41.9 Anxiety disorder, unspecified; W57.XXXA Bitten or stung by nonvenomous insect and other nonvenomous arthropods, initial encounter; Z65.9 Problem related to unspecified psychosocial circumstances; I10 Essential (primary) hypertension; F32.9 Major depressive disorder, single episode, unspecified; R31.9 Hematuria, unspecified; D64.9 Anemia, unspecified; Z79.899 Other long term (current) drug therapy
CPT/HCPCS: 36000; 36415; 51702; 70450; 71046; 80048; 80053; 80307; 81001; 82728; 82962; 83540; 83550; 83605; 83690; 83735; 84100; 84466; 84484; 85025; 85027; 87086; 90791; 93005; 93268; 94760; 96360; 99285; G0378; Q3014; J1650; J2060; A9270-GY

== ENCOUNTER 2020-04-21 12:38 | Observation (INO) | payer OTHER ==
--- NOTE | 2020-04-21 13:39 | ERPHSYRPT ---
- History of Present Illness Time Seen by Provider: 04/21/20 13:37 Historian: EMS Exam Limitations: no limitations Patient Subjective Stated Complaint: RLQ pain after meals Triage Nursing Assessment: pt to ED c/o RLQ pain after meals x about a week. states pain is 8/10 after meals and goes away within a couple hours. 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 denies NVD. no COVID sx. Physician History: pt to ED c/o RLQ pain after meals x about a week. states pain is 8/10 after meals and goes away within a couple hours. 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 denies NVD. no COVID sx. Patient is heavily infested with lice and bed bugs Timing/Duration: week(s) Quality: cramping Abdominal Pain Onset Location: RLQ Pain Radiation: no radiation Severity of Pain-Max: mild Severity of Pain-Current: none Modifying Factors: Improves With: nothing Associated Symptoms: denies symptoms Previous symptoms: no prior history Allergies/Adverse Reactions: No Known Drug Allergies Allergy (Verified 01/13/20 18:47) Home Medications: Clonazepam [Klonopin] 1 mg PO TID 11/10/16 [History] Metoprolol Succinate 50 mg [Toprol Xl 50 MG] 100 mg PO DAILY 11/10/16 [History] Quetiapine Fumarate 100 mg [Seroquel 100 MG] 150 mg PO HS 11/10/16 [History] Risperidone 1 mg [Risperdal 1 MG] 1 mg PO HS 11/10/16 [History] Amlodipine Besylate 10 mg [Norvasc 10 MG] 10 mg PO HS 04/17/18 [History] Lisinopril/Hydrochlorothiazide [Lisinopril-Hctz 20-12.5 mg Tab] 1 each PO DAILY 04/17/18 [History] Budesonide/Formoterol Fumarate [Budesonide-Formoterol 160-4.5] 2 puffs IH BID 01/14/20 [History] Hx Tetanus, Diphtheria Vaccination/Date Given: Yes Hx Influenza Vaccination/Date Given: No Hx Pneumococcal Vaccination/Date Given: No Travel Risk - International Travel Have you traveled outside of the country in past 3 weeks: No - Coronavirus Screening Are you exhibiting any of the following symptoms?: No Close contact with a COVID-19 positive Pt in past 14-21 Days: No - Review of Systems Constitutional: No Fever, No Chills Eyes: No Symptoms Ears, Nose, & Throat: No Symptoms Respiratory: No Cough, No Dyspnea Cardiac: No Chest Pain, No Edema, No Syncope Abdominal/Gastrointestinal: Abdominal Pain, No Nausea, No Vomiting, No Diarrhea Genitourinary Symptoms: No Dysuria Musculoskeletal: No Back Pain, No Neck Pain Skin: No Rash Neurological: No Dizziness, No Focal Weakness, No Sensory Changes Psychological: No Symptoms Endocrine: No Symptoms All Other Systems: Reviewed and Negative - Past Medical History Pertinent Past Medical History: Yes Neurological History: Other ENT History: No Pertinent History Cardiac History: Hypertension Respiratory History: No Pertinent History Endocrine Medical History: No Pertinent History Musculoskeletal History: No Pertinent History GI Medical History: No Pertinent History, GERD History: No Pertinent History Psycho-Social History: Anxiety Male Reproductive Disorders: No Pertinent History Other Medical History: CP, 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 - Past Surgical History Past Surgical History: Yes Other Surgical History: SKIN CA REMOVED - Social History Smoking Status: Former smoker How long have you smoked: 35 Exposure to second hand smoke: No Alcohol Use: None Drug Use: none Patient Lives Alone: No Significant Family History: no pertinent family hx - Nursing Vital Signs Nursing Vital Signs: Initial Vital Signs Temperature 98.8 F 04/21/20 13:41 Pulse Rate 101 H 04/21/20 13:41 Respiratory Rate 16 04/21/20 13:41 Blood Pressure 128/79 04/21/20 13:41 O2 Sat by Pulse Oximetry 100 04/21/20 13:41 Pain Scale Pain Intensity 0 - Physical Exam General Appearance: no apparent distress, alert Eye Exam: PERRL/EOMI, eyes nml inspection Ears, Nose, Throat Exam: normal ENT inspection, pharynx normal, moist mucous membranes Neck Exam: normal inspection, non-tender, supple, full range of motion Respiratory Exam: normal breath sounds, lungs clear, No respiratory distress Cardiovascular Exam: regular rate/rhythm, normal heart sounds Gastrointestinal/Abdomen Exam: soft, tenderness (RLQ), No mass Back Exam: normal inspection, normal range of motion, No CVA tenderness, No vertebral tenderness Extremity Exam: normal inspection, normal range of motion, pelvis stable 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, oriented x 3, cooperative, normal mood/affect, nml cerebellar function, sensation nml, No motor deficits Skin Exam: normal color, warm, dry - Course Nursing assessment & vital signs reviewed: Yes - CT Exams Abdomen/Pelvis CT Interpretation: Tele-radiologist Report Ordered Tests: Active Orders 24 hr Category Date Time Status IV Insertion STAT Care 04/21/20 14:02 Active ABDOMEN AND PELVIS W/0 CONTRAS [CT] Stat Exams 04/21/20 13:36 Taken AMYLASE Stat Lab 04/21/20 14:01 Completed CBC W DIFF Stat Lab 04/21/20 14:01 Completed CMP Stat Lab 04/21/20 14:01 Completed LIPASE Stat Lab 04/21/20 14:01 Completed UA W/RFX UR CULTURE Stat Lab 04/21/20 14:08 Completed Medication Summary Generic Name Dose Route Start Last Admin Trade Name Freq PRN Reason Stop Dose Admin Sodium Chloride 1,000 mls @ 50 mls/hr 04/21/20 13:45 04/21/20 13:43 Sodium Chloride 0.9% 1000 Ml IV 05/21/20 13:44 50 mls/hr .Q20H [facility] Administration Lab/Rad Data: Laboratory Result Diagrams 04/21/20 14:01 04/21/20 14:01 Laboratory Results 04/21/20 04/21/20 04/21/20 Range/Units 14:08 14:01 14:01 WBC 9.8 (4.0-10.5) K/mm3 RBC 4.20 (4.1-5.6) M/mm3 Hgb 11.7 L (12.5-18.0) gm/dl Hct 36.5 L (42-50) % MCV 86.9 (78-100) fl MCH 27.9 (26-32) pg MCHC 32.1 (32-36) g/dl RDW 15.0 H (11.5-14.0) % Plt Count 268 (150-450) K/mm3 MPV 9.4 (7.5-11.0) fl Gran % 69.3 H (36.0-66.0) % Eos # (Auto) 1.08 H (0-0.5) Absolute Lymphs (auto) 0.93 L (1.0-4.6) Absolute Monos (auto) 0.98 (0.0-1.3) Lymphocytes % 9.5 L (24.0-44.0) % Monocytes % 10.0 (0.0-12.0) % Eosinophils % 11.0 H (0.00-5.0) % Basophils % 0.2 (0.0-0.4) % Absolute Granulocytes 6.78 (1.4-6.9) Basophils # 0.02 (0-0.4) Sodium 133 L (137-145) mmol/L Potassium 4.1 (3.5-5.1) mmol/L Chloride 102 (98-107) mmol/L Carbon Dioxide 20 L (22-30) mmol/L Anion Gap 14.8 (5-15) MEQ/L BUN 16 (9-20) mg/dL Creatinine 1.22 (0.66-1.25) mg/dL Estimated GFR > 60.0 ML/MIN Glucose 110 H (74-106) mg/dL Calcium 9.1 (8.4-10.2) mg/dL Total Bilirubin 0.30 (0.2-1.3) mg/dL AST 28 (17-59) U/L ALT 19 (0-50) U/L Alkaline Phosphatase 67 (38-126) U/L Serum Total Protein 7.7 (6.3-8.2) g/dL Albumin 4.3 (3.5-5.0) g/dL Amylase 69 (30-110) U/L Lipase 76 (23-300) U/L Urine Color STRAW (YELLOW) Urine Appearance CLEAR (CLEAR) Urine pH 7.0 (5-6) Ur Specific [place] 1.003 (1.005-1.025) Urine Protein NEGATIVE (Negative) Urine Ketones NEGATIVE (NEGATIVE) Urine Blood NEGATIVE (0-5) Pravin/ul Urine Nitrite NEGATIVE (NEGATIVE) Urine Bilirubin NEGATIVE (NEGATIVE) Urine Urobilinogen NEGATIVE (0-1) mg/dL Ur Leukocyte Esterase NEGATIVE (NEGATIVE) Urine WBC (Auto) NONE (0-5) /HPF Urine RBC (Auto) NONE (0-2) /HPF U Epithel Cells (Auto) NONE (FEW) /HPF Urine Bacteria (Auto) NONE (NEGATIVE) /HPF Urine Mucus (Auto) SLIGHT (NEGATIVE) /HPF Urine Culture Reflexed NO (NO) Urine Glucose NEGATIVE (NEGATIVE) mg/dL - Progress Progress: unchanged Counseled pt/family regarding: diagnosis, need for follow-up, rad results - Departure Departure Disposition: Observation Clinical Impression: Infestation by bed bug Abdominal pain Qualifiers: Abdominal location: right lower quadrant Qualified Code(s): R10.31 - Right lower quadrant pain Condition: Fair Critical Care Time: Yes Critical Care Time(excluding separately billable procedures): Critical 30-74 mins Referrals: GARY LOMBARDI MD [Primary Care Provider] -
[2020-04-21] MEDS ORDERED: Sodium Chloride 0.9% 1000 ML 1,000 ML ONE (13:42)
[2020-04-21] MEDS ORDERED: Sodium Chloride 0.9% 1000 ML 1,000 ML IV SCH (13:45)
[2020-04-21 14:03] LABS: Absolute Neutrophil Ct (ANC) 6.78 (1.4-6.9); BASOPHIL % 0.2 % (0.0-0.4); Basophil (Absolute #) 0.02 (0-0.4); Eosinophil (Absolute #) 1.08 (0-0.5); Hematocrit 36.5 % (42-50); Hemoglobin 11.7 gm/dl (12.5-18.0); Lymphocyte (Absolute #) 0.93 (1.0-4.6); Lymphocytes % 9.5 % (24.0-44.0); Mean Cell Volume 86.9 fl (78-100); Mean Corpuscular Hemoglobin 27.9 pg (26-32); Mean Corpuscular Hgb Concent. 32.1 g/dl (32-36); Mean Platelet Volume 9.4 fl (7.5-11.0); Monocyte (Absolute #) 0.98 (0.0-1.3); Neutrophil % 69.3 % (36.0-66.0); Platelet Count 268 K/mm3 (150-450); White Blood Count 9.8 K/mm3 (4.0-10.5)
[2020-04-21 14:11] LABS: Appearance CLEAR (CLEAR); Bilirubin NEGATIVE (NEGATIVE); Blood NEGATIVE Ery/ul (0-5); Glucose NEGATIVE (NEGATIVE); Ketones NEGATIVE (NEGATIVE); Leukocyte Esterase NEGATIVE (NEGATIVE); Mucus SLIGHT /HPF (NEGATIVE); Nitrite NEGATIVE (NEGATIVE); Protein,Urine Dip NEGATIVE (Negative); Specific Gravity 1.003 (1.005-1.025); Urobilinogen NEGATIVE mg/dL (0-1)
[2020-04-21 14:25] LABS: ALBUMIN 4.3 g/dL (3.5-5.0); ALKALINE PHOSPHATASE 67 U/L (38-126); AMYLASE 69 U/L (30-110); ANION GAP 14.8 MEQ/L (5-15); BLOOD UREA NITROGEN 16 mg/dL (9-20); CHLORIDE 102 mmol/L (98-107); Calcium 9.1 mg/dL (8.4-10.2); Carbon Dioxide 20 mmol/L (22-30); Creatinine 1 1.22 mg/dL (0.66-1.25); Glucose 110 mg/dL (74-106); LIPASE 76 U/L (23-300); Potassium 4.1 mmol/L (3.5-5.1); SGOT/AST 28 U/L (17-59); SGPT/ALT 19 U/L (0-50); SODIUM 133 mmol/L (137-145); Total Protein 7.7 g/dL (6.3-8.2)
[2020-04-21] MEDS ORDERED: Zofran 4 MG/2 ML VIAL IV PRN (15:42)
[2020-04-21] MEDS ORDERED: VENTOLIN COMMON CANISTER IH PRN (16:22)
[2020-04-21] MEDS ORDERED: Klonopin 0.5 MG PO PRN (18:23)
[2020-04-21] MEDS: Sodium Chloride 0.9% 1000 ML 1,000 ML IV SCH (18:52)
[2020-04-21] MEDS ORDERED: Advair Hfa 115/21 Common canister IH SCH (19:00)
--- NOTE | 2020-04-21 20:04 | XRAY ---
Indication: Abdomen pain following eating. Multiple contiguous axial images obtained through the abdomen and pelvis without contrast as ordered. Comparison: None Study degraded by mild respiration artifact throughout. Lung bases grossly clear. Heart is not enlarged. Small hiatal hernia. Noncontrasted stomach and bowel loops appear nonobstructed. Query small descending duodenal diverticulum. Appendix not seen. Radiopacity throughout the colon presumed ingested barium or bismuth. Mild diffuse scattered colonic fecal debris throughout. No free fluid/air. Remaining liver, gallbladder, pancreas, spleen, adrenal glands, kidneys, ureters, and bladder appear unremarkable for noncontrast exam. Mild aortoiliac calcifications without AAA. Osseous structures intact with minimal degenerative changes throughout the spine. Impression: 1. Respiration artifact. 2. Mild diffuse fecal stasis, small duodenal diverticulum, and small hiatal hernia. 3. Remaining CT abdomen/pelvis without contrast exam is negative. Comment: Preliminary interpretation was made by [facility]. No critical discrepancy.
[2020-04-21] MEDS: Pepcid 20 MG VIAL IV SCH (21:05)
[2020-04-21] MEDS ORDERED: Klonopin 0.5 MG PO SCH (22:00)
[2020-04-21] MEDS ORDERED: Seroquel 100 MG PO SCH ×2 (22:00)
[2020-04-21] MEDS ORDERED: NORVASC 5 MG PO SCH (22:00)
[2020-04-22] MEDS ORDERED: DUONEB 0.5-3 MG/3 ml Neb IH PRN (00:57)
[2020-04-22] MEDS: Sodium Chloride 0.9% 1000 ML 1,000 ML IV SCH (03:53)
[2020-04-22] MEDS ORDERED: ADVAIR 250-50 DISKUS 14 DOSE IH SCH (07:00)
[2020-04-22] MEDS ORDERED: PROVENTIL 2.5 MG/3 ML NEB IH SCH (07:00)
[2020-04-22] MEDS ORDERED: Klonopin 0.5 MG PO PRN (07:01)
[2020-04-22] MEDS ORDERED: Toprol Xl 100 MG PO SCH (10:00)
[2020-04-22] MEDS ORDERED: NON-FORMULARY ITEM (Lisinopril/Hydrochlorothiazide [Lisinopril-Hctz 20-12.5 Mg Tab] 1 EACH PO SCH (10:00)
[2020-04-22] MEDS ORDERED: Zestril 20 MG PO SCH (10:00)
[2020-04-22] MEDS ORDERED: Protonix 40MG Tablet PO SCH (10:00)
[2020-04-22] MEDS ORDERED: hydroDIURIL 25 MG PO SCH (10:00)
[2020-04-22] MEDS ORDERED: Toprol Xl 50 MG PO SCH (10:00)
[2020-04-22] MEDS: Pepcid 20 MG VIAL IV SCH (10:25)
[2020-04-22 15:03] VITALS: BP 127/58; PULSE 86; O2SAT 97
--- NOTE | 2020-04-24 12:32 | PCM.SSS ---
History of Present Illness - Chief Complaint Chief Complaint: abdominal pain, bed bug infestation History of Present Illness: is a 65 year old male.pt to ED c/o RLQ pain after meals x about a week. states pain is 8/10 after meals and goes away within a couple hours. 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 denies NVD. no COVID sx. Patient is heavily infested with lice and bed bugs Timing/Duration: week(s) Quality: cramping Abdominal Pain Onset Location: RLQ Pain Radiation: no radiation Severity of Pain-Max: mild Severity of Pain-Current: none Modifying Factors: Improves With: nothing Associated Symptoms: denies symptoms - Review of Systems Constitutional: No Fever, No Chills Eyes: No Symptoms Ears, Nose, & Throat: No Symptoms Respiratory: No Cough, No Short Of Breath Cardiac: No Chest Pain, No Edema, No Syncope Abdominal/Gastrointestinal: Abdominal Pain, No Nausea, No Vomiting, No Diarrhea Genitourinary Symptoms: No Dysuria Musculoskeletal: No Back Pain, No Neck Pain Skin: No Rash Neurological: No Dizziness, No Focal Weakness, No Sensory Changes Psychological: No Symptoms Endocrine: No Symptoms Hematologic/Lymphatic: No Symptoms Immunological/Allergic: No Symptoms Medications & Allergies Home Medications: Home Medication List Clonazepam [Klonopin] 1 mg PO TID PRN 11/10/16 [History Confirmed 04/21/20] Metoprolol Succinate 50 mg [Toprol Xl 50 MG] 100 mg PO DAILY 11/10/16 [History Confirmed 04/21/20] Quetiapine Fumarate 100 mg [Seroquel 100 MG] 150 mg PO HS 11/10/16 [History Confirmed 04/21/20] Amlodipine Besylate 10 mg [Norvasc 10 MG] 10 mg PO HS 04/17/18 [History Confirmed 04/21/20] Lisinopril/Hydrochlorothiazide [Lisinopril-Hctz 20-12.5 mg Tab] 1 each PO DAILY 04/17/18 [History Confirmed 04/21/20] Budesonide/Formoterol Fumarate [Budesonide-Formoterol 160-4.5] 2 puffs IH BID 01/14/20 [History Confirmed 04/21/20] PANTOPRAZOLE 40 mg Tablet [Protonix 40MG Tablet] 40 mg PO DAILY 04/21/20 [History Confirmed 04/21/20] Allergies/Adverse Reactions: Allergies Allergy/AdvReac Type Severity Reaction Status Date / Time No Known Drug Allergies Allergy Verified 01/13/20 18:47 - Past Medical History Past Medical History: Yes Neurological History: Other ENT History: No Pertinent History Cardiac History: Hypertension Respiratory History: No Pertinent History Endocrine Medical History: No Pertinent History Musculoskelatal History: No Pertinent History GI Medical History: GERD History: No Pertinent History Pyscho-Social History: Anxiety Male Reproductive Disorders: No Pertinent History Comment: CP, 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 - Past Surgical History Past Surgical History: Yes Neuro Surgical History: No Pertinent History Cardiac History: No Pertinent History Respiratory Surgery: No Pertinent History GI Surgical History: No Pertinent History Genitourinary Surgical Hx: No Pertinent History Musculskeletal Surgical Hx: No Pertinent History Male Surgical History: No Pertinent History Other Surgical History: SKIN CA REMOVED - Social History Smoking Status: Former smoker How long have you smoked: 35 Exposure to second hand smoke: No Alcohol: None Drug Use: none Significant Family History: no pertinent family hx - Physical Exam General Appearance: no apparent distress, alert 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, oriented x 3, cooperative, normal mood/affect, nml cerebellar function, nml station & gait, sensation nml, No motor deficits Eye Exam: PERRL/EOMI, eyes nml inspection Ears, Nose, Throat Exam: normal ENT inspection, TMs normal, pharynx normal, moist mucous membranes Neck Exam: normal inspection, non-tender, supple, full range of motion Respiratory Exam: normal breath sounds, lungs clear, No respiratory distress Cardiovascular Exam: regular rate/rhythm, normal heart sounds, normal peripheral pulses Gastrointestinal/Abdomen Exam: soft, normal bowel sounds, No tenderness, No mass Back Exam: normal inspection, normal range of motion, No CVA tenderness, No vertebral tenderness Extremity Exam: normal inspection, normal range of motion, pelvis stable Skin Exam: normal color, warm, dry, No rash Lymphatic Exam: No adenopathy Assessment/Plan (1) Abdominal pain Status: Acute Qualifiers: Abdominal location: right lower quadrant Qualified Code(s): R10.31 - Right lower quadrant pain Code(s): R10.9 - UNSPECIFIED ABDOMINAL PAIN (2) Infestation by bed bug Status: Acute Code(s): B88.8 - OTHER SPECIFIED INFESTATIONS (3) Paranoid schizophrenia in remission Status: Acute Code(s): F20.0 - PARANOID SCHIZOPHRENIA Hospital Summary - Hospital Course Hospital Course: Chief Complaint Diagnosis abdominal pain, bed bug infestation Allergies Allergy/AdvReac Type Severity Reaction Status Date / Time No Known Drug Allergies Allergy Verified 01/13/20 18:47 Home Medications Medication Instructions Recorded Confirmed Last Taken Type PANTOPRAZOLE 40 mg Tablet 40 mg PO DAILY 04/21/20 04/21/20 04/20/20 History [Protonix 40MG Tablet] Current Medications Discontinued Medications Generic Name Dose Route Start Last Admin Trade Name Freq PRN Reason Stop Dose Admin Albuterol Sulfate 2 puff 04/21/20 16:22 Ventolin Common Canister IH 05/21/20 16:21 Q4H PRN PRN SHORTNESS OF BREATH/WHEEZING Albuterol Sulfate 2.5 mg 04/22/20 07:00 Proventil 2.5 Mg/3 Ml Neb IH 05/22/20 06:59 Q4HRT [place] Albuterol/Ipratropium 3 ml 04/22/20 00:57 Duoneb 0.5-3 Mg/3 Ml Neb IH 05/22/20 00:56 Q4HPRN PRN SHORTNESS OF BREATH/WHEEZING Amlodipine Besylate 10 mg 04/21/20 22:00 04/21/20 21:05 Norvasc 5 Mg PO 05/21/20 21:59 10 mg HS [place] Administration Clonazepam 1 mg 04/21/20 22:00 Klonopin 0.5 Mg PO 05/21/20 21:59 BID [facility] Clonazepam 1 mg 04/21/20 18:23 04/21/20 21:04 Klonopin 0.5 Mg PO 05/21/20 21:59 1 mg TID PRN Administration ANXIETY Clonazepam 1 mg 04/22/20 07:01 Klonopin 0.5 Mg PO 05/22/20 07:00 TID PRN PRN ANXIETY Famotidine 20 mg 04/21/20 22:00 04/22/20 10:25 Pepcid 20 Mg Vial IV 05/21/20 21:59 20 mg Q12HT [place] Administration Hydrochlorothiazide 12.5 mg 04/22/20 10:00 04/22/20 10:26 Hydrodiuril 25 Mg PO 05/22/20 09:59 12.5 mg DAILY [place] Administration Sodium Chloride 1,000 mls @ 50 mls/hr 04/21/20 13:45 04/21/20 13:43 Sodium Chloride 0.9% 1000 Ml IV 05/21/20 13:44 50 mls/hr .Q20H [place] Administration Sodium Chloride Confirm 04/21/20 13:42 Sodium Chloride 0.9% 1000 Ml Administered 04/21/20 13:43 Dose 1,000 mls @ ud .ROUTE .STK-MED ONE Sodium Chloride 1,000 mls @ 100 mls/hr 04/21/20 15:42 04/22/20 03:53 Sodium Chloride 0.9% 1000 Ml IV 05/21/20 15:41 100 mls/hr .Q10H [place] Administration Lisinopril 20 mg 04/22/20 10:00 04/22/20 10:25 Zestril 20 Mg PO 05/22/20 09:59 20 mg DAILY [place] Administration Metoprolol Succinate 100 mg 04/22/20 10:00 04/22/20 10:25 Toprol Xl 100 Mg PO 05/22/20 09:59 100 mg DAILY [place] Administration Ondansetron HCl 4 mg 04/21/20 15:42 Zofran 4 Mg/2 Ml Vial IV 05/21/20 15:41 Q6H PRN PRN NAUSEA/VOMITING Pantoprazole Sodium 40 mg 04/22/20 10:00 04/22/20 10:27 Protonix 40mg Tablet PO 05/22/20 09:59 40 mg DAILY [place] Administration Quetiapine Fumarate 100 mg 04/21/20 22:00 Seroquel 100 Mg PO 05/21/20 21:59 HS [facility] Quetiapine Fumarate 150 mg 04/21/20 22:00 04/21/20 21:05 Seroquel 100 Mg PO 05/21/20 21:59 150 mg HS [facility] Administration Fluticasone/Salmeterol 2 puff 04/21/20 19:00 04/21/20 19:33 Advair Hfa 115/21 Common Canister* 05/21/20 18:59 2 puff BIDRT [place] Administration Fluticasone/Salmeterol 1 each 04/22/20 07:00 04/22/20 06:50 Advair 250-50 Diskus 14 Dose 05/22/20 06:59 1 each BIDRT [place] Administration Intake & Output (Last 24 hours) 04/22/20 04/23/20 04/24/20 04/25/20 11:59 11:59 11:59 11:59 Intake Total 2661 Output Total 3650 Balance -989 Weight 63.3 kg - Vitals & Intake/Output Vital Signs: Vital Signs Temperature 96.5 F 04/22/20 12:00 Pulse Rate 86 04/22/20 12:00 Respiratory Rate 20 04/22/20 12:00 Blood Pressure 127/58 04/22/20 12:00 O2 Sat by Pulse Oximetry 97 04/22/20 12:00 Intake & Output: Intake & Output 04/22/20 04/23/20 04/24/20 04/25/20 11:59 11:59 11:59 11:59 Intake Total 2661 Output Total 3650 Balance -989 Weight 63.3 kg - Lab Result Diagrams: 04/21/20 14:01 04/21/20 14:01 - Procedures and Test Procedures and Tests throughout Hospitalization: Therapy Orders & Screens 04/21/20 16:11 Respiratory Therapy Assessment DAILY Comment: Diagnosis: abdominal pain, bed bug infestation 04/22/20 07:00 Respiratory MDI BID Comment: Diagnosis: abdominal pain, bed bug infestation - Discharge Discharge Date: 04/22/20 Disposition: Home, Self-Care Condition: Stable Prescriptions: No Action Quetiapine Fumarate 100 mg [Seroquel 100 MG] 150 mg PO HS Metoprolol Succinate 50 mg [Toprol Xl 50 MG] 100 mg PO DAILY Clonazepam [Klonopin] 1 mg PO TID PRN PRN Reason: Anxiety Amlodipine Besylate 10 mg [Norvasc 10 MG] 10 mg PO HS Lisinopril/Hydrochlorothiazide [Lisinopril-Hctz 20-12.5 mg Tab] 1 each PO DAILY Budesonide/Formoterol Fumarate [Budesonide-Formoterol 160-4.5] 2 puffs IH BID PANTOPRAZOLE 40 mg Tablet [Protonix 40MG Tablet] 40 mg PO DAILY Instructions: Acute Abdomen (Belly Pain), Adult (DC) Additional Instructions: DR LOMBARDI APPOINTMENT [place]. Follow up with: GARY LOMBARDI MD [Primary Care Provider] - 04/30/20 10:45 am Forms: Discharge Instructions
== END 2020-04-22 14:07 | disposition home or self-care (01) ==
LOC: ED 12:38 → MED SURG 15:36
PROVIDERS: ADMIT Family Medicine; ATTEND General Practice
DX: R10.31 Right lower quadrant pain (principal); I10 Essential (primary) hypertension; B85.2 Pediculosis, unspecified; B88.8 Other specified infestations; F20.0 Paranoid schizophrenia; Z79.899 Other long term (current) drug therapy
CPT/HCPCS: 74176; 80053; 81001; 82150; 83690; 85025; 94640; 94760; 96360; 99291; G0378; 36000; 36415; 99285; A9270-GY

== ENCOUNTER 2020-10-31 10:02 | Observation (INO) | payer OTHER ==
--- NOTE | 2020-10-31 10:14 | ERPHSYRPT ---
- History of Present Illness Time Seen by Provider: 10/31/20 10:15 Source: patient Exam Limitations: no limitations Physician History: Patient is a 65-year-old male presents to our ED via EMS for evaluation of shortness of breath. Patient [place] transiently short of breath. Upon EMS evaluation patient was found to be tachycardic. Patient denied pain. No chest pain or shortness of breath. No coughs no nausea vomiting or diaphoresis. No diarrhea. No rash. Patient brought to our ED for an evaluation. Upon initial evaluation patient was found to be tachycardic. Systolic blood pressure in the mid 90s. Temperature was slightly elevated at 99 range. Septic work-up initiated. Patient denies any complaints at this time. Timing/Duration: today Severity: moderate Modifying Factors: Improves With: movement, rest Associated Symptoms: denies symptoms Allergies/Adverse Reactions: No Known Drug Allergies Allergy (Verified 01/13/20 18:47) Home Medications: Clonazepam [Klonopin] 1 mg PO TID PRN 11/10/16 [History] Metoprolol Succinate 50 mg [Toprol Xl 50 MG] 100 mg PO DAILY 11/10/16 [History] Quetiapine Fumarate 100 mg [Seroquel 100 MG] 150 mg PO HS 11/10/16 [History] Amlodipine Besylate 10 mg [Norvasc 10 MG] 10 mg PO HS 04/17/18 [History] Lisinopril/Hydrochlorothiazide [Lisinopril-Hctz 20-12.5 mg Tab] 1 each PO DAILY 04/17/18 [History] Budesonide/Formoterol Fumarate [Budesonide-Formoterol 160-4.5] 2 puffs IH BID 01/14/20 [History] PANTOPRAZOLE 40 mg Tablet [Protonix 40MG Tablet] 40 mg PO DAILY 04/21/20 [History] Hx Tetanus, Diphtheria Vaccination/Date Given: Yes Hx Influenza Vaccination/Date Given: No Hx Pneumococcal Vaccination/Date Given: No - Review of Systems Constitutional: No Symptoms, No Fever, No Chills Eyes: No Symptoms Ears, Nose, & Throat: No Symptoms Respiratory: No Symptoms, No Cough, No Dyspnea Cardiac: No Chest Pain, No Edema, No Syncope Abdominal/Gastrointestinal: No Symptoms, No Abdominal Pain, No Nausea, No Vomiting, No Diarrhea Genitourinary Symptoms: No Symptoms, No Dysuria Musculoskeletal: No Symptoms, No Back Pain, No Neck Pain Skin: No Symptoms, No Rash Neurological: No Symptoms, No Dizziness, No Focal Weakness, No Sensory Changes Psychological: No Symptoms Endocrine: No Symptoms Hematologic/Lymphatic: No Symptoms Immunological/Allergic: No Symptoms All Other Systems: Reviewed and Negative - Past Medical History Pertinent Past Medical History: Yes Neurological History: Other ENT History: No Pertinent History Cardiac History: Hypertension Respiratory History: No Pertinent History Endocrine Medical History: No Pertinent History Musculoskeletal History: No Pertinent History GI Medical History: GERD History: No Pertinent History Psycho-Social History: Anxiety Male Reproductive Disorders: No Pertinent History Other Medical History: CP, 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 - Past Surgical History Past Surgical History: Yes Neuro Surgical History: No Pertinent History Cardiac: No Pertinent History Respiratory: No Pertinent History Gastrointestinal: No Pertinent History Genitourinary: No Pertinent History Musculoskeletal: No Pertinent History Male Surgical History: No Pertinent History Other Surgical History: SKIN CA REMOVED - Social History Smoking Status: Former smoker How long have you smoked: 35 Exposure to second hand smoke: No Alcohol Use: None Drug Use: none Patient Lives Alone: No Significant Family History: no pertinent family hx - Nursing Vital Signs Nursing Vital Signs: Initial Vital Signs Temperature 99.3 F 10/31/20 10:13 Pulse Rate 138 H 10/31/20 10:13 Respiratory Rate 15 10/31/20 10:13 Blood Pressure 95/59 10/31/20 10:13 O2 Sat by Pulse Oximetry 97 10/31/20 10:13 Pain Scale Pain Intensity 0 - Physical Exam General Appearance: no apparent distress, alert, other (Patient had urinary incontinence. Close were removed. Patient was cleaned by staff.) Eye Exam: PERRL/EOMI, eyes nml inspection Ears, Nose, Throat Exam: normal ENT inspection, TMs normal, pharynx normal, moist mucous membranes Neck Exam: normal inspection, non-tender, supple, full range of motion Respiratory Exam: normal breath sounds, lungs clear, No respiratory distress Cardiovascular Exam: regular rate/rhythm, normal heart sounds, normal peripheral pulses, other (Sinus tachycardia) Gastrointestinal/Abdomen Exam: soft, normal bowel sounds, No tenderness, No mass Male Genitalia Exam: normal genitalia Back Exam: normal inspection, normal range of motion, No CVA tenderness, No vertebral tenderness Extremity Exam: normal inspection, normal range of motion, pelvis stable 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, oriented x 3, cooperative, normal mood/affect, nml cerebellar function, No motor deficits Skin Exam: normal color, warm, dry, No rash Lymphatic Exam: No adenopathy SpO2 Interpretation: normal SpO2: 97 O2 Delivery: Room Air - Course Nursing assessment & vital signs reviewed: Yes EKG Interpreted by Me: RATE ([id number]), Sinus Rhythm, NORMAL AXIS, NORMAL INTERVALS - Radiology Exams Chest X-ray Interpretation: Teleradiologist Report (No acute cardiopulmonary disease evident. Chronic biapical pleural thickening and evidence of old healed granulomatous disease. Findings are unchanged from 01/13/2020.) - CT Exams Chest CT Interpretation: Tele-radiologist Report (Questionable tiny filling defect versus artifact within the posterior left lung base within the distal left descending pulmonary branches possible pulmonary embolism. Retrocardiac hiatal hernia. Granulomatous disease. No airspace infiltrates or acute cardiopulmonary disease) Ordered Tests: Active Orders 24 hr Category Date Time Status Senior Executive Assistant STAT Care 10/31/20 10:08 Active EKG-ER Only STAT Care 10/31/20 10:07 Active IV Insertion STAT Care 10/31/20 10:07 Active Pulse Oximetry (ED) STAT Care 10/31/20 10:07 Active CHEST 1 VIEW (PORTABLE) Stat Exams 10/31/20 10:08 Completed CHEST WITH CONTRAST [CT] Stat Exams 10/31/20 11:09 Completed BLOOD CULTURE Stat Lab 10/31/20 10:40 Received CBC W DIFF Stat Lab 10/31/20 10:30 Completed CMP Stat Lab 10/31/20 10:30 Completed D-DIMER QUANTITATIVE Stat Lab 10/31/20 10:07 Completed ETHYL ALCOHOL Stat Lab 10/31/20 10:30 Completed Lactic Acid Stat Lab 10/31/20 10:20 Completed Lactic Acid Stat Lab 10/31/20 12:25 Completed MAGNESIUM Stat Lab 10/31/20 10:30 Completed Manual Differential NC Stat Lab 10/31/20 10:30 Completed NT PRO BNP Stat Lab 10/31/20 10:30 Completed TROPONIN Q3H Lab 10/31/20 10:30 Completed TROPONIN Q3H Lab 10/31/20 13:20 Received TROPONIN Q3H Lab 10/31/20 16:15 Ordered TROPONIN Q3H Lab 10/31/20 19:15 Ordered TROPONIN Q3H Lab 10/31/20 22:15 Ordered TSH [TSH, 3RD Generation] Stat Lab 10/31/20 10:30 Completed UA W/RFX UR CULTURE Stat Lab 10/31/20 10:23 Completed Urine Triage Profile Stat Lab 10/31/20 10:23 Completed Transfer Order Routine Transfer 10/31/20 Ordered Medication Summary Generic Name Dose Route Start Last Admin Trade Name Freq PRN Reason Stop Dose Admin Sodium Chloride 1,000 mls @ 100 mls/hr 10/31/20 10:15 10/31/20 12:26 Sodium Chloride 0.9% 1000 Ml IV 11/30/20 10:14 Infused .Q10H [place] Infusion Discontinued Medications Generic Name Dose Route Start Last Admin Trade Name Freq PRN Reason Stop Dose Admin Enoxaparin Sodium 60 mg 10/31/20 13:28 10/31/20 13:30 Enoxaparin Sodium SQ 10/31/20 13:29 60 mg STAT ONE Administration Enoxaparin Sodium Confirm 10/31/20 13:29 Enoxaparin Sodium Administered 10/31/20 13:30 Dose 80 mg SQ .STK-MED ONE Piperacillin Sod/Tazobactam 100 mls @ 200 mls/hr 10/31/20 10:28 10/31/20 10:37 Sod 3.375 gm/ Sodium Chloride IV 10/31/20 10:57 200 mls/hr STAT ONE Administration Vancomycin HCl 2 gm in 400 mls @ 133.333 mls/hr 10/31/20 10:29 10/31/20 11:23 Vancomycin 2 Gram/400 Ml Bag IV 10/31/20 13:28 133.333 mls/hr STAT ONE 133.33 mls/hr Administration Sodium Chloride Confirm 10/31/20 10:36 Sodium Chloride 100ml Mini-Bag Plus Administered 10/31/20 10:37 Dose 100 mls @ ud IV .STK-MED ONE Vancomycin HCl Confirm 10/31/20 11:07 Vancomycin 2 Gram/400 Ml Bag Administered 10/31/20 11:08 Dose 2 gm in 400 mls @ ud IV .STK-MED ONE Sodium Chloride 1,000 mls @ 999 mls/hr 10/31/20 11:17 10/31/20 12:21 Sodium Chloride 0.9% 1000 Ml IV 10/31/20 12:17 Infused .Q1H1M STA Infusion Piperacillin Sod/Tazobactam Sod Confirm 10/31/20 10:34 Zosyn 3.375 Gm Vial Administered 10/31/20 10:35 Dose 3.375 gm IV .STK-MED ONE Lab/Rad Data: Laboratory Result Diagrams 10/31/20 10:30 10/31/20 10:30 Laboratory Results 10/31/20 10/31/20 10/31/20 Range/Units 12:25 10:40 10:30 WBC 16.9 H (4.0-10.5) K/mm3 RBC 3.70 L (4.1-5.6) M/mm3 Hgb 10.7 L (12.5-18.0) gm/dl Hct 34.1 L (42-50) % MCV 92.2 (78-100) fl MCH 28.9 (26-32) pg MCHC 31.4 L (32-36) g/dl RDW 14.8 H (11.5-14.0) % Plt Count 259 (150-450) K/mm3 MPV 9.6 (7.5-11.0) fl D-Dimer (215-500) ng/mL Sodium (137-145) mmol/L Potassium (3.5-5.1) mmol/L Chloride (98-107) mmol/L Carbon Dioxide (22-30) mmol/L Anion Gap (5-15) MEQ/L BUN (9-20) mg/dL Creatinine (0.66-1.25) mg/dL Estimated GFR ML/MIN Glucose (74-106) mg/dL Lactic Acid 0.8 (0.4-2.0) Calcium (8.4-10.2) mg/dL Magnesium (1.6-2.3) mg/dL Total Bilirubin (0.2-1.3) mg/dL AST (17-59) U/L ALT (0-50) U/L Alkaline Phosphatase (38-126) U/L Troponin I (0.000-0.034) ng/mL NT-Pro-B Natriuret Pep (0-900) pg/mL Serum Total Protein (6.3-8.2) g/dL Albumin (3.5-5.0) g/dL TSH 3rd Generation (0.47-4.68) mIU/L Urine Color (YELLOW) Urine Appearance (CLEAR) Urine pH (5-6) Ur Specific [place] (1.005-1.025) Urine Protein (Negative) Urine Ketones (NEGATIVE) Urine Blood (0-5) Pravin/ul Urine Nitrite (NEGATIVE) Urine Bilirubin (NEGATIVE) Urine Urobilinogen (0-1) mg/dL Ur Leukocyte Esterase (NEGATIVE) Urine WBC (Auto) (0-5) /HPF Urine RBC (Auto) (0-2) /HPF U Epithel Cells (Auto) (FEW) /HPF Urine Bacteria (Auto) (NEGATIVE) /HPF Urine Culture Reflexed (NO) Urine Glucose (NEGATIVE) mg/dL Urine Opiates Level (NEGATIVE) Ur Methadone (NEGATIVE) Urine Barbiturates (NEGATIVE) Ur Phencyclidine (PCP) (NEGATIVE) Urine Amphetamine (NEGATIVE) U Benzodiazepine Level (NEGATIVE) Urine Cocaine (NEGATIVE) Urine Marijuana (THC) (NEGATIVE) Ethyl Alcohol (0-10) mg/dL Influenza Type A Ag NEGATIVE (NEGATIVE) Influenza Type B Ag NEGATIVE (NEGATIVE) RSV (PCR) NEGATIVE (Negative) SARS-CoV-2 (PCR) NEGATIVE (NEGATIVE) 10/31/20 10/31/20 10/31/20 Range/Units 10:30 10:30 10:30 WBC (4.0-10.5) K/mm3 RBC (4.1-5.6) M/mm3 Hgb (12.5-18.0) gm/dl Hct (42-50) % MCV (78-100) fl MCH (26-32) pg MCHC (32-36) g/dl RDW (11.5-14.0) % Plt Count (150-450) K/mm3 MPV (7.5-11.0) fl D-Dimer (215-500) ng/mL Sodium 136 L (137-145) mmol/L Potassium 4.0 (3.5-5.1) mmol/L Chloride 101 (98-107) mmol/L Carbon Dioxide 17 L (22-30) mmol/L Anion Gap 22.2 H (5-15) MEQ/L BUN 20 (9-20) mg/dL Creatinine 1.28 H (0.66-1.25) mg/dL Estimated GFR 59.6 ML/MIN Glucose 197 H (74-106) mg/dL Lactic Acid (0.4-2.0) Calcium 9.7 (8.4-10.2) mg/dL Magnesium 2.2 (1.6-2.3) mg/dL Total Bilirubin 0.20 (0.2-1.3) mg/dL AST 30 (17-59) U/L ALT 27 (0-50) U/L Alkaline Phosphatase 66 (38-126) U/L Troponin I < 0.012 (0.000-0.034) ng/mL NT-Pro-B Natriuret Pep 56.3 (0-900) pg/mL Serum Total Protein 7.0 (6.3-8.2) g/dL Albumin 4.2 (3.5-5.0) g/dL TSH 3rd Generation 1.330 (0.47-4.68) mIU/L Urine Color (YELLOW) Urine Appearance (CLEAR) Urine pH (5-6) Ur Specific [place] (1.005-1.025) Urine Protein (Negative) Urine Ketones (NEGATIVE) Urine Blood (0-5) Prvain/ul Urine Nitrite (NEGATIVE) Urine Bilirubin (NEGATIVE) Urine Urobilinogen (0-1) mg/dL Ur Leukocyte Esterase (NEGATIVE) Urine WBC (Auto) (0-5) /HPF Urine RBC (Auto) (0-2) /HPF U Epithel Cells (Auto) (FEW) /HPF Urine Bacteria (Auto) (NEGATIVE) /HPF Urine Culture Reflexed (NO) Urine Glucose (NEGATIVE) mg/dL Urine Opiates Level (NEGATIVE) Ur Methadone (NEGATIVE) Urine Barbiturates (NEGATIVE) Ur Phencyclidine (PCP) (NEGATIVE) Urine Amphetamine (NEGATIVE) U Benzodiazepine Level (NEGATIVE) Urine Cocaine (NEGATIVE) Urine Marijuana (THC) (NEGATIVE) Ethyl Alcohol < 10 (0-10) mg/dL Influenza Type A Ag (NEGATIVE) Influenza Type B Ag (NEGATIVE) RSV (PCR) (Negative) SARS-CoV-2 (PCR) (NEGATIVE) 10/31/20 10/31/20 10/31/20 Range/Units 10:23 10:23 10:20 WBC (4.0-10.5) K/mm3 RBC (4.1-5.6) M/mm3 Hgb (12.5-18.0) gm/dl Hct (42-50) % MCV (78-100) fl MCH (26-32) pg MCHC (32-36) g/dl RDW (11.5-14.0) % Plt Count (150-450) K/mm3 MPV (7.5-11.0) fl D-Dimer (215-500) ng/mL Sodium (137-145) mmol/L Potassium (3.5-5.1) mmol/L Chloride (98-107) mmol/L Carbon Dioxide (22-30) mmol/L Anion Gap (5-15) MEQ/L BUN (9-20) mg/dL Creatinine (0.66-1.25) mg/dL Estimated GFR ML/MIN Glucose (74-106) mg/dL Lactic Acid 8.2 H (0.4-2.0) Calcium (8.4-10.2) mg/dL Magnesium (1.6-2.3) mg/dL Total Bilirubin (0.2-1.3) mg/dL AST (17-59) U/L ALT (0-50) U/L Alkaline Phosphatase (38-126) U/L Troponin I (0.000-0.034) ng/mL NT-Pro-B Natriuret Pep (0-900) pg/mL Serum Total Protein (6.3-8.2) g/dL Albumin (3.5-5.0) g/dL TSH 3rd Generation (0.47-4.68) mIU/L Urine Color STRAW (YELLOW) Urine Appearance CLEAR (CLEAR) Urine pH 7.0 (5-6) Ur Specific [place] 1.005 (1.005-1.025) Urine Protein NEGATIVE (Negative) Urine Ketones NEGATIVE (NEGATIVE) Urine Blood SMALL (0-5) Pravin/ul Urine Nitrite NEGATIVE (NEGATIVE) Urine Bilirubin NEGATIVE (NEGATIVE) Urine Urobilinogen NEGATIVE (0-1) mg/dL Ur Leukocyte Esterase NEGATIVE (NEGATIVE) Urine WBC (Auto) NONE (0-5) /HPF Urine RBC (Auto) 0-2 (0-2) /HPF U Epithel Cells (Auto) NONE (FEW) /HPF Urine Bacteria (Auto) NONE (NEGATIVE) /HPF Urine Culture Reflexed NO (NO) Urine Glucose NEGATIVE (NEGATIVE) mg/dL Urine Opiates Level NEGATIVE (NEGATIVE) Ur Methadone NEGATIVE (NEGATIVE) Urine Barbiturates NEGATIVE (NEGATIVE) Ur Phencyclidine (PCP) NEGATIVE (NEGATIVE) Urine Amphetamine NEGATIVE (NEGATIVE) U Benzodiazepine Level NEGATIVE (NEGATIVE) Urine Cocaine NEGATIVE (NEGATIVE) Urine Marijuana (THC) NEGATIVE (NEGATIVE) Ethyl Alcohol (0-10) mg/dL Influenza Type A Ag (NEGATIVE) Influenza Type B Ag (NEGATIVE) RSV (PCR) (Negative) SARS-CoV-2 (PCR) (NEGATIVE) 10/31/20 Range/Units 10:07 WBC (4.0-10.5) K/mm3 RBC (4.1-5.6) M/mm3 Hgb (12.5-18.0) gm/dl Hct (42-50) % MCV (78-100) fl MCH (26-32) pg MCHC (32-36) g/dl RDW (11.5-14.0) % Plt Count (150-450) K/mm3 MPV (7.5-11.0) fl D-Dimer 696 H* (215-500) ng/mL Sodium (137-145) mmol/L Potassium (3.5-5.1) mmol/L Chloride (98-107) mmol/L Carbon Dioxide (22-30) mmol/L Anion Gap (5-15) MEQ/L BUN (9-20) mg/dL Creatinine (0.66-1.25) mg/dL Estimated GFR ML/MIN Glucose (74-106) mg/dL Lactic Acid (0.4-2.0) Calcium (8.4-10.2) mg/dL Magnesium (1.6-2.3) mg/dL Total Bilirubin (0.2-1.3) mg/dL AST (17-59) U/L ALT (0-50) U/L Alkaline Phosphatase (38-126) U/L Troponin I (0.000-0.034) ng/mL NT-Pro-B Natriuret Pep (0-900) pg/mL Serum Total Protein (6.3-8.2) g/dL Albumin (3.5-5.0) g/dL TSH 3rd Generation (0.47-4.68) mIU/L Urine Color (YELLOW) Urine Appearance (CLEAR) Urine pH (5-6) Ur Specific [place] (1.005-1.025) Urine Protein (Negative) Urine Ketones (NEGATIVE) Urine Blood (0-5) Pravin/ul Urine Nitrite (NEGATIVE) Urine Bilirubin (NEGATIVE) Urine Urobilinogen (0-1) mg/dL Ur Leukocyte Esterase (NEGATIVE) Urine WBC (Auto) (0-5) /HPF Urine RBC (Auto) (0-2) /HPF U Epithel Cells (Auto) (FEW) /HPF Urine Bacteria (Auto) (NEGATIVE) /HPF Urine Culture Reflexed (NO) Urine Glucose (NEGATIVE) mg/dL Urine Opiates Level (NEGATIVE) Ur Methadone (NEGATIVE) Urine Barbiturates (NEGATIVE) Ur Phencyclidine (PCP) (NEGATIVE) Urine Amphetamine (NEGATIVE) U Benzodiazepine Level (NEGATIVE) Urine Cocaine (NEGATIVE) Urine Marijuana (THC) (NEGATIVE) Ethyl Alcohol (0-10) mg/dL Influenza Type A Ag (NEGATIVE) Influenza Type B Ag (NEGATIVE) RSV (PCR) (Negative) SARS-CoV-2 (PCR) (NEGATIVE) - Progress Progress: improved Progress Note: 10/31/20 13:47 Patient reassessed. He feels much better. Vital stable. Lactic acid significantly improved from 8-0.8. IV antibiotics infused. D-dimer positive. CTA chest completed. Radiologist believes there are filling defects observed peripherally at the left lung base. Suspects PE. Patient received a dose of Lovenox. Vitals are now stable. Patient will be admitted to the floor. Case discussed with Dr. Lombardi who accepts admission to observation. Plan of care discussed with patient. He agrees to admission at [facility] for further evaluation and treatment. Discussed with .: Lizandro Will see patient in: hospital (observation) Counseled pt/family regarding: lab results, diagnosis, rad results - Departure Departure Disposition: Observation Clinical Impression: Lung granuloma, Pulmonary emboli, Hiatal hernia, Leukocytosis, Anemia, Lactic acidosis Condition: Stable Critical Care Time: No Referrals: GARY LOMBARDI MD [Primary Care Provider] -
[2020-10-31] MEDS ORDERED: Sodium Chloride 0.9% 1000 ML 1,000 ML IV SCH (10:15)
[2020-10-31] MEDS ORDERED: Zosyn 3.375 GM Vial 3.375 GM in Sodium Chloride 100ML MINI-BAG PLUS 100 ML IV ONE (10:28)
[2020-10-31] MEDS ORDERED: Sodium Chloride 0.9% 1000 ML 2,000 ML ONE (10:28)
[2020-10-31] MEDS ORDERED: VANCOMYCIN 2 GRAM/400 ML BAG 2 GM/400 ML PIGGYBACK IV ONE ×2 (10:29→11:07)
[2020-10-31] MEDS ORDERED: Zosyn 3.375 GM Vial IV ONE (10:34)
[2020-10-31] MEDS ORDERED: Sodium Chloride 100ML MINI-BAG PLUS 100 ML IV ONE (10:36)
--- NOTE | 2020-10-31 10:51 | XRAY ---
Exam: AP semierect upright portable chest film from 10/31/2020. Comparison: Two-view chest series from 01/13/2020. Indication: 65-year-old male with shortness of breath. Findings: 2 AP semi-upright images were obtained to evaluate the person's chest. Even so, the most inferior aspect of the left lateral costophrenic angle has been cut off from both images. The heart size is normal. There appears to be a stable calcified lymph node just to the left of the geraldine representing no change. The remainder of the danica and mediastinal structures appears unremarkable. EKG leads are seen in place. A small stable calcified granuloma is seen at the central right lung base. The remainder of the lung brown appears clear without infiltrate, vascular congestion, pneumothorax, or pleural effusion. I see mild/moderate biapical pleural thickening representing no change. Mild convexity of the spine toward the left centered at T1-T2 and the lower thoracic spine toward the right are seen representing no change. No acute osseous process is seen. Impression: 1. No acute cardiopulmonary disease is evident. I again see some chronic biapical pleural thickening and evidence of old healed granulomatous disease. The findings appear unchanged from 01/13/2020.
[2020-10-31 11:00] LABS: Appearance CLEAR (CLEAR); Bilirubin NEGATIVE (NEGATIVE); Blood SMALL Ery/ul (0-5); Glucose NEGATIVE (NEGATIVE); Ketones NEGATIVE (NEGATIVE); Leukocyte Esterase NEGATIVE (NEGATIVE); Nitrite NEGATIVE (NEGATIVE); Protein,Urine Dip NEGATIVE (Negative); RBC 0-2 /HPF (0-2); Specific Gravity 1.005 (1.005-1.025); Urobilinogen NEGATIVE mg/dL (0-1)
[2020-10-31 11:01] LABS: Hematocrit 34.1 % (42-50); Hemoglobin 10.7 gm/dl (12.5-18.0); Mean Cell Volume 92.2 fl (78-100); Mean Corpuscular Hemoglobin 28.9 pg (26-32); Mean Corpuscular Hgb Concent. 31.4 g/dl (32-36); Mean Platelet Volume 9.6 fl (7.5-11.0); Platelet Count 259 K/mm3 (150-450); Red Cell Distribution Width 14.8 % (11.5-14.0); White Blood Count 16.9 K/mm3 (4.0-10.5)
[2020-10-31 11:14] LABS: ALBUMIN 4.2 g/dL (3.5-5.0); ALKALINE PHOSPHATASE 66 U/L (38-126); ANION GAP 22.2 MEQ/L (5-15); BLOOD UREA NITROGEN 20 mg/dL (9-20); CHLORIDE 101 mmol/L (98-107); Calcium 9.7 mg/dL (8.4-10.2); Carbon Dioxide 17 mmol/L (22-30); Creatinine 1 1.28 mg/dL (0.66-1.25); EST GLOMERULAR FILTRATION RATE 59.6 ML/MIN; ETHYL ALCOHOL < 10 mg/dL (0-10); Glucose 197 mg/dL (74-106); MAGNESIUM 2.2 mg/dL (1.6-2.3); SGOT/AST 30 U/L (17-59); SODIUM 136 mmol/L (137-145)
[2020-10-31 11:15] LABS: Amphetamine,Urine NEGATIVE (NEGATIVE); Barbiturate,Urine NEGATIVE (NEGATIVE); Benzodiazepine,Urine NEGATIVE (NEGATIVE); Cocaine,Urine NEGATIVE (NEGATIVE); Methadone,Urine NEGATIVE (NEGATIVE); Opiate,Urine NEGATIVE (NEGATIVE); PCP,Urine NEGATIVE (NEGATIVE); THC,Urine NEGATIVE (NEGATIVE)
[2020-10-31] MEDS ORDERED: Sodium Chloride 0.9% 1000 ML 1,000 ML IV STA (11:17)
[2020-10-31 11:20] LABS: SGPT/ALT 27 U/L (0-50)
[2020-10-31 11:21] LABS: NT PRO BNP 56.3 pg/mL (0-900)
[2020-10-31 11:34] LABS: INFLUENZA A NEGATIVE (NEGATIVE); INFLUENZA B NEGATIVE (NEGATIVE); RESPIRATORY SYNCTIAL VIRUS NEGATIVE (Negative)
--- NOTE | 2020-10-31 13:19 | XRAY ---
Exam: CT of the chest with IV contrast per PE protocol from 10/31/2020. Total DLP: 831.09 mGy-cm Comparison: AP portable chest film from 10/31/2020. Indication: 65-year-old male with elevated d-dimer (696) and shortness of breath, consider pulmonary embolus. Technique: Post-IV contrast images were obtained through the chest using the PE protocol during and following automated intravenous injection of 100 cc of Isovue-370 contrast material. Reconstructed coronal and sagittal images were created and reviewed. Evidently, the patient was unable to raise his arms above his head for this exam which mildly limits the study from a technical standpoint. Findings: Opacification of the main pulmonary artery trunk, right and left main pulmonary arteries, and their proximal branches is adequate. Because the patient's arms are down by his side, visualization is some of the distal pulmonary arterial branches is limited due to noise artifact. There is a question of a couple subtle defects within the posterior left lung base of lower lobe on images #47 through #57 of series 2 which could conceivably represent tiny pulmonary emboli, but artifact is not excluded. The heart size is normal without pericardial effusion. I see no evidence of thoracic aortic aneurysm or aortic dissection. A large calcified lymph node is seen just to the left of the geraldine. There appears to be a mild retrocardiac hiatal hernia. A few small granulomatous calcifications are seen inferiorly and to the right of the geraldine. A couple small calcified granulomas are seen at the right lung base. The thyroid gland appears grossly unremarkable. The lung window images reveal no air space infiltrates, suspicious lung nodularity, pneumothorax, or pleural effusion. Mild biapical emphysematous changes are seen. No significant interstitial lung disease is seen. The upper abdomen reveals an unremarkable appearance of the adrenal glands. There is a suggestion of a small cyst within the left renal pelvis. Scattered colonic stool is noted. The skeleton reveals no acute fracture or aggressive bone lesion. Mild degenerative changes are seen within the thoracic spine. Impression: 1. The study is mildly limited due to the patient's arms being down by his side making evaluation of the distal arterial branches more difficult. There are questionable tiny filling defects versus artifact within the posterior left lung base within the distal left descending pulmonary branches, as discussed. However, it is also possible this is due to artifact. No other suspicious pulmonary artery filling defects are seen. 2. I believe there is a small retrocardiac hiatal hernia. 3. Old healed granulomatous disease and mild biapical emphysematous changes are seen. 4. No air space infiltrates or other acute cardiopulmonary disease is seen.
[2020-10-31] MEDS ORDERED: ENOXAPARIN SODIUM SQ ONE ×2 (13:28→13:29)
[2020-10-31] MEDS ORDERED: Zofran 4 MG/2 ML VIAL IV PRN (13:56)
[2020-10-31] MEDS ORDERED: MORPHINE SULFATE 2 MG INJ IV PRN (13:56)
[2020-10-31 14:00] LABS: Lymphocytes 12 % (24-44); Monocyte 3 % (0.0-12.0); Neutrophils 85 % (36.-66.); Platelet Estimate NORMAL (NORMAL); Total Cells Counted 100; Toxic Granulation 1+
[2020-10-31] MEDS ORDERED: NON-FORMULARY ITEM (Clonazepam [Klonopin] 1 MG) PO PRN (16:45)
[2020-10-31] MEDS ORDERED: Klonopin 0.5 MG PO PRN (16:55)
[2020-10-31] MEDS: hydroDIURIL 25 MG PO SCH (17:00)
[2020-10-31] MEDS ORDERED: MEDICATION INTERVENTION MC SCH (17:00)
[2020-10-31] MEDS: Protonix 40MG Tablet PO SCH (17:00)
[2020-10-31] MEDS: Zestril 20 MG PO SCH (17:00)
[2020-10-31] MEDS: ADVAIR 500-50 DISKUS IH SCH (20:58)
[2020-10-31] MEDS: Lopressor 25MG Tab PO SCH (21:05)
[2020-10-31] MEDS: BUSPAR 5 MG PO SCH (21:05)
[2020-10-31] MEDS: Risperdal 1 MG PO SCH (21:05)
--- NOTE | 2020-10-31 21:45 | PCM.HP ---
History of Present Illness - Chief Complaint Chief Complaint: c/o shortness of breath for 1 day History of Present Illness: is a 65 year old male. presents to our ED via EMS for evaluation of shortness of breath. Patient [place]ly [place] of breath. Upon EMS evaluation patient was found to be tachycardic. Patient denied pain. No chest pain or shortness of breath. No coughs no nausea vomiting or diaphoresis. No diarrhea. No rash. Patient brought to our ED for an evaluation. Upon initial evaluation patient was found to be tachycardic. Systolic blood pressure in the mid 90s. Temperature was slightly elevated at 99 range. Septic work-up initiated. Patient denies any complaints at this time. - Review of Systems Constitutional: No Fever, No Chills Eyes: No Symptoms Ears, Nose, & Throat: No Symptoms Respiratory: Orthopnea, Short Of Breath, No Cough Cardiac: No Chest Pain, No Edema, No Syncope Abdominal/Gastrointestinal: No Abdominal Pain, No Nausea, No Vomiting, No Diarrhea Genitourinary Symptoms: No Dysuria Musculoskeletal: No Back Pain, No Neck Pain Skin: No Rash Neurological: No Dizziness, No Focal Weakness, No Sensory Changes Psychological: No Symptoms Endocrine: No Symptoms Hematologic/Lymphatic: No Symptoms Immunological/Allergic: No Symptoms Medications & Allergies Home Medications: Home Medication List Clonazepam [Klonopin] 1 mg PO TID PRN 11/10/16 [History Confirmed 10/31/20] Quetiapine Fumarate 100 mg [Seroquel 100 MG] 150 mg PO HS 11/10/16 [History Confirmed 10/31/20] Amlodipine Besylate 10 mg [Norvasc 10 MG] 10 mg PO HS 04/17/18 [History Confirmed 10/31/20] Budesonide/Formoterol Fumarate [Budesonide-Formoterol 160-4.5] 2 puffs IH BID 01/14/20 [History Confirmed 10/31/20] PANTOPRAZOLE 40 mg Tablet [Protonix 40MG Tablet] 40 mg PO DAILY 04/21/20 [History Confirmed 10/31/20] Buspirone HCl [Buspar] 10 mg PO BID 10/31/20 [History Confirmed 10/31/20] Lisinopril/Hydrochlorothiazide [Lisinopril-Hctz 20-25 mg Tab] 1 each PO DAILY 10/31/20 [History Confirmed 10/31/20] Metoprolol Tartrate 25 mg [Lopressor 25MG Tab] 25 mg PO BID 10/31/20 [History Confirmed 10/31/20] Risperidone [Risperdal] 2 mg PO BID 10/31/20 [History Confirmed 10/31/20] Allergies/Adverse Reactions: Allergies Allergy/AdvReac Type Severity Reaction Status Date / Time No Known Drug Allergies Allergy Verified 10/31/20 14:40 - Past Medical History Past Medical History: Yes Neurological History: Other ENT History: No Pertinent History Cardiac History: Hypertension Respiratory History: No Pertinent History Endocrine Medical History: No Pertinent History Musculoskelatal History: No Pertinent History GI Medical History: GERD History: No Pertinent History Pyscho-Social History: Anxiety Male Reproductive Disorders: No Pertinent History Comment: CP, 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 - Past Surgical History Past Surgical History: Yes Neuro Surgical History: No Pertinent History Cardiac History: No Pertinent History Respiratory Surgery: No Pertinent History GI Surgical History: No Pertinent History Genitourinary Surgical Hx: No Pertinent History Musculskeletal Surgical Hx: No Pertinent History Male Surgical History: No Pertinent History Other Surgical History: SKIN CA REMOVED - Social History Smoking Status: Never smoker How long have you smoked: 35 Exposure to second hand smoke: No Alcohol: None Drug Use: none Significant Family History: no pertinent family hx - Physical Exam Vital Signs: Vital Signs - 24 hr Temp Pulse Resp BP Pulse Ox 10/31/20 20:59 114 H 20 98 10/31/20 20:00 96.0 F 119 H 20 130/63 97 10/31/20 16:00 97.5 F 116 H 20 135/71 99 10/31/20 14:07 97.5 F 116 H 20 135/71 99 10/31/20 13:48 97 10/31/20 13:21 97.9 F 113 H 20 126/75 100 10/31/20 12:22 116 H 22 117/72 100 10/31/20 11:02 116 H 14 108/69 98 10/31/20 10:13 99.3 F 138 H 15 95/59 97 General Appearance: no apparent distress, alert 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, sensation nml, confusion, No motor deficits Eye Exam: PERRL/EOMI, eyes nml inspection Ears, Nose, Throat Exam: normal ENT inspection, TMs normal, pharynx normal, moist mucous membranes Neck Exam: normal inspection, non-tender, supple, full range of motion Respiratory Exam: diminished breath sounds, crackles/rales, rhonchi, No respiratory distress Cardiovascular Exam: regular rate/rhythm, normal heart sounds, normal peripheral pulses Gastrointestinal/Abdomen Exam: soft, normal bowel sounds, No tenderness, No mass Back Exam: normal inspection, normal range of motion, No CVA tenderness, No vertebral tenderness Extremity Exam: normal inspection, normal range of motion, pelvis stable Skin Exam: normal color, warm, dry, No rash Lymphatic Exam: No adenopathy Results - Labs Lab/Micro Results: Lab Results-Last 24 Hours 10/31/20 10/31/20 10/31/20 Range/Units 10:07 10:20 10:23 WBC (4.0-10.5) K/mm3 RBC (4.1-5.6) M/mm3 Hgb (12.5-18.0) gm/dl Hct (42-50) % MCV (78-100) fl MCH (26-32) pg MCHC (32-36) g/dl RDW (11.5-14.0) % Plt Count (150-450) K/mm3 MPV (7.5-11.0) fl Segmented Neutrophils (36.-66.) % Lymphocytes (Manual) (24-44) % Monocytes (Manual) (0.0-12.0) % Toxic Granulation Platelet Estimate (NORMAL) RBC Morphology D-Dimer 696 H* (215-500) ng/mL Sodium (137-145) mmol/L Potassium (3.5-5.1) mmol/L Chloride (98-107) mmol/L Carbon Dioxide (22-30) mmol/L Anion Gap (5-15) MEQ/L BUN (9-20) mg/dL Creatinine (0.66-1.25) mg/dL Estimated GFR ML/MIN Glucose (74-106) mg/dL Lactic Acid 8.2 H (0.4-2.0) Calcium (8.4-10.2) mg/dL Magnesium (1.6-2.3) mg/dL Total Bilirubin (0.2-1.3) mg/dL AST (17-59) U/L ALT (0-50) U/L Alkaline Phosphatase (38-126) U/L Troponin I (0.000-0.034) ng/mL NT-Pro-B Natriuret Pep (0-900) pg/mL Serum Total Protein (6.3-8.2) g/dL Albumin (3.5-5.0) g/dL TSH 3rd Generation (0.47-4.68) mIU/L Urine Color STRAW (YELLOW) Urine Appearance CLEAR (CLEAR) Urine pH 7.0 (5-6) Ur Specific Surveyor 1.005 (1.005-1.025) Urine Protein NEGATIVE (Negative) Urine Ketones NEGATIVE (NEGATIVE) Urine Blood SMALL (0-5) Pravin/ul Urine Nitrite NEGATIVE (NEGATIVE) Urine Bilirubin NEGATIVE (NEGATIVE) Urine Urobilinogen NEGATIVE (0-1) mg/dL Ur Leukocyte Esterase NEGATIVE (NEGATIVE) Urine WBC (Auto) NONE (0-5) /HPF Urine RBC (Auto) 0-2 (0-2) /HPF U Epithel Cells (Auto) NONE (FEW) /HPF Urine Bacteria (Auto) NONE (NEGATIVE) /HPF Urine Culture Reflexed NO (NO) Urine Glucose NEGATIVE (NEGATIVE) mg/dL Urine Opiates Level (NEGATIVE) Ur Methadone (NEGATIVE) Urine Barbiturates (NEGATIVE) Ur Phencyclidine (PCP) (NEGATIVE) Urine Amphetamine (NEGATIVE) U Benzodiazepine Level (NEGATIVE) Urine Cocaine (NEGATIVE) Urine Marijuana (THC) (NEGATIVE) Ethyl Alcohol (0-10) mg/dL Influenza Type A Ag (NEGATIVE) Influenza Type B Ag (NEGATIVE) RSV (PCR) (Negative) SARS-CoV-2 (PCR) (NEGATIVE) 10/31/20 10/31/20 10/31/20 Range/Units 10:23 10:30 10:30 WBC (4.0-10.5) K/mm3 RBC (4.1-5.6) M/mm3 Hgb (12.5-18.0) gm/dl Hct (42-50) % MCV (78-100) fl MCH (26-32) pg MCHC (32-36) g/dl RDW (11.5-14.0) % Plt Count (150-450) K/mm3 MPV (7.5-11.0) fl Segmented Neutrophils (36.-66.) % Lymphocytes (Manual) (24-44) % Monocytes (Manual) (0.0-12.0) % Toxic Granulation Platelet Estimate (NORMAL) RBC Morphology D-Dimer (215-500) ng/mL Sodium 136 L (137-145) mmol/L Potassium 4.0 (3.5-5.1) mmol/L Chloride 101 (98-107) mmol/L Carbon Dioxide 17 L (22-30) mmol/L Anion Gap 22.2 H (5-15) MEQ/L BUN 20 (9-20) mg/dL Creatinine 1.28 H (0.66-1.25) mg/dL Estimated GFR 59.6 ML/MIN Glucose 197 H (74-106) mg/dL Lactic Acid (0.4-2.0) Calcium 9.7 (8.4-10.2) mg/dL Magnesium 2.2 (1.6-2.3) mg/dL Total Bilirubin 0.20 (0.2-1.3) mg/dL AST 30 (17-59) U/L ALT 27 (0-50) U/L Alkaline Phosphatase 66 (38-126) U/L Troponin I (0.000-0.034) ng/mL NT-Pro-B Natriuret Pep 56.3 (0-900) pg/mL Serum Total Protein 7.0 (6.3-8.2) g/dL Albumin 4.2 (3.5-5.0) g/dL TSH 3rd Generation 1.330 (0.47-4.68) mIU/L Urine Color (YELLOW) Urine Appearance (CLEAR) Urine pH (5-6) Ur Specific Surveyor (1.005-1.025) Urine Protein (Negative) Urine Ketones (NEGATIVE) Urine Blood (0-5) Pravin/ul Urine Nitrite (NEGATIVE) Urine Bilirubin (NEGATIVE) Urine Urobilinogen (0-1) mg/dL Ur Leukocyte Esterase (NEGATIVE) Urine WBC (Auto) (0-5) /HPF Urine RBC (Auto) (0-2) /HPF U Epithel Cells (Auto) (FEW) /HPF Urine Bacteria (Auto) (NEGATIVE) /HPF Urine Culture Reflexed (NO) Urine Glucose (NEGATIVE) mg/dL Urine Opiates Level NEGATIVE (NEGATIVE) Ur Methadone NEGATIVE (NEGATIVE) Urine Barbiturates NEGATIVE (NEGATIVE) Ur Phencyclidine (PCP) NEGATIVE (NEGATIVE) Urine Amphetamine NEGATIVE (NEGATIVE) U Benzodiazepine Level NEGATIVE (NEGATIVE) Urine Cocaine NEGATIVE (NEGATIVE) Urine Marijuana (THC) NEGATIVE (NEGATIVE) Ethyl Alcohol < 10 (0-10) mg/dL Influenza Type A Ag (NEGATIVE) Influenza Type B Ag (NEGATIVE) RSV (PCR) (Negative) SARS-CoV-2 (PCR) (NEGATIVE) 10/31/20 10/31/20 10/31/20 Range/Units 10:30 10:30 10:40 WBC 16.9 H (4.0-10.5) K/mm3 RBC 3.70 L (4.1-5.6) M/mm3 Hgb 10.7 L (12.5-18.0) gm/dl Hct 34.1 L (42-50) % MCV 92.2 (78-100) fl MCH 28.9 (26-32) pg MCHC 31.4 L (32-36) g/dl RDW 14.8 H (11.5-14.0) % Plt Count 259 (150-450) K/mm3 MPV 9.6 (7.5-11.0) fl Segmented Neutrophils 85 H (36.-66.) % Lymphocytes (Manual) 12 L (24-44) % Monocytes (Manual) 3 (0.0-12.0) % Toxic Granulation 1+ Platelet Estimate NORMAL (NORMAL) RBC Morphology NORMAL D-Dimer (215-500) ng/mL Sodium (137-145) mmol/L Potassium (3.5-5.1) mmol/L Chloride (98-107) mmol/L Carbon Dioxide (22-30) mmol/L Anion Gap (5-15) MEQ/L BUN (9-20) mg/dL Creatinine (0.66-1.25) mg/dL Estimated GFR ML/MIN Glucose (74-106) mg/dL Lactic Acid (0.4-2.0) Calcium (8.4-10.2) mg/dL Magnesium (1.6-2.3) mg/dL Total Bilirubin (0.2-1.3) mg/dL AST (17-59) U/L ALT (0-50) U/L Alkaline Phosphatase (38-126) U/L Troponin I < 0.012 (0.000-0.034) ng/mL NT-Pro-B Natriuret Pep (0-900) pg/mL Serum Total Protein (6.3-8.2) g/dL Albumin (3.5-5.0) g/dL TSH 3rd Generation (0.47-4.68) mIU/L Urine Color (YELLOW) Urine Appearance (CLEAR) Urine pH (5-6) Ur Specific Surveyor (1.005-1.025) Urine Protein (Negative) Urine Ketones (NEGATIVE) Urine Blood (0-5) Pravin/ul Urine Nitrite (NEGATIVE) Urine Bilirubin (NEGATIVE) Urine Urobilinogen (0-1) mg/dL Ur Leukocyte Esterase (NEGATIVE) Urine WBC (Auto) (0-5) /HPF Urine RBC (Auto) (0-2) /HPF U Epithel Cells (Auto) (FEW) /HPF Urine Bacteria (Auto) (NEGATIVE) /HPF Urine Culture Reflexed (NO) Urine Glucose (NEGATIVE) mg/dL Urine Opiates Level (NEGATIVE) Ur Methadone (NEGATIVE) Urine Barbiturates (NEGATIVE) Ur Phencyclidine (PCP) (NEGATIVE) Urine Amphetamine (NEGATIVE) U Benzodiazepine Level (NEGATIVE) Urine Cocaine (NEGATIVE) Urine Marijuana (THC) (NEGATIVE) Ethyl Alcohol (0-10) mg/dL Influenza Type A Ag NEGATIVE (NEGATIVE) Influenza Type B Ag NEGATIVE (NEGATIVE) RSV (PCR) NEGATIVE (Negative) SARS-CoV-2 (PCR) NEGATIVE (NEGATIVE) 10/31/20 10/31/20 10/31/20 Range/Units 12:25 13:20 16:15 WBC (4.0-10.5) K/mm3 RBC (4.1-5.6) M/mm3 Hgb (12.5-18.0) gm/dl Hct (42-50) % MCV (78-100) fl MCH (26-32) pg MCHC (32-36) g/dl RDW (11.5-14.0) % Plt Count (150-450) K/mm3 MPV (7.5-11.0) fl Segmented Neutrophils (36.-66.) % Lymphocytes (Manual) (24-44) % Monocytes (Manual) (0.0-12.0) % Toxic Granulation Platelet Estimate (NORMAL) RBC Morphology D-Dimer (215-500) ng/mL Sodium (137-145) mmol/L Potassium (3.5-5.1) mmol/L Chloride (98-107) mmol/L Carbon Dioxide (22-30) mmol/L Anion Gap (5-15) MEQ/L BUN (9-20) mg/dL Creatinine (0.66-1.25) mg/dL Estimated GFR ML/MIN Glucose (74-106) mg/dL Lactic Acid 0.8 (0.4-2.0) Calcium (8.4-10.2) mg/dL Magnesium (1.6-2.3) mg/dL Total Bilirubin (0.2-1.3) mg/dL AST (17-59) U/L ALT (0-50) U/L Alkaline Phosphatase (38-126) U/L Troponin I 0.014 0.020 (0.000-0.034) ng/mL NT-Pro-B Natriuret Pep (0-900) pg/mL Serum Total Protein (6.3-8.2) g/dL Albumin (3.5-5.0) g/dL TSH 3rd Generation (0.47-4.68) mIU/L Urine Color (YELLOW) Urine Appearance (CLEAR) Urine pH (5-6) Ur Specific Surveyor (1.005-1.025) Urine Protein (Negative) Urine Ketones (NEGATIVE) Urine Blood (0-5) Pravin/ul Urine Nitrite (NEGATIVE) Urine Bilirubin (NEGATIVE) Urine Urobilinogen (0-1) mg/dL Ur Leukocyte Esterase (NEGATIVE) Urine WBC (Auto) (0-5) /HPF Urine RBC (Auto) (0-2) /HPF U Epithel Cells (Auto) (FEW) /HPF Urine Bacteria (Auto) (NEGATIVE) /HPF Urine Culture Reflexed (NO) Urine Glucose (NEGATIVE) mg/dL Urine Opiates Level (NEGATIVE) Ur Methadone (NEGATIVE) Urine Barbiturates (NEGATIVE) Ur Phencyclidine (PCP) (NEGATIVE) Urine Amphetamine (NEGATIVE) U Benzodiazepine Level (NEGATIVE) Urine Cocaine (NEGATIVE) Urine Marijuana (THC) (NEGATIVE) Ethyl Alcohol (0-10) mg/dL Influenza Type A Ag (NEGATIVE) Influenza Type B Ag (NEGATIVE) RSV (PCR) (Negative) SARS-CoV-2 (PCR) (NEGATIVE) 10/31/20 Range/Units 19:50 WBC (4.0-10.5) K/mm3 RBC (4.1-5.6) M/mm3 Hgb (12.5-18.0) gm/dl Hct (42-50) % MCV (78-100) fl MCH (26-32) pg MCHC (32-36) g/dl RDW (11.5-14.0) % Plt Count (150-450) K/mm3 MPV (7.5-11.0) fl Segmented Neutrophils (36.-66.) % Lymphocytes (Manual) (24-44) % Monocytes (Manual) (0.0-12.0) % Toxic Granulation Platelet Estimate (NORMAL) RBC Morphology D-Dimer (215-500) ng/mL Sodium (137-145) mmol/L Potassium (3.5-5.1) mmol/L Chloride (98-107) mmol/L Carbon Dioxide (22-30) mmol/L Anion Gap (5-15) MEQ/L BUN (9-20) mg/dL Creatinine (0.66-1.25) mg/dL Estimated GFR ML/MIN Glucose (74-106) mg/dL Lactic Acid (0.4-2.0) Calcium (8.4-10.2) mg/dL Magnesium (1.6-2.3) mg/dL Total Bilirubin (0.2-1.3) mg/dL AST (17-59) U/L ALT (0-50) U/L Alkaline Phosphatase (38-126) U/L Troponin I 0.015 (0.000-0.034) ng/mL NT-Pro-B Natriuret Pep (0-900) pg/mL Serum Total Protein (6.3-8.2) g/dL Albumin (3.5-5.0) g/dL TSH 3rd Generation (0.47-4.68) mIU/L Urine Color (YELLOW) Urine Appearance (CLEAR) Urine pH (5-6) Ur Specific Surveyor (1.005-1.025) Urine Protein (Negative) Urine Ketones (NEGATIVE) Urine Blood (0-5) Pravin/ul Urine Nitrite (NEGATIVE) Urine Bilirubin (NEGATIVE) Urine Urobilinogen (0-1) mg/dL Ur Leukocyte Esterase (NEGATIVE) Urine WBC (Auto) (0-5) /HPF Urine RBC (Auto) (0-2) /HPF U Epithel Cells (Auto) (FEW) /HPF Urine Bacteria (Auto) (NEGATIVE) /HPF Urine Culture Reflexed (NO) Urine Glucose (NEGATIVE) mg/dL Urine Opiates Level (NEGATIVE) Ur Methadone (NEGATIVE) Urine Barbiturates (NEGATIVE) Ur Phencyclidine (PCP) (NEGATIVE) Urine Amphetamine (NEGATIVE) U Benzodiazepine Level (NEGATIVE) Urine Cocaine (NEGATIVE) Urine Marijuana (THC) (NEGATIVE) Ethyl Alcohol (0-10) mg/dL Influenza Type A Ag (NEGATIVE) Influenza Type B Ag (NEGATIVE) RSV (PCR) (Negative) SARS-CoV-2 (PCR) (NEGATIVE) - Radiology Impressions Radiology Exams & Impressions: Radiology Procedures Category Date Time Status CHEST 1 VIEW (PORTABLE) Stat Exams 10/31/20 10:08 Completed CHEST WITH CONTRAST [CT] Stat Exams 10/31/20 11:09 Completed - Other Procedures and Tests Respiratory Therapy 10/31/20 17:12 Respiratory MDI BID Respiratory Therapy Assessment DAILY Assessment/Plan (1) Lactic acidosis Current Visit: Yes Status: Acute Code(s): E87.2 - ACIDOSIS (2) Leukocytosis Current Visit: Yes Status: Acute Code(s): D72.829 - ELEVATED WHITE BLOOD CELL COUNT, UNSPECIFIED (3) Pulmonary emboli Current Visit: Yes Status: Acute Code(s): I26.99 - OTHER PULMONARY EMBOLISM WITHOUT ACUTE COR PULMONALE
[2020-10-31] MEDS ORDERED: NON-FORMULARY ITEM (Buspirone Hcl [Buspar] 10 MG) PO SCH (22:00)
[2020-10-31] MEDS ORDERED: BUDESONIDE IH SCH (22:00)
[2020-10-31] MEDS ORDERED: Seroquel 100 MG PO SCH (22:00)
[2020-10-31] MEDS ORDERED: FORMOTEROL FUMARATE IH SCH (22:00)
[2020-10-31] MEDS ORDERED: NON-FORMULARY ITEM (Amlodipine Besylate 10 Mg [Norvasc 10 Mg] 10 MG) PO SCH (22:00)
[2020-10-31] MEDS ORDERED: [UNRECOGNIZED DRUG - OTHER] IH SCH (22:00)
[2020-10-31] MEDS ORDERED: NORVASC 5 MG PO SCH (22:00)
[2020-10-31] MEDS ORDERED: NON-FORMULARY ITEM (Risperidone [Risperdal] 2 MG) PO SCH (22:00)
[2020-11-01 05:04] LABS: Hematocrit 34.1 % (42-50); Hemoglobin 10.4 gm/dl (12.5-18.0); Mean Cell Volume 93.9 fl (78-100); Mean Corpuscular Hemoglobin 28.7 pg (26-32); Mean Corpuscular Hgb Concent. 30.5 g/dl (32-36); Mean Platelet Volume 8.9 fl (7.5-11.0); Platelet Count 238 K/mm3 (150-450); Red Blood Count 3.63 M/mm3 (4.1-5.6); Red Cell Distribution Width 15.3 % (11.5-14.0); White Blood Count 8.8 K/mm3 (4.0-10.5)
[2020-11-01 05:57] LABS: ALBUMIN 3.5 g/dL (3.5-5.0); ANION GAP 10.8 MEQ/L (5-15); BILIRUBIN,TOTAL 0.2 mg/dL (0.2-1.3); Calcium 8.8 mg/dL (8.4-10.2); Creatinine 1 1.37 mg/dL (0.66-1.25); EST GLOMERULAR FILTRATION RATE 55.1 ML/MIN; Potassium 3.8 mmol/L (3.5-5.1); Total Protein 6.3 g/dL (6.3-8.2)
[2020-11-01] MEDS: ADVAIR 500-50 DISKUS IH SCH (07:04)
[2020-11-01 07:11] LABS: BAND 3 % (0.0-2.0); Eosinophil 6 % (0.00-3.0); Lymphocytes 17 % (24-44); Metamyelocyte 1 %; Monocyte 13 % (0.0-12.0); Neutrophils 60 % (36.-66.); Platelet Estimate NORMAL (NORMAL); Total Cells Counted 100
[2020-11-01 07:12] LABS: ANISOCYTOSIS 1+; Poikilocytosis 1+
[2020-11-01 07:30] LABS: Absolute Neutrophil Ct (ANC) 5.55 (1.4-6.9)
[2020-11-01] MEDS: BUSPAR 5 MG PO SCH (09:15)
[2020-11-01] MEDS: Risperdal 1 MG PO SCH (09:15)
[2020-11-01] MEDS: Zestril 20 MG PO SCH (09:15)
[2020-11-01] MEDS: Lopressor 25MG Tab PO SCH (09:15)
[2020-11-01] MEDS: Protonix 40MG Tablet PO SCH (09:15)
[2020-11-01] MEDS: hydroDIURIL 25 MG PO SCH (09:15)
[2020-11-01] MEDS ORDERED: NON-FORMULARY ITEM (Lisinopril/Hydrochlorothiazide [Lisinopril-Hctz 20-25 Mg Tab] 1 EACH) PO SCH (10:00)
[2020-11-01 11:40] VITALS: BP 101/64; PULSE 78; O2SAT 97
--- NOTE | 2020-11-02 07:50 | PCM.DS ---
Discharge Summary Date of Admission: 10/31/20 13:45 Admitting Physician: GARY LOMBARDI Primary Care Provider: GARY LOMBARDI Allergies Allergies No Known Drug Allergies Allergy (Verified 10/31/20 14:40) Hospital Summary - Hospital Course Hospital Course: Chief Complaint Diagnosis c/o shortness of breath for 1 day Allergies Allergy/AdvReac Type Severity Reaction Status Date / Time No Known Drug Allergies Allergy Verified 10/31/20 14:40 Vital Signs (Last 24 hours) Temp Pulse Resp BP Pulse Ox 11/01/20 11:40 97.4 F 78 23 101/64 97 11/01/20 07:52 97.0 F 87 13 104/66 94 L Home Medications Medication Instructions Recorded Confirmed Last Taken Type Buspirone HCl [Buspar] 10 mg PO BID 10/31/20 10/31/20 10/30/20 History Lisinopril/Hydrochlorothiazide 1 each PO DAILY 10/31/20 10/31/20 10/30/20 History [Lisinopril-Hctz 20-25 mg Tab] Metoprolol Tartrate 25 mg 25 mg PO BID 10/31/20 10/31/20 10/30/20 History [Lopressor 25MG Tab] Risperidone [Risperdal] 2 mg PO BID 10/31/20 10/31/20 10/30/20 History Current Medications Discontinued Medications Generic Name Dose Route Start Last Admin Trade Name Freq PRN Reason Stop Dose Admin Amlodipine Besylate 10 mg 10/31/20 22:00 10/31/20 21:02 Norvasc 5 Mg PO 11/30/20 21:59 10 mg HS [facility] Administration Buspirone HCl 10 mg 10/31/20 22:00 11/01/20 09:15 Buspar 5 Mg PO 11/30/20 21:59 10 mg BID [facility] Administration Clonazepam 1 mg 10/31/20 16:55 Klonopin 0.5 Mg PO 11/30/20 16:54 TID PRN PRN ANXIETY Enoxaparin Sodium 60 mg 10/31/20 13:28 10/31/20 13:30 Enoxaparin Sodium SQ 10/31/20 13:29 60 mg STAT ONE Administration Enoxaparin Sodium Confirm 10/31/20 13:29 Enoxaparin Sodium Administered 10/31/20 13:30 Dose 80 mg SQ .STK-MED ONE Hydrochlorothiazide 25 mg 10/31/20 17:00 11/01/20 09:15 Hydrodiuril 25 Mg PO 11/30/20 16:59 25 mg DAILY [facility] Administration Sodium Chloride 1,000 mls @ 100 mls/hr 10/31/20 10:15 10/31/20 12:26 Sodium Chloride 0.9% 1000 Ml IV 11/30/20 10:14 Infused .Q10H [facility] Infusion Piperacillin Sod/Tazobactam 100 mls @ 200 mls/hr 10/31/20 10:28 10/31/20 10:37 Sod 3.375 gm/ Sodium Chloride IV 10/31/20 10:57 200 mls/hr STAT ONE Administration Vancomycin HCl 2 gm in 400 mls @ 133.333 mls/hr 10/31/20 10:29 10/31/20 11:23 Vancomycin 2 Gram/400 Ml Bag IV 10/31/20 13:28 133.333 mls/hr STAT ONE 133.33 mls/hr Administration Sodium Chloride Confirm 10/31/20 10:36 Sodium Chloride 100ml Mini-Bag Plus Administered 10/31/20 10:37 Dose 100 mls @ ud IV .STK-MED ONE Vancomycin HCl Confirm 10/31/20 11:07 Vancomycin 2 Gram/400 Ml Bag Administered 10/31/20 11:08 Dose 2 gm in 400 mls @ ud IV .STK-MED ONE Sodium Chloride 1,000 mls @ 999 mls/hr 10/31/20 11:17 10/31/20 12:21 Sodium Chloride 0.9% 1000 Ml IV 10/31/20 12:17 Infused .Q1H1M STA Infusion Sodium Chloride Confirm 10/31/20 10:28 Sodium Chloride 0.9% 1000 Ml Administered 10/31/20 10:29 Dose 2,000 mls @ ud .ROUTE .STK-MED ONE Lisinopril 20 mg 10/31/20 17:00 11/01/20 09:15 Zestril 20 Mg PO 11/30/20 16:59 20 mg DAILY [facility] Administration Metoprolol Tartrate 25 mg 10/31/20 22:00 11/01/20 09:15 Lopressor 25mg Tab PO 11/30/20 21:59 25 mg BID [facility] Administration Miscellaneous Information 1 each 10/31/20 17:00 Medication Intervention MC 11/30/20 16:59 .RT TO CHECK ON [facility] Morphine Sulfate 2 mg 10/31/20 13:56 Morphine Sulfate 2 Mg Inj IV 11/05/20 13:55 Q4H PRN PRN PAIN Ondansetron HCl 4 mg 10/31/20 13:56 Zofran 4 Mg/2 Ml Vial IV 11/30/20 13:55 Q6H PRN PRN NAUSEA/VOMITING Pantoprazole Sodium 40 mg 10/31/20 17:00 11/01/20 09:15 Protonix 40mg Tablet PO 11/30/20 16:59 40 mg DAILY [facility] Administration Piperacillin Sod/Tazobactam Sod Confirm 10/31/20 10:34 Zosyn 3.375 Gm Vial Administered 10/31/20 10:35 Dose 3.375 gm IV .STK-MED ONE Quetiapine Fumarate 150 mg 10/31/20 22:00 10/31/20 21:04 Seroquel 100 Mg PO 11/30/20 21:59 150 mg HS [facility] Administration Risperidone 2 mg 10/31/20 22:00 11/01/20 09:15 Risperdal 1 Mg PO 11/30/20 21:59 2 mg BID [facility] Administration Fluticasone/Salmeterol 1 each 10/31/20 19:00 11/01/20 07:04 Advair 500-50 Diskus IH 11/30/20 18:59 1 each BIDRT [facility] Administration Intake & Output (Last 24 hours) 10/30/20 10/31/20 11/01/20 11/02/20 11:59 11:59 11:59 11:59 Intake Total 1730 Output Total 3900 Balance -2170 Weight 63.503 kg 68 kg Microbiology Results (Last 24 hours) 10/31/20 10:23 Blood Blood Culture Gram Stain - Pending 10/31/20 10:23 Blood Blood Culture - Preliminary NO GROWTH TO DATE 10/31/20 10:40 Blood Blood Culture Gram Stain - Pending 10/31/20 10:40 Blood Blood Culture - Preliminary NO GROWTH TO DATE Orders (Last 24 hours) Category Date Time Status Discharge Routine Discharge 11/01/20 12:00 Ordered Patient Care Notes (Last 24 hours) 11/01/20 13:44 Nursing Note by Florinda Boogie I faxed paperwork to [email or web address] at [phone] Initialized on 11/01/20 13:44 - END OF NOTE 11/01/20 12:42 Case Management Note by Corinne Rainey CALL TO [facility] TO PROVIDE TRANSPORTATION HOME, SPOKE WITH TOM[facility]S, ALLOW [address], BUT WILL LIKELY BE SOONER THAT THAT. SPOKE WITH [employer]. CONFIRMATION NUMBER [id number]. Initialized on 11/01/20 12:42 - END OF NOTE 11/01/20 12:42 Case Management Note by Jodi Sullivan AT [facility] NEED[facility] CALLED WHEN PATIENT DISCHARGES HOME AT [phone]. THEY WILL ALSO NEED THE DC INSTRUCTIONS, DC MED LIST AND DC SUMMARY(IF AVAILABLE) TO [phone] Initialized on 11/01/20 12:42 - END OF NOTE - Vitals & Intake/Output Vital Signs: Vital Signs Temperature 97.4 F 11/01/20 11:40 Pulse Rate 78 11/01/20 11:40 Respiratory Rate 23 11/01/20 11:40 Blood Pressure 101/64 11/01/20 11:40 O2 Sat by Pulse Oximetry 97 11/01/20 11:40 Intake & Output: Intake & Output 10/30/20 10/31/20 11/01/20 11/02/20 11:59 11:59 11:59 11:59 Intake Total 1730 Output Total 3900 Balance -2170 Weight 63.503 kg 68 kg - Lab Result Diagrams: 11/01/20 05:00 11/01/20 05:00 Micro Results-Entire Visit: Microbiology 10/31/20 10:23 Blood Culture - Preliminary Blood NO GROWTH TO DATE 10/31/20 10:40 Blood Culture - Preliminary Blood NO GROWTH TO DATE - Radiology Exams Ordered Rad Exams-Entire Visit: Radiology Procedures Category Date Time Status CHEST 1 VIEW (PORTABLE) Stat Exams 10/31/20 10:08 Completed CHEST WITH CONTRAST [CT] Stat Exams 10/31/20 11:09 Completed - Procedures and Test Procedures and Tests throughout Hospitalization: Therapy Orders & Screens 10/31/20 17:12 Respiratory MDI BID Comment: Diagnosis: SEPSIS, PE, SOB Respiratory Therapy Assessment DAILY Comment: Diagnosis: SEPSIS, PE, SOB Discharge Exam General Appearance: no apparent distress, alert 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, oriented x 3, cooperative, normal mood/affect, nml cerebellar function, sensation nml, No motor deficits Eye Exam: PERRL, EOMI, eyes nml inspection Ears, Nose, Throat Exam: normal ENT inspection, pharynx normal, moist mucous membranes Neck Exam: normal inspection, non-tender, supple, full range of motion Respiratory Exam: normal breath sounds, lungs clear, No respiratory distress Cardiovascular Exam: regular rate/rhythm, normal heart sounds Gastrointestinal/Abdomen Exam: soft, No tenderness, No mass Male Genitalia Exam: deferred Rectal Exam: deferred Back Exam: normal inspection, normal range of motion, No CVA tenderness, No vertebral tenderness Extremity Exam: normal inspection, normal range of motion Skin Exam: normal color, warm, dry Final Diagnosis/Problem List - Final Discharge Diagnosis/Problem (1) Lactic acidosis Status: Resolved Code(s): E87.2 - ACIDOSIS (2) Leukocytosis Status: Resolved Code(s): D72.829 - ELEVATED WHITE BLOOD CELL COUNT, UNSPECIFIED (3) Pulmonary emboli Status: Ruled-out Code(s): I26.99 - OTHER PULMONARY EMBOLISM WITHOUT ACUTE COR PULMONALE - Discharge Discharge Date: 11/01/20 Disposition: HOME HEALTH SERVICE Condition: Stable Prescriptions: Continue Quetiapine Fumarate 100 mg [Seroquel 100 MG] 150 mg PO HS Clonazepam [Klonopin] 1 mg PO TID PRN PRN Reason: Anxiety Amlodipine Besylate 10 mg [Norvasc 10 MG] 10 mg PO HS Budesonide/Formoterol Fumarate [Budesonide-Formoterol 160-4.5] 2 puffs IH BID PANTOPRAZOLE 40 mg Tablet [Protonix 40MG Tablet] 40 mg PO DAILY Metoprolol Tartrate 25 mg [Lopressor 25MG Tab] 25 mg PO BID Buspirone HCl [Buspar] 10 mg PO BID Lisinopril/Hydrochlorothiazide [Lisinopril-Hctz 20-25 mg Tab] 1 each PO DAILY Risperidone [Risperdal] 2 mg PO BID Instructions: Shortness of Breath (Dyspnea) (DC) Follow up with: GARY LOMBARDI MD [Primary Care Provider] - 11/08/20 3:15 pm Forms: Discharge Instructions
== END 2020-11-01 13:20 | disposition home health service (06) ==
LOC: ED 10:02 → MED SURG 13:45
PROVIDERS: ADMIT General Practice; ATTEND General Practice
DX: E87.2 Acidosis (principal); D72.829 Elevated white blood cell count, unspecified; I26.99 Other pulmonary embolism without acute cor pulmonale; Z79.899 Other long term (current) drug therapy; R00.0 Tachycardia, unspecified; I10 Essential (primary) hypertension
CPT/HCPCS: 0241U; 36000; 36415; 71045; 71260; 80053; 80307; 81001; 83605; 83735; 83880; 84443; 84484; 85025; 85379; 87040; 87077; 93005; 93041; 93268; 94640; 94760; 96360; 96361; 96365; 96367; 96372; 99285; G0378; J1650; A9270-GY; G0480; J3370

== ENCOUNTER 2021-01-22 20:01 | Observation (INO) | payer OTHER ==
[2021-01-22 21:19] LABS: Absolute Neutrophil Ct (ANC) 8.28 (1.4-6.9); BASOPHIL % 0.3 % (0.0-0.4); Basophil (Absolute #) 0.03 (0-0.4); Eosinophil % 2.1 % (0.00-5.0); Eosinophil (Absolute #) 0.23 (0-0.5); Hematocrit 37.3 % (42-50); Hemoglobin 11.8 gm/dl (12.5-18.0); Lymphocyte (Absolute #) 0.95 (1.0-4.6); Lymphocytes % 8.8 % (24.0-44.0); Mean Cell Volume 92.3 fl (78-100); Mean Corpuscular Hemoglobin 29.2 pg (26-32); Mean Corpuscular Hgb Concent. 31.6 g/dl (32-36); Mean Platelet Volume 9.5 fl (7.5-11.0); Monocyte (Absolute #) 1.32 (0.0-1.3); Monocytes % 12.2 % (0.0-12.0); Neutrophil % 76.6 % (36.0-66.0); Platelet Count 256 K/mm3 (150-450); Red Blood Count 4.04 M/mm3 (4.1-5.6); Red Cell Distribution Width 13.1 % (11.5-14.0); White Blood Count 10.8 K/mm3 (4.0-10.5)
[2021-01-22 21:37] LABS: ALBUMIN 4.1 g/dL (3.5-5.0); ANION GAP 12.9 MEQ/L (5-15); BILIRUBIN,TOTAL 0.2 mg/dL (0.2-1.3); Calcium 8.8 mg/dL (8.4-10.2); Creatinine 1 1.29 mg/dL (0.66-1.25); Potassium 4.2 mmol/L (3.5-5.1)
[2021-01-22 21:47] LABS: Amphetamine,Urine NEGATIVE (NEGATIVE); Barbiturate,Urine NEGATIVE (NEGATIVE); Benzodiazepine,Urine NEGATIVE (NEGATIVE); Cocaine,Urine NEGATIVE (NEGATIVE); Methadone,Urine NEGATIVE (NEGATIVE); Opiate,Urine NEGATIVE (NEGATIVE); PCP,Urine NEGATIVE (NEGATIVE); THC,Urine NEGATIVE (NEGATIVE)
--- NOTE | 2021-01-22 22:33 | ERPHSYRPT ---
- History of Present Illness Source: patient, EMS Exam Limitations: other (Very poor historian) Patient Subjective Stated Complaint: pt c/o seeing bugs in his apartment in his bed. Pt states, "yea, I think I have bedbugs". Pt has hx of paranoid schizophrenia, has been out of his Klonopin x1 week. Pt's neighbor called EMS. Triage Nursing Assessment: Pt c/o seeing bugs in his apartment in his bed. Pt states, "yea, I think I have bedbugs". Pt denies headache. Pt has hx of paranoid schizophrenia, has been out of his Klonopin x1 week. Pt's neighbor called EMS. Physician History: 65yo dishevelled wm brought to ER by EMS for visual hallucinations. Pt is a schizophrenic who will only tell me that he has a MEJIA. He denies trauma/Has a go od airway/Moves all 4 extremities. Timing/Duration: today Severity of Symptoms-Max: moderate Severity of Symptoms-Current: moderate Context related to: other (Unknown) Associated Symptoms: denies symptoms Previous symptoms: same symptoms as today Allergies/Adverse Reactions: No Known Drug Allergies Allergy (Verified 01/22/21 20:31) Home Medications: Clonazepam [Klonopin] 1 mg PO TID PRN 11/10/16 [History] Quetiapine Fumarate 100 mg [Seroquel 100 MG] 150 mg PO HS 11/10/16 [History] Amlodipine Besylate 10 mg [Norvasc 10 MG] 10 mg PO HS 04/17/18 [History] Budesonide/Formoterol Fumarate [Budesonide-Formoterol 160-4.5] 2 puffs IH BID 01/14/20 [History] PANTOPRAZOLE 40 mg Tablet [Protonix 40MG Tablet] 40 mg PO DAILY 04/21/20 [History] Buspirone HCl [Buspar] 10 mg PO BID 10/31/20 [History] Lisinopril/Hydrochlorothiazide [Lisinopril-Hctz 20-25 mg Tab] 1 each PO DAILY 10/31/20 [History] Metoprolol Tartrate 25 mg [Lopressor 25MG Tab] 25 mg PO BID 10/31/20 [History] Risperidone [Risperdal] 2 mg PO BID 10/31/20 [History] Hx Tetanus, Diphtheria Vaccination/Date Given: Yes Hx Influenza Vaccination/Date Given: Yes Hx Pneumococcal Vaccination/Date Given: No Immunizations Up to Date: Yes Travel Risk - International Travel Have you traveled outside of the country in past 3 weeks: No - Coronavirus Screening Are you exhibiting any of the following symptoms?: No Close contact with a COVID-19 positive Pt in past 14-21 Days: No - Vaccine Status Have you recieved a Covid-19 vaccination: No - Past Medical History Pertinent Past Medical History: Yes Neurological History: Other ENT History: No Pertinent History Cardiac History: Hypertension Respiratory History: No Pertinent History Endocrine Medical History: No Pertinent History Musculoskeletal History: No Pertinent History GI Medical History: GERD History: No Pertinent History Psycho-Social History: Anxiety, Other Male Reproductive Disorders: No Pertinent History Other Medical History: CP, 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, paranoid schizophrenia - Past Surgical History Past Surgical History: Yes Neuro Surgical History: No Pertinent History Cardiac: No Pertinent History Respiratory: No Pertinent History Gastrointestinal: No Pertinent History Genitourinary: No Pertinent History Musculoskeletal: No Pertinent History Male Surgical History: No Pertinent History Other Surgical History: SKIN CA REMOVED FACE - Social History Smoking Status: Former smoker How long have you smoked: 35 Exposure to second hand smoke: No Alcohol Use: None Drug Use: none Patient Lives Alone: Yes Significant Family History: no pertinent family hx - Review of Systems All Other Systems: Unable due to condition - Nursing Vital Signs Nursing Vital Signs: Initial Vital Signs Temperature 99.2 F 01/22/21 20:04 Pulse Rate 102 H 01/22/21 20:04 Respiratory Rate 18 01/22/21 20:04 Blood Pressure 144/96 01/22/21 20:04 O2 Sat by Pulse Oximetry 100 01/22/21 20:04 Pain Scale Pain Intensity 0 - Physical Exam General Appearance: no apparent distress (Dishevelled), alert Eyes, Ears, Nose, Throat Exam: normal ENT inspection, TMs normal, dry mucous membranes Neck Exam: normal inspection, non-tender, supple, full range of motion, No Brudzinski, No Kernig's, No meningismus Respiratory Exam: normal breath sounds, lungs clear, No respiratory distress Cardiovascular Exam: tachycardia, No murmur Gastrointestinal/Abdominal Exam: soft, normal bowel sounds, No tenderness Extremities Exam: normal inspection, normal range of motion, No evidence of injury, No edema Peripheral Pulses: carotid (R): 2+, carotid (L): 2+, dorsalis-pedis (R): 2+, dorsalis-pedis (L): 2+ Current Suicidality: denies suicide plan Neurological Exam: alert, oriented x 3, responds to pain Appearance: disheveled, impaired insight Behavior/Eye Contact/Speech: alert & cooperative, avoids eye contact Thoughts/Hallucinations: incoherent Skin Exam: warm, dry SpO2 Interpretation: normal SpO2: 98 O2 Delivery: Room Air - Course EKG Interpreted by Me: RATE (NSR/R99/PVC's occ/Normal QT, mildly prolonged Q Tc/No acute ST changes) - Radiology Exams Chest X-ray Interpretation: Interpreted by me (Nothing acute) - CT Exams Head CT Interpretation: Tele-radiologist Report (Nothing acute) Ordered Tests: Active Orders 24 hr Category Date Time Status EKG-ER Only STAT Care 01/22/21 20:52 Active Vieyra [Catheter-[place] Vieyra] STAT Care 01/22/21 21:11 Active CHEST 1 VIEW (PORTABLE) Stat Exams 01/22/21 20:52 Taken HEAD WITHOUT CONTRAST [CT] Stat Exams 01/22/21 22:26 Taken Alcohol [ETHYL ALCOHOL] Stat Lab 01/22/21 21:15 Completed CBC W DIFF Stat Lab 01/22/21 21:15 Completed CMP Stat Lab 01/22/21 21:15 Completed CULTURE,URINE Stat Lab 01/22/21 23:27 Received Lactic Acid Stat Lab 01/22/21 20:53 Completed TROPONIN Q3H Lab 01/22/21 21:15 Completed TROPONIN Q3H Lab 01/23/21 00:00 Ordered TROPONIN Q3H Lab 01/23/21 03:00 Ordered TROPONIN Q3H Lab 01/23/21 06:00 Ordered TROPONIN Q3H Lab 01/23/21 09:00 Ordered UA W/RFX UR CULTURE Stat Lab 01/22/21 23:18 Completed Urine Triage Profile Stat Lab 01/22/21 21:56 Completed Lab/Rad Data: Laboratory Result Diagrams 01/22/21 21:15 01/22/21 21:15 Laboratory Results 01/22/21 01/22/21 01/22/21 Range/Units 23:18 21:56 21:15 WBC (4.0-10.5) K/mm3 RBC (4.1-5.6) M/mm3 Hgb (12.5-18.0) gm/dl Hct (42-50) % MCV (78-100) fl MCH (26-32) pg MCHC (32-36) g/dl RDW (11.5-14.0) % Plt Count (150-450) K/mm3 MPV (7.5-11.0) fl Gran % (36.0-66.0) % Eos # (Auto) (0-0.5) Absolute Lymphs (auto) (1.0-4.6) Absolute Monos (auto) (0.0-1.3) Lymphocytes % (24.0-44.0) % Monocytes % (0.0-12.0) % Eosinophils % (0.00-5.0) % Basophils % (0.0-0.4) % Absolute Granulocytes (1.4-6.9) Basophils # (0-0.4) Sodium (137-145) mmol/L Potassium (3.5-5.1) mmol/L Chloride (98-107) mmol/L Carbon Dioxide (22-30) mmol/L Anion Gap (5-15) MEQ/L BUN (9-20) mg/dL Creatinine (0.66-1.25) mg/dL Estimated GFR ML/MIN Glucose (74-106) mg/dL Lactic Acid (0.4-2.0) Calcium (8.4-10.2) mg/dL Total Bilirubin (0.2-1.3) mg/dL AST (17-59) U/L ALT (0-50) U/L Alkaline Phosphatase (38-126) U/L Troponin I (0.000-0.034) ng/mL Serum Total Protein (6.3-8.2) g/dL Albumin (3.5-5.0) g/dL Urine Color RED (YELLOW) Urine Appearance CLOUDY (CLEAR) Urine pH 7.0 (5-6) Ur Specific [place] 1.015 (1.005-1.025) Urine Protein 100 (Negative) Urine Ketones NEGATIVE (NEGATIVE) Urine Blood LARGE (0-5) Pravin/ul Urine Nitrite NEGATIVE (NEGATIVE) Urine Bilirubin NEGATIVE (NEGATIVE) Urine Urobilinogen NEGATIVE (0-1) mg/dL Ur Leukocyte Esterase NEGATIVE (NEGATIVE) Urine WBC (Auto) 3-5 (0-5) /HPF Urine RBC (Auto) >101 (0-2) /HPF U Epithel Cells (Auto) NONE (FEW) /HPF Urine Bacteria (Auto) RARE (NEGATIVE) /HPF Urine Culture Reflexed ORDERED SEPARATELY (NO) Urine Glucose NEGATIVE (NEGATIVE) mg/dL Urine Opiates Level NEGATIVE (NEGATIVE) Ur Methadone NEGATIVE (NEGATIVE) Urine Barbiturates NEGATIVE (NEGATIVE) Ur Phencyclidine (PCP) NEGATIVE (NEGATIVE) Urine Amphetamine NEGATIVE (NEGATIVE) U Benzodiazepine Level NEGATIVE (NEGATIVE) Urine Cocaine NEGATIVE (NEGATIVE) Urine Marijuana (THC) NEGATIVE (NEGATIVE) Ethyl Alcohol < 10 (0-10) mg/dL 01/22/21 01/22/21 01/22/21 Range/Units 21:15 21:15 21:15 WBC 10.8 H (4.0-10.5) K/mm3 RBC 4.04 L (4.1-5.6) M/mm3 Hgb 11.8 L (12.5-18.0) gm/dl Hct 37.3 L (42-50) % MCV 92.3 (78-100) fl MCH 29.2 (26-32) pg MCHC 31.6 L (32-36) g/dl RDW 13.1 (11.5-14.0) % Plt Count 256 (150-450) K/mm3 MPV 9.5 (7.5-11.0) fl Gran % 76.6 H (36.0-66.0) % Eos # (Auto) 0.23 (0-0.5) Absolute Lymphs (auto) 0.95 L (1.0-4.6) Absolute Monos (auto) 1.32 H (0.0-1.3) Lymphocytes % 8.8 L (24.0-44.0) % Monocytes % 12.2 H (0.0-12.0) % Eosinophils % 2.1 (0.00-5.0) % Basophils % 0.3 (0.0-0.4) % Absolute Granulocytes 8.28 H (1.4-6.9) Basophils # 0.03 (0-0.4) Sodium 138 (137-145) mmol/L Potassium 4.2 (3.5-5.1) mmol/L Chloride 107 (98-107) mmol/L Carbon Dioxide 23 (22-30) mmol/L Anion Gap 12.9 (5-15) MEQ/L BUN 22 H (9-20) mg/dL Creatinine 1.29 H (0.66-1.25) mg/dL Estimated GFR 59.0 ML/MIN Glucose 126 H (74-106) mg/dL Lactic Acid (0.4-2.0) Calcium 8.8 (8.4-10.2) mg/dL Total Bilirubin 0.20 (0.2-1.3) mg/dL AST 21 (17-59) U/L ALT 22 (0-50) U/L Alkaline Phosphatase 72 (38-126) U/L Troponin I < 0.012 (0.000-0.034) ng/mL Serum Total Protein 7.0 (6.3-8.2) g/dL Albumin 4.1 (3.5-5.0) g/dL Urine Color (YELLOW) Urine Appearance (CLEAR) Urine pH (5-6) Ur Specific [place] (1.005-1.025) Urine Protein (Negative) Urine Ketones (NEGATIVE) Urine Blood (0-5) Pravin/ul Urine Nitrite (NEGATIVE) Urine Bilirubin (NEGATIVE) Urine Urobilinogen (0-1) mg/dL Ur Leukocyte Esterase (NEGATIVE) Urine WBC (Auto) (0-5) /HPF Urine RBC (Auto) (0-2) /HPF U Epithel Cells (Auto) (FEW) /HPF Urine Bacteria (Auto) (NEGATIVE) /HPF Urine Culture Reflexed (NO) Urine Glucose (NEGATIVE) mg/dL Urine Opiates Level (NEGATIVE) Ur Methadone (NEGATIVE) Urine Barbiturates (NEGATIVE) Ur Phencyclidine (PCP) (NEGATIVE) Urine Amphetamine (NEGATIVE) U Benzodiazepine Level (NEGATIVE) Urine Cocaine (NEGATIVE) Urine Marijuana (THC) (NEGATIVE) Ethyl Alcohol (0-10) mg/dL 01/22/21 Range/Units 20:53 WBC (4.0-10.5) K/mm3 RBC (4.1-5.6) M/mm3 Hgb (12.5-18.0) gm/dl Hct (42-50) % MCV (78-100) fl MCH (26-32) pg MCHC (32-36) g/dl RDW (11.5-14.0) % Plt Count (150-450) K/mm3 MPV (7.5-11.0) fl Gran % (36.0-66.0) % Eos # (Auto) (0-0.5) Absolute Lymphs (auto) (1.0-4.6) Absolute Monos (auto) (0.0-1.3) Lymphocytes % (24.0-44.0) % Monocytes % (0.0-12.0) % Eosinophils % (0.00-5.0) % Basophils % (0.0-0.4) % Absolute Granulocytes (1.4-6.9) Basophils # (0-0.4) Sodium (137-145) mmol/L Potassium (3.5-5.1) mmol/L Chloride (98-107) mmol/L Carbon Dioxide (22-30) mmol/L Anion Gap (5-15) MEQ/L BUN (9-20) mg/dL Creatinine (0.66-1.25) mg/dL Estimated GFR ML/MIN Glucose (74-106) mg/dL Lactic Acid 1.3 (0.4-2.0) Calcium (8.4-10.2) mg/dL Total Bilirubin (0.2-1.3) mg/dL AST (17-59) U/L ALT (0-50) U/L Alkaline Phosphatase (38-126) U/L Troponin I (0.000-0.034) ng/mL Serum Total Protein (6.3-8.2) g/dL Albumin (3.5-5.0) g/dL Urine Color (YELLOW) Urine Appearance (CLEAR) Urine pH (5-6) Ur Specific [place] (1.005-1.025) Urine Protein (Negative) Urine Ketones (NEGATIVE) Urine Blood (0-5) Pravin/ul Urine Nitrite (NEGATIVE) Urine Bilirubin (NEGATIVE) Urine Urobilinogen (0-1) mg/dL Ur Leukocyte Esterase (NEGATIVE) Urine WBC (Auto) (0-5) /HPF Urine RBC (Auto) (0-2) /HPF U Epithel Cells (Auto) (FEW) /HPF Urine Bacteria (Auto) (NEGATIVE) /HPF Urine Culture Reflexed (NO) Urine Glucose (NEGATIVE) mg/dL Urine Opiates Level (NEGATIVE) Ur Methadone (NEGATIVE) Urine Barbiturates (NEGATIVE) Ur Phencyclidine (PCP) (NEGATIVE) Urine Amphetamine (NEGATIVE) U Benzodiazepine Level (NEGATIVE) Urine Cocaine (NEGATIVE) Urine Marijuana (THC) (NEGATIVE) Ethyl Alcohol (0-10) mg/dL - Progress Progress Note: 01/22/21 23:[address] Lombardi for mental status changes. Discussed with : Lizandro Counseled pt/family regarding: lab results, diagnosis, rad results - Departure Departure Disposition: Observation Clinical Impression: Altered mental status Condition: Stable Critical Care Time: No Referrals: GARY LOMBARDI MD [Primary Care Provider] -
[2021-01-22 23:38] LABS: Appearance CLOUDY (CLEAR); Bacteria RARE /HPF (NEGATIVE); Bilirubin NEGATIVE (NEGATIVE); Blood LARGE Ery/ul (0-5); Glucose NEGATIVE (NEGATIVE); Ketones NEGATIVE (NEGATIVE); Leukocyte Esterase NEGATIVE (NEGATIVE); Nitrite NEGATIVE (NEGATIVE); Protein,Urine Dip 100 (Negative); RBC >101 /HPF (0-2); Specific Gravity 1.015 (1.005-1.025); Urobilinogen NEGATIVE mg/dL (0-1)
[2021-01-23] MEDS ORDERED: Zofran 4 MG/2 ML VIAL IV PRN (00:07)
[2021-01-23 00:41] LABS: INFLUENZA A NEGATIVE (NEGATIVE); INFLUENZA B NEGATIVE (NEGATIVE); RESPIRATORY SYNCTIAL VIRUS NEGATIVE (Negative)
[2021-01-23] MEDS: Sodium Chloride 0.9% 1000 ML 1,000 ML IV SCH ×2 (00:43→12:13)
[2021-01-23 02:35] LABS: Absolute Neutrophil Ct (ANC) 15.83 (1.4-6.9); BASOPHIL % 0.1 % (0.0-0.4); Basophil (Absolute #) 0.02 (0-0.4); Eosinophil % 0.6 % (0.00-5.0); Eosinophil (Absolute #) 0.12 (0-0.5); Hematocrit 37.1 % (42-50); Hemoglobin 11.6 gm/dl (12.5-18.0); Lymphocyte (Absolute #) 1.04 (1.0-4.6); Lymphocytes % 5.6 % (24.0-44.0); Mean Cell Volume 92.8 fl (78-100); Mean Corpuscular Hgb Concent. 31.3 g/dl (32-36); Mean Platelet Volume 9.4 fl (7.5-11.0); Monocyte (Absolute #) 1.72 (0.0-1.3); Monocytes % 9.2 % (0.0-12.0); Neutrophil % 84.5 % (36.0-66.0); Platelet Count 269 K/mm3 (150-450); Red Cell Distribution Width 13.3 % (11.5-14.0); White Blood Count 18.7 K/mm3 (4.0-10.5)
[2021-01-23 02:47] LABS: ALBUMIN 3.9 g/dL (3.5-5.0); ALKALINE PHOSPHATASE 67 U/L (38-126); ANION GAP 12.9 MEQ/L (5-15); BLOOD UREA NITROGEN 21 mg/dL (9-20); CHLORIDE 107 mmol/L (98-107); Calcium 8.6 mg/dL (8.4-10.2); Carbon Dioxide 22 mmol/L (22-30); Creatinine 1 1.21 mg/dL (0.66-1.25); EST GLOMERULAR FILTRATION RATE > 60.0 ML/MIN; Glucose 151 mg/dL (74-106); SGOT/AST 18 U/L (17-59); SGPT/ALT 21 U/L (0-50); SODIUM 138 mmol/L (137-145); Total Protein 6.6 g/dL (6.3-8.2)
[2021-01-23] MEDS ORDERED: Narcan 0.4 MG/ML IV PRN (02:53)
[2021-01-23] MEDS ORDERED: BENADRYL 50 MG/ML IV PRN (02:53)
[2021-01-23] MEDS ORDERED: CLARITIN 10 MG PO PRN (02:53)
[2021-01-23] MEDS ORDERED: PERCOCET TABLET 5/325MG PO PRN (02:53)
[2021-01-23] MEDS ORDERED: DEMEROL 50 MG IV PRN (02:53)
[2021-01-23] MEDS ORDERED: HOLD NARCOTIC ANALGESICS AND SEDATIVES X24 HR MC PRN (02:53)
[2021-01-23] MEDS ORDERED: Nubain 10 MG/ML IV PRN (02:53)
[2021-01-23] MEDS ORDERED: MORPHINE SULFATE 2 MG INJ IV PRN (02:53)
[2021-01-23] MEDS ORDERED: Sodium Chloride 0.9% 10 ML FLUSH Syringe IJ PRN (02:53)
--- NOTE | 2021-01-23 09:22 | XRAY ---
Indication: Left frontal head injury following fall. Headache. Multiple contiguous axial images obtained through the head without contrast. Comparison: January 13, 2020. 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 No acute intracranial hemorrhage, hydrocephalus, or mass effect. Fourth ventricle is midline. Beltran-white matter differentiation maintained. Bony calvarium intact. Visualized paranasal sinuses and mastoid air cells are clear. 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 No new/acute intracranial abnormalities. Comment: Preliminary interpretation was made by [facility]. No critical discrepancy.
[2021-01-23] MEDS ORDERED: KEFZOL 1 GM/50 ML PREMIX** 1 GM/50 ML IVPB IV SCH (09:30)
--- NOTE | 2021-01-23 09:30 | XRAY ---
Indication: Lethargy. Comparison: October 31, 2020. Portable chest again demonstrates normal heart and lungs with incidental mediastinal/right lung calcified granulomas. Bony thorax intact. No new/acute findings.
--- NOTE | 2021-01-23 09:30 | XRAY ---
Indication: Lower abdomen pain and gross hematuria. Multiple contiguous axial images obtained through the abdomen and pelvis using 80 cc Isovue 370 contrast. Comparison: April 21, 2020. Study is degraded by respiration artifact throughout. Lung bases demonstrates new right base dependent atelectasis and tiny calcified granuloma. Heart is not enlarged. Stable small hiatal hernia. Noncontrasted stomach and bowel loops nonobstructed again with small duodenal diverticulum. Appendix not seen. There remains mild diffuse scattered colonic fecal debris with new mild rectal impaction. Urinary bladder is now markedly distended either due to outlet obstructive versus neurogenic bladder. Again incidental enlarged prostate gland impresses on the base of the bladder. Also new urinary bladder intraluminal air either echogenic versus gas-forming bacterial infection. New Vieyra catheter with balloon tip in base of the penis. Tiny contrast seen adjacent to the balloon tip concerning for contrast extravasation versus active bleed. No free fluid/air. Remaining liver, gallbladder, pancreas, spleen, adrenal glands, kidneys, and ureters are unremarkable. There remains mild scattered aortoiliac calcifications. No AAA or pathologic retroperitoneal lymphadenopathy. Osseous structures intact again with mild degenerative changes throughout the thoracolumbar spine. Impression: 1. Respiration artifact. 2. Malpositioned Vieyra balloon catheter as detailed. Contrast adjacent to balloon tip either contrast extravasation versus bleed. 3. Markedly distended urinary bladder. Rule out outlet obstruction versus neurogenic bladder. Also intra-abdominal air either iatrogenic versus gas-forming bacterial infection. 4. Again mild diffuse fecal stasis with now rectal impaction. 5. Stable incidental small hiatal hernia, duodenal diverticulum, enlarged prostate gland, and chronic bony findings. Comment: Preliminary interpretation was made by [facility]. No critical discrepancy.
[2021-01-23] MEDS ORDERED: PROTONIX 40 MG IV IV SCH (10:00)
[2021-01-23] MEDS ORDERED: Zocor 10MG PO SCH (10:00)
[2021-01-23] MEDS ORDERED: ENOXAPARIN SODIUM SQ SCH (10:00)
[2021-01-23] MEDS ORDERED: Paxil 20 MG PO SCH (10:00)
[2021-01-23] MEDS ORDERED: celeBREX 100 MG PO SCH (10:00)
[2021-01-23 10:02] VITALS: O2SAT 96
[2021-01-23 11:53] VITALS: BP 111/66; PULSE 86
--- NOTE | 2021-01-24 07:48 | PCM.SSS ---
History of Present Illness - Chief Complaint Chief Complaint: altered mental status History of Present Illness: is a 65 year old male.c/o seeing bugs in his apartment in his bed. Pt states, "yea, I think I have bedbugs". Pt denies headache. Pt has hx of paranoid schizophrenia, has been out of his Klonopin x1 week. Pt is a schizophrenic who will only tell me that he has a MEJIA. He denies trauma/Has a good airway/Moves all 4 extremities. Timing/Duration: today Severity of Symptoms-Max: moderate Severity of Symptoms-Current: moderate Context related to: other (Unknown) Associated Symptoms: denies symptoms Previous symptoms: same symptoms as today - Review of Systems Constitutional: No Fever, No Chills Eyes: No Symptoms Ears, Nose, & Throat: No Symptoms Respiratory: No Cough, No Short Of Breath Cardiac: No Chest Pain, No Edema, No Syncope Abdominal/Gastrointestinal: No Abdominal Pain, No Nausea, No Vomiting, No Diarrhea Genitourinary Symptoms: No Dysuria Musculoskeletal: No Back Pain, No Neck Pain Skin: No Rash Neurological: Headache, No Dizziness, No Focal Weakness, No Sensory Changes Psychological: Hallucinations Endocrine: No Symptoms Hematologic/Lymphatic: No Symptoms Immunological/Allergic: No Symptoms Medications & Allergies Home Medications: Home Medication List Clonazepam [Klonopin] 1 mg PO TID PRN 11/10/16 [History Confirmed 01/22/21] Quetiapine Fumarate 100 mg [Seroquel 100 MG] 150 mg PO HS 11/10/16 [History Confirmed 01/22/21] Amlodipine Besylate 10 mg [Norvasc 10 MG] 10 mg PO HS 04/17/18 [History Confirmed 01/22/21] Budesonide/Formoterol Fumarate [Budesonide-Formoterol 160-4.5] 2 puffs IH BID 01/14/20 [History Confirmed 01/22/21] PANTOPRAZOLE 40 mg Tablet [Protonix 40MG Tablet] 40 mg PO DAILY 04/21/20 [History Confirmed 01/22/21] Buspirone HCl [Buspar] 10 mg PO BID 10/31/20 [History Confirmed 01/22/21] Lisinopril/Hydrochlorothiazide [Lisinopril-Hctz 20-25 mg Tab] 1 each PO DAILY 10/31/20 [History Confirmed 01/22/21] Metoprolol Tartrate 25 mg [Lopressor 25MG Tab] 25 mg PO BID 10/31/20 [History Confirmed 01/22/21] Risperidone [Risperdal] 2 mg PO BID 10/31/20 [History Confirmed 01/22/21] Allergies/Adverse Reactions: Allergies Allergy/AdvReac Type Severity Reaction Status Date / Time No Known Drug Allergies Allergy Verified 01/22/21 20:31 - Past Medical History Past Medical History: Yes Neurological History: Other ENT History: No Pertinent History Cardiac History: Hypertension Respiratory History: No Pertinent History Endocrine Medical History: No Pertinent History Musculoskelatal History: No Pertinent History GI Medical History: GERD History: No Pertinent History Pyscho-Social History: Anxiety, Other Male Reproductive Disorders: No Pertinent History Comment: CP, 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, paranoid schizophrenia - Past Surgical History Past Surgical History: Yes Neuro Surgical History: No Pertinent History Cardiac History: No Pertinent History Respiratory Surgery: No Pertinent History GI Surgical History: No Pertinent History Genitourinary Surgical Hx: No Pertinent History Musculskeletal Surgical Hx: No Pertinent History Male Surgical History: No Pertinent History Other Surgical History: SKIN CA REMOVED FACE - Social History Smoking Status: Former smoker How long have you smoked: 35 Exposure to second hand smoke: No Alcohol: None Drug Use: none Significant Family History: no pertinent family hx - Physical Exam Vital Signs: Vital Signs - 24 hr Pulse BP Pulse Ox 01/23/21 11:51 86 111/66 01/23/21 11:00 81 111/57 01/23/21 10:00 84 104/57 96 01/23/21 08:58 84 112/59 94 L 01/23/21 08:01 87 104/55 94 L General Appearance: no apparent distress, alert 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, oriented x 3, cooperative, normal mood/affect, nml cerebellar function, nml station & gait, sensation nml, No motor deficits Eye Exam: PERRL/EOMI, eyes nml inspection Ears, Nose, Throat Exam: normal ENT inspection, TMs normal, pharynx normal, moist mucous membranes Neck Exam: normal inspection, non-tender, supple, full range of motion Respiratory Exam: normal breath sounds, lungs clear, No respiratory distress Cardiovascular Exam: regular rate/rhythm, normal heart sounds, normal peripheral pulses Gastrointestinal/Abdomen Exam: soft, normal bowel sounds, No tenderness, No mass Back Exam: normal inspection, normal range of motion, No CVA tenderness, No vertebral tenderness Extremity Exam: normal inspection, normal range of motion, pelvis stable Skin Exam: normal color, warm, dry, ecchymosis (pelvic region area), No rash Wound Assessment: Skin/Wound Assessment Wound/Incision Assessment Start: 01/23/21 03:59 Text: Status: Active Freq: Q6H Protocol: Document 01/23/21 08:43 KARINA (Rec: 01/23/21 08:43 KARINA [id number]) Wound Photo Photo Taken No Lymphatic Exam: No adenopathy Results - Radiology Impressions Radiology Exams & Impressions: Radiology Procedures Category Date Time Status ABDOMEN AND PELVIS W CONTRAST [CT] Stat Exams 01/23/21 02:19 Completed CHEST 1 VIEW (PORTABLE) Stat Exams 01/22/21 20:52 Completed HEAD WITHOUT CONTRAST [CT] Stat Exams 01/22/21 22:[address]/ABDOMEN AND PELVIS W CONTRAST Indication: Lower abdomen pain and gross hematuria. Multiple contiguous axial images obtained through the abdomen and pelvis using 80 cc Isovue 370 contrast. Comparison: April 21, 2020. Study is degraded by respiration artifact throughout. Lung bases demonstrates new right base dependent atelectasis and tiny calcified granuloma. Heart is not enlarged. Stable small hiatal hernia. Noncontrasted stomach and bowel loops nonobstructed again with small duodenal diverticulum. Appendix not seen. There remains mild diffuse scattered colonic fecal debris with new mild rectal impaction. Urinary bladder is now markedly distended either due to outlet obstructive versus neurogenic bladder. Again incidental enlarged prostate gland impresses on the base of the bladder. Also new urinary bladder intraluminal air either echogenic versus gas-forming bacterial infection. New Salcido catheter with balloon tip in base of the penis. Tiny contrast seen adjacent to the balloon tip concerning for contrast extravasation versus active bleed. No free fluid/air. Remaining liver, gallbladder, pancreas, spleen, adrenal glands, kidneys, and ureters are unremarkable. There remains mild scattered aortoiliac calcifications. No AAA or pathologic retroperitoneal lymphadenopathy. Osseous structures intact again with mild degenerative changes throughout the thoracolumbar spine. Impression: 1. Respiration artifact. 2. Malpositioned Salcido balloon catheter as detailed. Contrast adjacent to balloon tip either contrast extravasation versus bleed. 3. Markedly distended urinary bladder. Rule out outlet obstruction versus neurogenic bladder. Also intra-abdominal air either iatrogenic versus gas-forming bacterial infection. 4. Again mild diffuse fecal stasis with now rectal impaction. 5. Stable incidental small hiatal hernia, duodenal diverticulum, enlarged prostate gland, and chronic bony findings. Assessment/Plan (1) Displacement of Salcido catheter Status: Acute Qualifiers: Encounter type: initial encounter Qualified Code(s): T83.021A - Disp lacement of indwelling urethral catheter, initial encounter Assessment & Plan: Chief Complaint Diagnosis altered mental status Allergies Allergy/AdvReac Type Severity Reaction Status Date / Time No Known Drug Allergies Allergy Verified 01/22/21 20:31 Vital Signs (Last 24 hours) Pulse BP Pulse Ox 01/23/21 11:51 86 111/66 01/23/21 11:00 81 111/57 01/23/21 10:00 84 104/57 96 01/23/21 08:58 84 112/59 94 L 01/23/21 08:01 87 104/55 94 L Current Medications Discontinued Medications Generic Name Dose Route Start Last Admin Trade Name Freq PRN Reason Stop Dose Admin Sodium Chloride 1,000 mls @ 80 mls/hr 01/23/21 00:15 01/23/21 12:13 Sodium Chloride 0.9% 1000 Ml IV 02/22/21 00:14 80 mls/hr .[id number] [facility] Administration Ondansetron HCl 4 mg 01/23/21 00:07 Zofran 4 Mg/2 Ml Vial IV 02/22/21 00:06 Q6H PRN PRN NAUSEA/VOMITING Pantoprazole Sodium 40 mg 01/23/21 10:00 01/23/21 09:37 Protonix 40 Mg Iv IV 02/22/21 09:59 40 mg Q24H10 [facility] Administration Intake & Output (Last 24 hours) 01/21/21 01/22/21 01/23/21 01/24/21 11:59 11:59 11:59 11:59 Intake Total 310 Output Total 1679 Balance -1369 Weight 69.9 kg Orders (Last 24 hours) Category Date Time Status Consult Urology ROUTINE Cons 01/23/21 09:20 Active Heart-Healthy Diet Diet 01/23/21 Breakfast Completed NPO Diet 01/23/21 07:37 Completed Pantoprazole 40 mg [Protonix 40 mg IV] Med 01/23/21 10:00 Discontinued 40 mg IV Q24H10 Patient Care Notes (Last 24 hours) 01/23/21 11:04 Case Management Note by Jodi Sullivan S/W [employer] [facility]- SHE WAS NOTIFIED PATIENT WILL BE TRANSFERRING TO [facility]. SHE REPORTS SHE FEELS PATIENT NEEDS INPT PSYCH HELP D/T ANXIETY. SHE REPORTS HE GETS ANXIOUS AT HOME THEN TAKES A EXTRA MEDS RATHER IT BE ANXIETY MEDS OR HTN MEDS. THEN HE RUNS OUT OF MEDS PRIOR TO TIME OF REFILL. SHE FEELS HIS PSYCH MEDS NEED ADJUSTED SO HE NO LONGER DOES THIS. SHE WILL BE NOTIFIED WHEN PATIENT DCS TO [facility] SO SHE CAN FOLLOW UP AT THAT FACILITY. HER PHONE NUMBER IS [phone] Initialized on 01/23/21 11:04 - END OF NOTE 01/23/21 10:40 Case Management Note by Corinne Rainey CALL TO [facility] PER DR. LOMBARDI ORDER TO TRANSFER PT FOR UROLOGY. TRANSFER CENTER WILL CALL HOSPITALIST AND THEY WILL BE IN TOUCH WITH DR. LOMBARDI. Initialized on 01/23/21 10:40 - END OF NOTE 01/23/21 10:05 Nursing Note by Baylee Rashid dr. on phone to discuss pt care. he recommendations are to continue close monitoring of uop with manual irrigation of salcido when needed. if clots become too severe may need to start bladder irrigation setup (carlos smith). he is ok with pt staying at [facility] but will accept pt for transfer if needed. Initialized on 01/23/21 10:05 - END OF NOTE 01/23/21 09:30 (created 01/23/21 09:48) Nursing Note by Baylee Rashid dr.'s office called and notified of consult. dr. joe is in office today and will be reading ct report. ct report faxed to office. Initialized on 01/23/21 09:48 - END OF NOTE 01/23/21 09:10 (created 01/23/21 09:52) Nursing Note by Baylee Rashid dr. on phone and updated. new order to consult dr. casnaova. Initialized on 01/23/21 09:52 - END OF NOTE 01/23/21 09:00 (created 01/23/21 09:49) Nursing Note by Baylee Rashid only 5cc uop for last hour. salcido irrigated with 15cc sterile saline. and multiple large clots evacuated. urine now flowing and 80cc out. Initialized on 01/23/21 09:49 - END OF NOTE Code(s): T83.021A - DISPLACEMENT OF INDWELLING URETHRAL CATHETER, INIT (2) Abdominal pain Status: Acute Qualifiers: Abdominal location: right lower quadrant Qualified Code(s): R10.31 - Right lower quadrant pain Code(s): R10.9 - UNSPECIFIED ABDOMINAL PAIN (3) Altered mental status Status: Acute Code(s): R41.82 - ALTERED MENTAL STATUS, UNSPECIFIED Hospital Summary - Hospital Course Hospital Course: Last Vital Signs Temp 98.3 F 01/23/21 07:22 Pulse 86 01/23/21 11:51 Resp 18 01/23/21 07:22 BP 111/66 01/23/21 11:51 Pulse Ox 96 01/23/21 10:00 Allergies No Known Drug Allergies Allergy (Verified 01/22/21 20:31) Intake & Output 01/23/21 01/24/21 11:59 11:59 Intake Total 310 Output Total 1679 Balance -1369 Weight 69.9 kg Orders 01/23/21 09:20 Consult Urology ROUTINE Chief Complaint Diagnosis altered mental status Allergies Allergy/AdvReac Type Severity Reaction Status Date / Time No Known Drug Allergies Allergy Verified 01/22/21 20:31 Vital Signs (Last 24 hours) Pulse BP Pulse Ox 01/23/21 11:51 86 111/66 01/23/21 11:00 81 111/57 01/23/21 10:00 84 104/57 96 01/23/21 08:58 84 112/59 94 L 01/23/21 08:01 87 104/55 94 L Current Medications Discontinued Medications Generic Name Dose Route Start Last Admin Trade Name Freq PRN Reason Stop Dose Admin Sodium Chloride 1,000 mls @ 80 mls/hr 01/23/21 00:15 01/23/21 12:13 Sodium Chloride 0.9% 1000 Ml IV 02/22/21 00:14 80 mls/hr .[id number] [facility] Administration Ondansetron HCl 4 mg 01/23/21 00:07 Zofran 4 Mg/2 Ml Vial IV 02/22/21 00:06 Q6H PRN PRN NAUSEA/VOMITING Pantoprazole Sodium 40 mg 01/23/21 10:00 01/23/21 09:37 Protonix 40 Mg Iv IV 02/22/21 09:59 40 mg Q24H10 [facility] Administration Intake & Output (Last 24 hours) 01/21/21 01/22/21 01/23/21 01/24/21 11:59 11:59 11:59 11:59 Intake Total 310 Output Total 1679 Balance -1369 Weight 69.9 kg Orders (Last 24 hours) Category Date Time Status Consult Urology ROUTINE Cons 01/23/21 09:20 Active Heart-Healthy Diet Diet 01/23/21 Breakfast Completed NPO Diet 01/23/21 07:37 Completed Pantoprazole 40 mg [Protonix 40 mg IV] Med 01/23/21 10:00 Discontinued 40 mg IV Q24H10 Patient Care Notes (Last 24 hours) 01/23/21 11:04 Case Management Note by Jodi Sullivan S/W [employer] M[employer]INE O[employer] [facility]- SHE WAS NOTIFIED PATIENT WILL BE TRANSFERRING TO [facility]. SHE REPORTS SHE FEELS PATIENT NEEDS INPT PSYCH HELP D/T ANXIETY. SHE REPORTS HE GETS ANXIOUS AT HOME THEN TAKES A EXTRA MEDS RATHER IT BE ANXIETY MEDS OR HTN MEDS. THEN HE RUNS OUT OF MEDS PRIOR TO TIME OF REFILL. SHE FEELS HIS PSYCH MEDS NEED ADJUSTED SO HE NO LONGER DOES THIS. SHE WILL BE NOTIFIED WHEN PATIENT DCS TO [facility] SO SHE CAN FOLLOW UP AT THAT FACILITY. HER PHONE NUMBER IS [phone] Initialized on 01/23/21 11:04 - END OF NOTE 01/23/21 10:40 Case Management Note by Corinne Rainey CALL TO [facility] PER DR. LOMBARDI ORDER TO TRANSFER PT FOR UROLOGY. TRANSFER CENTER WILL CALL HOSPITALIST AND THEY WILL BE IN TOUCH WITH DR. LOMBARDI. Initialized on 01/23/21 10:40 - END OF NOTE 01/23/21 10:05 Nursing Note by Baylee Rashid dr. on phone to discuss pt care. he recommendations are to continue close monitoring of uop with manual irrigation of salcido when needed. if clots become too severe may need to start bladder irrigation setup (carlos smith). he is ok with pt staying at [facility] but will accept pt for transfer if needed. Initialized on 01/23/21 10:05 - END OF NOTE 01/23/21 09:30 (created 01/23/21 09:48) Nursing Note by Baylee Rashid dr.'s office called and notified of consult. dr. joe is in office today and will be reading ct report. ct report faxed to office. Initialized on 01/23/21 09:48 - END OF NOTE 01/23/21 09:10 (created 01/23/21 09:52) Nursing Note by Baylee Rashid dr. on phone and updated. new order to consult dr. casanova. Initialized on 01/23/21 09:52 - END OF NOTE 01/23/21 09:00 (created 01/23/21 09:49) Nursing Note by Baylee Rashid only 5cc uop for last hour. salcido irrigated with 15cc sterile saline. and multiple large clots evacuated. urine now flowing and 80cc out. Initialized on 01/23/21 09:49 - END OF NOTE - Vitals & Intake/Output Vital Signs: Vital Signs Temperature 98.3 F 01/23/21 07:22 Pulse Rate 86 01/23/21 11:51 Respiratory Rate 18 01/23/21 07:22 Blood Pressure 111/66 01/23/21 11:51 O2 Sat by Pulse Oximetry 96 01/23/21 10:00 Intake & Output: Intake & Output 01/21/21 01/22/21 01/23/21 01/24/21 11:59 11:59 11:59 11:59 Intake Total 310 Output Total 1679 Balance -1369 Weight 69.9 kg - Lab Result Diagrams: 01/23/21 02:32 01/23/21 02:32 - Radiology Exams Ordered Rad Exams-Entire Visit: Radiology Procedures Category Date Time Status ABDOMEN AND PELVIS W CONTRAST [CT] Stat Exams 01/23/21 02:19 Completed CHEST 1 VIEW (PORTABLE) Stat Exams 01/22/21 20:52 Completed HEAD WITHOUT CONTRAST [CT] Stat Exams 01/22/21 22:26 Completed - Discharge Discharge Date: 01/23/21 [facility] Condition: Stable Prescriptions: No Action Quetiapine Fumarate 100 mg [Seroquel 100 MG] 150 mg PO HS Clonazepam [Klonopin] 1 mg PO TID PRN PRN Reason: Anxiety Amlodipine Besylate 10 mg [Norvasc 10 MG] 10 mg PO HS Budesonide/Formoterol Fumarate [Budesonide-Formoterol 160-4.5] 2 puffs IH BID PANTOPRAZOLE 40 mg Tablet [Protonix 40MG Tablet] 40 mg PO DAILY Metoprolol Tartrate 25 mg [Lopressor 25MG Tab] 25 mg PO BID Buspirone HCl [Buspar] 10 mg PO BID Lisinopril/Hydrochlorothiazide [Lisinopril-Hctz 20-25 mg Tab] 1 each PO DAILY Risperidone [Risperdal] 2 mg PO BID Follow up with: GARY LOMBARDI MD [Primary Care Provider] -
== END 2021-01-23 13:04 | disposition short-term general hospital (02) ==
LOC: ED 20:01 → MED SURG 01-23 01:12
PROVIDERS: ADMIT General Practice; ATTEND General Practice
DX: T83.021A Displacement of indwelling urethral catheter, initial encounter (principal); R41.82 Altered mental status, unspecified; R51.9 Headache, unspecified; Z79.899 Other long term (current) drug therapy; I10 Essential (primary) hypertension; R10.31 Right lower quadrant pain; Z20.828 Contact with and (suspected) exposure to other viral communicable diseases; F20.0 Paranoid schizophrenia
CPT/HCPCS: 0241U; 36000; 36415; 51702; 70450; 71045; 74177; 80053; 80307; 81001; 83605; 84134; 84484; 85025; 87086; 93005; 99285; G0378; G0480

== ENCOUNTER 2021-04-21 18:45 | Emergency (ER) | payer MEDICAID, OTHER ==
[2021-04-21 19:01] VITALS: O2SAT 99
--- NOTE | 2021-04-21 19:08 | ERPHSYRPT ---
- History of Present Illness Time Seen by Provider: 04/21/21 18:59 Patient Subjective Stated Complaint: abd pain, nausea 30 min block captain Triage Nursing Assessment: pt to ED by EMS c/o abd pain and nausea onset 30 min block captain while eating supper. pt has hx stomach ulcers and takes prescribed medication, but can not remember what it is called. also reports having been out of that medication for the last week. rates 9/10 dull pain to mid abd that does not radiate. no emesis at this time. denies urinary or bowel issues. abd non tender, bs active in all quads. Physician History: Patient is a 66-year-old male presents to our ED via EMS for evaluation of abdominal pain. Abdominal pain started approximately 30 minutes prior to arrival after eating. Patient has a history of stomach ulcers. Patient describes his pain as an ache that is well localized. No radiation. No sign ificant worsening improving factors. Patient rates pain at 9 out of 10. No radiation. No associated fever. No nausea or vomiting. No diarrhea. No rash. Patient denies chest pain or shortness of breath. He voices no other complaints concerns at this time Timing/Duration: today Activities at Onset: other (Postprandial abdominal pain.) Quality: aching Abdominal Pain Onset Location: periumbilical Pain Radiation: no radiation Severity of Pain-Max: moderate Severity of Pain-Current: mild Modifying Factors: Improves With: palpation Associated Symptoms: denies symptoms Previous symptoms: no prior history Allergies/Adverse Reactions: No Known Drug Allergies Allergy (Verified 04/21/21 19:01) Home Medications: Clonazepam [Klonopin] 1 mg PO TID PRN 11/10/16 [History] Quetiapine Fumarate 100 mg [Seroquel 100 MG] 150 mg PO HS 11/10/16 [History] Amlodipine Besylate 10 mg [Norvasc 10 MG] 10 mg PO HS 04/17/18 [History] Budesonide/Formoterol Fumarate [Budesonide-Formoterol 160-4.5] 2 puffs IH BID 01/14/20 [History] PANTOPRAZOLE 40 mg Tablet [Protonix 40MG Tablet] 40 mg PO DAILY 04/21/20 [History] Buspirone HCl [Buspar] 10 mg PO BID 10/31/20 [History] Lisinopril/Hydrochlorothiazide [Lisinopril-Hctz 20-25 mg Tab] 1 each PO DAILY 10/31/20 [History] Metoprolol Tartrate 25 mg [Lopressor 25MG Tab] 25 mg PO BID 10/31/20 [History] Risperidone [Risperdal] 2 mg PO BID 10/31/20 [History] Hx Tetanus, Diphtheria Vaccination/Date Given: Yes Hx Influenza Vaccination/Date Given: Yes Hx Pneumococcal Vaccination/Date Given: No Immunizations Up to Date: Yes Travel Risk - International Travel Have you traveled outside of the country in past 3 weeks: No - Coronavirus Screening Are you exhibiting any of the following symptoms?: No Close contact with a COVID-19 positive Pt in past 14-21 Days: No - Vaccine Status Have you recieved a Covid-19 vaccination: No - Review of Systems Constitutional: No Symptoms, No Fever, No Chills Eyes: No Symptoms Ears, Nose, & Throat: No Symptoms Respiratory: No Symptoms, No Cough, No Dyspnea Cardiac: No Symptoms, No Chest Pain, No Edema, No Syncope Abdominal/Gastrointestinal: No Symptoms, No Abdominal Pain, No Nausea, No Vomiting, No Diarrhea Genitourinary Symptoms: No Symptoms, No Dysuria Musculoskeletal: No Symptoms, No Back Pain, No Neck Pain Skin: No Symptoms, No Rash Neurological: No Symptoms, No Dizziness, No Focal Weakness, No Sensory Changes Psychological: No Symptoms Endocrine: No Symptoms Hematologic/Lymphatic: No Symptoms Immunological/Allergic: No Symptoms All Other Systems: Reviewed and Negative - Past Medical History Pertinent Past Medical History: Yes Neurological History: Other ENT History: No Pertinent History Cardiac History: Hypertension Respiratory History: No Pertinent History Endocrine Medical History: No Pertinent History Musculoskeletal History: No Pertinent History GI Medical History: GERD History: No Pertinent History Psycho-Social History: Anxiety, Other Male Reproductive Disorders: No Pertinent History Other Medical History: CP, 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, paranoid schizophrenia - Past Surgical History Past Surgical History: Yes Neuro Surgical History: No Pertinent History Cardiac: No Pertinent History Respiratory: No Pertinent History Gastrointestinal: No Pertinent History Genitourinary: No Pertinent History Musculoskeletal: No Pertinent History Male Surgical History: No Pertinent History Other Surgical History: SKIN CA REMOVED FACE - Social History Smoking Status: Former smoker How long have you smoked: 35 Exposure to second hand smoke: No Alcohol Use: None Drug Use: none Patient Lives Alone: No (nephew) Significant Family History: no pertinent family hx - Nursing Vital Signs Nursing Vital Signs: Initial Vital Signs Temperature 97.4 F 04/21/21 18:55 Pulse Rate 118 H 04/21/21 18:55 Respiratory Rate 26 H 04/21/21 18:55 Blood Pressure 171/101 04/21/21 18:55 O2 Sat by Pulse Oximetry 99 04/21/21 18:55 Pain Scale Pain Intensity 9 - Physical Exam General Appearance: no apparent distress, alert Eye Exam: PERRL/EOMI, eyes nml inspection Ears, Nose, Throat Exam: normal ENT inspection, pharynx normal, moist mucous membranes Neck Exam: normal inspection, non-tender, supple, full range of motion Respiratory Exam: normal breath sounds, lungs clear, No respiratory distress Cardiovascular Exam: regular rate/rhythm, normal heart sounds Gastrointestinal/Abdomen Exam: soft, No tenderness, No mass Back Exam: normal inspection, normal range of motion, No CVA tenderness, No vertebral tenderness Extremity Exam: normal inspection, normal range of motion, pelvis stable 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, oriented x 3, cooperative, normal mood/affect, sensation nml, No motor deficits Skin Exam: normal color, warm, dry Lymphatic Exam: adenopathy SpO2 Interpretation: normal SpO2: 99 O2 Delivery: Room Air - Course Nursing assessment & vital signs reviewed: Yes EKG Interpreted by Me: RATE ([id number]), Sinus Rhythm, Sinus Tach, NORMAL AXIS, NORMAL INTERVALS - CT Exams Abdomen/Pelvis CT Interpretation: Tele-radiologist Report (Compared to 01/23/2021 normal appendix. Mild diffuse fecal stasis. Otherwise negative abdomen pelvis.) Ordered Tests: Active Orders 24 hr Category Date Time Status EKG-ER Only STAT Care 04/21/21 19:14 Active IV Insertion STAT Care 04/21/21 19:14 Active ABDOMEN AND PELVIS W CONTRAST [CT] Stat Exams 04/21/21 19:15 Taken CBC W DIFF Stat Lab 04/21/21 19:20 Completed CMP Stat Lab 04/21/21 19:20 Completed LIPASE Stat Lab 04/21/21 19:20 Completed TROPONIN Q3H Lab 04/21/21 19:20 Completed TROPONIN Q3H Lab 04/21/21 22:16 Completed TROPONIN Q3H Lab 04/22/21 01:15 Ordered TROPONIN Q3H Lab 04/22/21 04:15 Ordered TROPONIN Q3H Lab 04/22/21 07:15 Ordered UA W/RFX UR CULTURE Stat Lab 04/21/21 19:15 Ordered Medication Summary Discontinued Medications Generic Name Dose Route Start Last Admin Trade Name Marco A PRN Reason Stop Dose Admin Sodium Chloride 1,000 mls @ 999 mls/hr 04/21/21 19:14 04/21/21 21:55 Sodium Chloride 0.9% 1000 Ml IV 04/21/21 20:14 Infused .Q1H1M STA Infusion Sodium Chloride Confirm 04/21/21 19:44 Sodium Chloride 0.9% 1000 Ml Administered 04/21/21 19:45 Dose 1,000 mls @ ud .ROUTE .STK-MED ONE Lab/Rad Data: Laboratory Result Diagrams 04/21/21 19:20 04/21/21 19:20 Laboratory Results 04/21/21 04/21/21 04/21/21 Range/Units 22:16 19:20 19:20 WBC (4.0-10.5) K/mm3 RBC (4.1-5.6) M/mm3 Hgb (12.5-18.0) gm/dl Hct (42-50) % MCV (78-100) fl MCH (26-32) pg MCHC (32-36) g/dl RDW (11.5-14.0) % Plt Count (150-450) K/mm3 MPV (7.5-11.0) fl Gran % (36.0-66.0) % Eos # (Auto) (0-0.5) Absolute Lymphs (auto) (1.0-4.6) Absolute Monos (auto) (0.0-1.3) Lymphocytes % (24.0-44.0) % Monocytes % (0.0-12.0) % Eosinophils % (0.00-5.0) % Basophils % (0.0-0.4) % Absolute Granulocytes (1.4-6.9) Basophils # (0-0.4) Sodium 137 (137-145) mmol/L Potassium 4.0 (3.5-5.1) mmol/L Chloride 107 (98-107) mmol/L Carbon Dioxide 18 L (22-30) mmol/L Anion Gap 15.0 (5-15) MEQ/L BUN 18 (9-20) mg/dL Creatinine 0.81 (0.66-1.25) mg/dL Estimated GFR > 60.0 ML/MIN Glucose 270 H (74-106) mg/dL Calcium 8.7 (8.4-10.2) mg/dL Total Bilirubin 0.30 (0.2-1.3) mg/dL AST 18 (17-59) U/L ALT 18 (0-50) U/L Alkaline Phosphatase 65 (38-126) U/L Troponin I < 0.012 < 0.012 (0.000-0.034) ng/mL Serum Total Protein 6.3 (6.3-8.2) g/dL Albumin 3.7 (3.5-5.0) g/dL Lipase 100 (23-300) U/L 04/21/21 Range/Units 19:20 WBC 10.6 H (4.0-10.5) K/mm3 RBC 4.61 (4.1-5.6) M/mm3 Hgb 12.0 L (12.5-18.0) gm/dl Hct 39.6 L (42-50) % MCV 85.9 (78-100) fl MCH 26.0 (26-32) pg MCHC 30.3 L (32-36) g/dl RDW 15.3 H (11.5-14.0) % Plt Count 239 (150-450) K/mm3 MPV 9.5 (7.5-11.0) fl Gran % 85.2 H (36.0-66.0) % Eos # (Auto) 0.24 (0-0.5) Absolute Lymphs (auto) 0.67 L (1.0-4.6) Absolute Monos (auto) 0.64 (0.0-1.3) Lymphocytes % 6.3 L (24.0-44.0) % Monocytes % 6.0 (0.0-12.0) % Eosinophils % 2.3 (0.00-5.0) % Basophils % 0.2 (0.0-0.4) % Absolute Granulocytes 9.05 H (1.4-6.9) Basophils # 0.02 (0-0.4) Sodium (137-145) mmol/L Potassium (3.5-5.1) mmol/L Chloride (98-107) mmol/L Carbon Dioxide (22-30) mmol/L Anion Gap (5-15) MEQ/L BUN (9-20) mg/dL Creatinine (0.66-1.25) mg/dL Estimated GFR ML/MIN Glucose (74-106) mg/dL Calcium (8.4-10.2) mg/dL Total Bilirubin (0.2-1.3) mg/dL AST (17-59) U/L ALT (0-50) U/L Alkaline Phosphatase (38-126) U/L Troponin I (0.000-0.034) ng/mL Serum Total Protein (6.3-8.2) g/dL Albumin (3.5-5.0) g/dL Lipase (23-300) U/L - Progress Progress: improved Progress Note: Patient reassessed. He denies abdominal pain. CT abdomen pelvis negative for acute intra-abdominal pathology. Labs essentially nonremarkable. Troponin negative x2. Patient was tachycardic upon arrival. Heart rate now 99. 04/21/21 22:59 Counseled pt/family regarding: lab results, diagnosis, need for follow-up, rad results - Departure Departure Disposition: Home Clinical Impression: Abdominal pain, Constipation Condition: Stable Critical Care Time: No Referrals: GARY LOMBARDI MD [Primary Care Provider] - Additional Instructions: Discharge/Care Plan MALINDA BURTON was seen on 04/21/21 in the Emergency Room. The patient was counseled regarding Diagnosis,Lab results, Imaging studies, need for follow up and when to return to the Emergency Room. Prescriptions given: Discharge Note I have spoken with the patient and/or caregivers. I have explained the patient's condition, diagnosis and treatment plan based on the information available to me at this time. I have answered the patient's and/or caregiver's questions and addressed any concerns. The patient and/or caregivers have as good understanding of the patient's diagnosis, condition and treatment plan as can be expected at this point. The vital signs have been stable. The patient's condition is stable and appropriate for discharge from the emergency department. The patient will pursue further outpatient evaluation with the primary care physician or other designated or consulting physician as outlined in the discharge instructions. The patient and/or caregivers are agreeable to this plan of care and follow-up instructions have been explained in detail. The patient and/or caregivers have received these instruction. The patient/and or caregivers are aware that any significant change in condition or worsening of symptoms should prompt an immediate return to this or the closest emergency department or call 911.
[2021-04-21] MEDS ORDERED: Sodium Chloride 0.9% 1000 ML 1,000 ML IV STA (19:14)
[2021-04-21 19:27] LABS: Absolute Neutrophil Ct (ANC) 9.05 (1.4-6.9); BASOPHIL % 0.2 % (0.0-0.4); Basophil (Absolute #) 0.02 (0-0.4); Eosinophil % 2.3 % (0.00-5.0); Eosinophil (Absolute #) 0.24 (0-0.5); Hematocrit 39.6 % (42-50); Lymphocyte (Absolute #) 0.67 (1.0-4.6); Lymphocytes % 6.3 % (24.0-44.0); Mean Cell Volume 85.9 fl (78-100); Mean Corpuscular Hgb Concent. 30.3 g/dl (32-36); Mean Platelet Volume 9.5 fl (7.5-11.0); Monocyte (Absolute #) 0.64 (0.0-1.3); Neutrophil % 85.2 % (36.0-66.0); Platelet Count 239 K/mm3 (150-450); Red Blood Count 4.61 M/mm3 (4.1-5.6); Red Cell Distribution Width 15.3 % (11.5-14.0); White Blood Count 10.6 K/mm3 (4.0-10.5)
[2021-04-21] MEDS ORDERED: Sodium Chloride 0.9% 1000 ML 1,000 ML ONE (19:44)
[2021-04-21 19:48] LABS: ALBUMIN 3.7 g/dL (3.5-5.0); ALKALINE PHOSPHATASE 65 U/L (38-126); BLOOD UREA NITROGEN 18 mg/dL (9-20); CHLORIDE 107 mmol/L (98-107); Calcium 8.7 mg/dL (8.4-10.2); Carbon Dioxide 18 mmol/L (22-30); Creatinine 1 0.81 mg/dL (0.66-1.25); EST GLOMERULAR FILTRATION RATE > 60.0 ML/MIN; Glucose 270 mg/dL (74-106); LIPASE 100 U/L (23-300); SGOT/AST 18 U/L (17-59); SGPT/ALT 18 U/L (0-50); SODIUM 137 mmol/L (137-145); Total Protein 6.3 g/dL (6.3-8.2)
[2021-04-22 06:49] VITALS: BP 143/93; PULSE 82
--- NOTE | 2021-04-22 09:39 | XRAY ---
Exam: CT of the abdomen and pelvis with IV contrast from 04/21/2021. CTDI: 5.27 mGy Comparison: CT of the abdomen and pelvis with IV contrast from 01/23/2021. Indication: 66-year-old male with abdominal pain. Technique: Post-IV contrast axial images were obtained through the abdomen and pelvis during automated injection of 80 cc of Isovue-370 contrast material. Reconstructed coronal and sagittal images were created and reviewed. Findings: The industrial technologist left a note that the patient had difficulty following the breath hold commands during the performance of the CT. The lung bases reveal an apparent calcified granuloma at the posterior lateral right lung base on the first image. Otherwise, the visualized lung bases appear clear. The transverse heart size is normal. The liver appears of unremarkable size and is remarkable for a probable tiny 5 mm cyst within the left lobe of the liver on axial image #18 and #19. No other liver mass or intrahepatic biliary duct distention is seen. The gallbladder is partially contracted, but otherwise unremarkable. The spleen is of normal size and reveals a few calcified granulomas within it. No focal splenic mass is seen. Both the pancreas and adrenal glands appear unremarkable. The kidneys are of unremarkable size and shape. A small extrarenal pelvis is seen on the left. No renal calculi, hydronephrosis, or renal mass is seen. Both unopacified ureters appear of unremarkable diameter without ureterolith. No definite stone is seen within the urinary bladder. Both kidneys function on delay images. I believe there is some mild focal scarring at the posterior aspect of the upper pole of the left kidney which is unchanged in retrospect. Moderate atherosclerotic vascular calcification is seen within the abdominal aorta and proximal iliac arteries. No abdominal aortic aneurysm or abnormal retroperitoneal lymphadenopathy is seen. There is abundant intraperitoneal fat. There is no free intraperitoneal air or ventral bowel containing hernia. The abdomen is protuberant. There is a large amount of fluid/secretions which distends the stomach lumen. Above this, I see fluid within the distal esophageal lumen suggesting gastroesophageal reflux. The remainder of the bowel is nonobstructive. Moderate stool is seen scattered throughout the colon which may be due to constipation, although no small bowel or colon distention is seen. No bowel wall thickening is seen. I see no findings to suggest appendicitis within the right lower quadrant. Within the pelvis, I see no abnormal mass or pelvic lymphadenopathy. The urinary bladder is mildly distended. No urinary bladder abnormality is seen. The seminal vesicles appear unremarkable. The prostate gland is mildly enlarged measuring 4.9 cm in width and 4.1 cm in AP dimension on axial image #82 of series 2. There is no free intraperitoneal fluid. A few calcified phleboliths are seen. Some postinflammatory lymph nodes are seen within each groin. The skeleton reveals mild degenerative changes within the visualized lower thoracolumbar spine. No acute fracture or other aggressive bone lesion is seen. The CT supervisor inspection room image reveals a minimal rotary levoscoliosis centered at L2-L3. Impression: 1. A large amount of fluid/secretions are seen filling the stomach lumen, the latter which appears enlarged. I also note moderate fluid within the distal esophageal lumen suggestive of gastroesophageal reflux. Correlate clinically. 2. Moderate diffuse colonic fecal stasis without evidence of bowel obstruction. No free intraperitoneal air is seen. 3. Unremarkable appendix. 4. Mild prostate gland enlargement, as discussed above. 5. I believe there is a small focal cortical scar at the upper posterior margin of the left kidney representing no change. 6. No other acute intra-abdominal or pelvic process is seen.
== END 2021-04-22 02:38 | disposition home or self-care (01) ==
LOC: ED 18:45
DX: R10.9 Unspecified abdominal pain (principal); K59.00 Constipation, unspecified; Z79.899 Other long term (current) drug therapy
CPT/HCPCS: 36000; 36415; 74177; 80053; 83690; 84484; 85025; 93005; 99284

== ENCOUNTER 2021-04-26 08:30 | Emergency (ER) | payer MEDICAID, OTHER ==
[2021-04-26] MEDS ORDERED: Sodium Chloride 0.9% 1000 ML 1,000 ML IV STA (08:49)
[2021-04-26] MEDS ORDERED: Sodium Chloride 0.9% 1000 ML 1,000 ML ONE (08:56)
[2021-04-26 09:06] LABS: Absolute Neutrophil Ct (ANC) 8.72 (1.4-6.9); BASOPHIL % 0.2 % (0.0-0.4); Basophil (Absolute #) 0.02 (0-0.4); Eosinophil % 3.7 % (0.00-5.0); Eosinophil (Absolute #) 0.46 (0-0.5); Hematocrit 42.9 % (42-50); Hemoglobin 13.4 gm/dl (12.5-18.0); Lymphocyte (Absolute #) 1.79 (1.0-4.6); Lymphocytes % 14.6 % (24.0-44.0); Mean Cell Volume 83.3 fl (78-100); Mean Corpuscular Hgb Concent. 31.2 g/dl (32-36); Mean Platelet Volume 10.1 fl (7.5-11.0); Monocyte (Absolute #) 1.29 (0.0-1.3); Monocytes % 10.5 % (0.0-12.0); Platelet Count 301 K/mm3 (150-450); Red Blood Count 5.15 M/mm3 (4.1-5.6); Red Cell Distribution Width 15.7 % (11.5-14.0); White Blood Count 12.3 K/mm3 (4.0-10.5)
[2021-04-26 09:11] LABS: ALBUMIN 4.4 g/dL (3.5-5.0); ALKALINE PHOSPHATASE 85 U/L (38-126); BLOOD UREA NITROGEN 18 mg/dL (9-20); CHLORIDE 100 mmol/L (98-107); Calcium 9.6 mg/dL (8.4-10.2); Carbon Dioxide 23 mmol/L (22-30); Creatinine 1 1.22 mg/dL (0.66-1.25); EST GLOMERULAR FILTRATION RATE > 60.0 ML/MIN; ETHYL ALCOHOL < 10 mg/dL (0-10); Glucose 121 mg/dL (74-106); Potassium 4.1 mmol/L (3.5-5.1); SGOT/AST 26 U/L (17-59); SGPT/ALT 20 U/L (0-50); SODIUM 134 mmol/L (137-145); Total Protein 7.4 g/dL (6.3-8.2)
[2021-04-26 09:37] LABS: Appearance CLEAR (CLEAR); Bilirubin NEGATIVE (NEGATIVE); Blood NEGATIVE Ery/ul (0-5); Glucose NEGATIVE (NEGATIVE); Ketones NEGATIVE (NEGATIVE); Leukocyte Esterase NEGATIVE (NEGATIVE); Nitrite NEGATIVE (NEGATIVE); Protein,Urine Dip NEGATIVE (Negative); Specific Gravity 1.015 (1.005-1.025); Urobilinogen NEGATIVE mg/dL (0-1)
--- NOTE | 2021-04-26 09:43 | ERPHSYRPT ---
- History of Present Illness Time Seen by Provider: 04/26/21 09:40 Source: EMS Exam Limitations: clinical condition Patient Subjective Stated Complaint: pt here by ambulnace for altered mental status at home, he was found by hes family this way. Triage Nursing Assessment: pt has chew in pocket and has chew in bread and down neck, feces on hands and legs, hands and legs wiped off, resp easy, pt is nonverbal but will follow simple commands, he has fine tremors at times, has what appears to be insect bites to lower legs, pt has hx of pests in home and lives in very poor conditons according to ems. pt often does not take meds correctly Physician History: pt here by ambulnace for altered mental status at home, he was found by his family this way. Patient is responding to verbal stimuli in ER. Denies any complaints. Soiled with feces. Patient has Hx of catatonic schizophrenia Timing/Duration: today Severity: mild Character of Deficits: none Baseline/Normal Cognition: alert/disoriented to time Current Cognition: alert but confused Associated Symptoms: denies symptoms Allergies/Adverse Reactions: No Known Drug Allergies Allergy (Verified 04/21/21 19:01) Home Medications: Clonazepam [Klonopin] 1 mg PO TID PRN 11/10/16 [History] Quetiapine Fumarate 100 mg [Seroquel 100 MG] 150 mg PO HS 11/10/16 [History] Amlodipine Besylate 10 mg [Norvasc 10 MG] 10 mg PO HS 04/17/18 [History] Budesonide/Formoterol Fumarate [Budesonide-Formoterol 160-4.5] 2 puffs IH BID 01/14/20 [History] PANTOPRAZOLE 40 mg Tablet [Protonix 40MG Tablet] 40 mg PO DAILY 04/21/20 [History] Buspirone HCl [Buspar] 10 mg PO BID 10/31/20 [History] Lisinopril/Hydrochlorothiazide [Lisinopril-Hctz 20-25 mg Tab] 1 each PO DAILY 10/31/20 [History] Metoprolol Tartrate 25 mg [Lopressor 25MG Tab] 25 mg PO BID 10/31/20 [His tory] Risperidone [Risperdal] 2 mg PO BID 10/31/20 [History] Hx Tetanus, Diphtheria Vaccination/Date Given: Yes Hx Influenza Vaccination/Date Given: Yes Hx Pneumococcal Vaccination/Date Given: No Immunizations Up to Date: No (unknown) Travel Risk - International Travel Have you traveled outside of the country in past 3 weeks: No - Coronavirus Screening Are you exhibiting any of the following symptoms?: No Close contact with a COVID-19 positive Pt in past 14-21 Days: No - Vaccine Status Have you recieved a Covid-19 vaccination: No - Review of Systems All Other Systems: Unable due to condition - Past Medical History Pertinent Past Medical History: Yes Neurological History: Other ENT History: No Pertinent History Cardiac History: Hypertension Respiratory History: No Pertinent History Endocrine Medical History: No Pertinent History Musculoskeletal History: No Pertinent History GI Medical History: GERD History: No Pertinent History Psycho-Social History: Anxiety, Other Male Reproductive Disorders: No Pertinent History Other Medical History: CP, 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, paranoid schizophrenia - Past Surgical History Past Surgical History: Yes Neuro Surgical History: No Pertinent History Cardiac: No Pertinent History Respiratory: No Pertinent History Gastrointestinal: No Pertinent History Genitourinary: No Pertinent History Musculoskeletal: No Pertinent History Male Surgical History: No Pertinent History Other Surgical History: SKIN CA REMOVED FACE - Social History Smoking Status: Former smoker How long have you smoked: 35 Exposure to second hand smoke: No Alcohol Use: None Drug Use: none Patient Lives Alone: No (nephew) Significant Family History: no pertinent family hx - Nursing Vital Signs Nursing Vital Signs: Initial Vital Signs Temperature 98.3 F 04/26/21 08:53 Pulse Rate 108 H 04/26/21 08:53 Respiratory Rate 18 04/26/21 08:53 Blood Pressure 179/113 04/26/21 08:53 O2 Sat by Pulse Oximetry 96 04/26/21 08:53 Pain Scale Pain Intensity 0 - [place] Coma Scale Best Eye Response ([place]): (3) open to voice Best Verbal Response ([place]): (4) confused conversation Best Motor Response ([place]): (5) localizes to pain Satnam Total: 12 - Physical Exam General Appearance: mild distress Eye Exam: bilateral eye: PERRL, EOMI Ears, Nose, Throat Exam: normal ENT inspection, moist mucous membranes Neck Exam: normal inspection, non-tender, supple Respiratory: normal breath sounds, lungs clear, airway intact, No respiratory distress Cardiovascular: regular rate/rhythm, No edema Gastrointestinal: soft, No tenderness, No distention Back Exam: normal inspection Extremity Exam: normal inspection, No pedal edema 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, 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, 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 Coordination/Gait: normal finger to nose, normal gait Skin Exam: normal color, warm, dry, No rash SpO2: 96 - Course Nursing assessment & vital signs reviewed: Yes EKG Interpreted by Me: Sinus Rhythm - Radiology Exams Chest X-ray Interpretation: Reviewed by me - CT Exams Head CT Interpretation: Tele-radiologist Report Ordered Tests: Active Orders 24 hr Category Date Time Status Supervisor Boarding STAT Care 04/26/21 08:54 Active EKG-ER Only STAT Care 04/26/21 08:49 Active Oxygen-ED Only Nasal Cannula 2 lpm Care 04/26/21 08:49 Active CHEST 1 VIEW (PORTABLE) Stat Exams 04/26/21 08:53 Taken HEAD WITHOUT CONTRAST [CT] Stat Exams 04/26/21 08:58 Taken CBC W DIFF Stat Lab 04/26/21 08:49 Completed CMP Stat Lab 04/26/21 08:49 Completed ETHYL ALCOHOL Stat Lab 04/26/21 08:49 Completed Lactic Acid Stat Lab 04/26/21 08:49 Completed UA W/RFX UR CULTURE Stat Lab 04/26/21 09:10 Completed Urine Triage Profile Stat Lab 04/26/21 09:10 Completed Medication Summary Discontinued Medications Generic Name Dose Route Start Last Admin Trade Name Marco A PRN Reason Stop Dose Admin Sodium Chloride 1,000 mls @ 999 mls/hr 04/26/21 08:49 04/26/21 08:57 Sodium Chloride 0.9% 1000 Ml IV 04/26/21 09:49 999 mls/hr .Q1H1M STA Administration Sodium Chloride Confirm 04/26/21 08:56 Sodium Chloride 0.9% 1000 Ml Administered 04/26/21 08:57 Dose 1,000 mls @ ud .ROUTE .[facility] Lab/Rad Data: Laboratory Result Diagrams 04/26/21 08:49 04/26/21 08:49 Laboratory Results 04/26/21 04/26/21 04/26/21 Range/Units 09:10 09:10 08:49 WBC (4.0-10.5) K/mm3 RBC (4.1-5.6) M/mm3 Hgb (12.5-18.0) gm/dl Hct (42-50) % MCV (78-100) fl MCH (26-32) pg MCHC (32-36) g/dl RDW (11.5-14.0) % Plt Count (150-450) K/mm3 MPV (7.5-11.0) fl Gran % (36.0-66.0) % Eos # (Auto) (0-0.5) Absolute Lymphs (auto) (1.0-4.6) Absolute Monos (auto) (0.0-1.3) Lymphocytes % (24.0-44.0) % Monocytes % (0.0-12.0) % Eosinophils % (0.00-5.0) % Basophils % (0.0-0.4) % Absolute Granulocytes (1.4-6.9) Basophils # (0-0.4) Sodium 134 L (137-145) mmol/L Potassium 4.1 (3.5-5.1) mmol/L Chloride 100 (98-107) mmol/L Carbon Dioxide 23 (22-30) mmol/L Anion Gap 15.0 (5-15) MEQ/L BUN 18 (9-20) mg/dL Creatinine 1.22 (0.66-1.25) mg/dL Estimated GFR > 60.0 ML/MIN Glucose 121 H (74-106) mg/dL Lactic Acid (0.4-2.0) Calcium 9.6 (8.4-10.2) mg/dL Total Bilirubin 0.40 (0.2-1.3) mg/dL AST 26 (17-59) U/L ALT 20 (0-50) U/L Alkaline Phosphatase 85 (38-126) U/L Serum Total Protein 7.4 (6.3-8.2) g/dL Albumin 4.4 (3.5-5.0) g/dL Urine Color YELLOW (YELLOW) Urine Appearance CLEAR (CLEAR) Urine pH 6.0 (5-6) Ur Specific [place] 1.015 (1.005-1.025) Urine Protein NEGATIVE (Negative) Urine Ketones NEGATIVE (NEGATIVE) Urine Blood NEGATIVE (0-5) Pravin/ul Urine Nitrite NEGATIVE (NEGATIVE) Urine Bilirubin NEGATIVE (NEGATIVE) Urine Urobilinogen NEGATIVE (0-1) mg/dL Ur Leukocyte Esterase NEGATIVE (NEGATIVE) Urine WBC (Auto) NONE (0-5) /HPF Urine RBC (Auto) NONE (0-2) /HPF U Epithel Cells (Auto) NONE (FEW) /HPF Urine Bacteria (Auto) NONE (NEGATIVE) /HPF Urine Culture Reflexed NO (NO) Urine Glucose NEGATIVE (NEGATIVE) mg/dL Urine Opiates Level NEGATIVE (NEGATIVE) Ur Methadone NEGATIVE (NEGATIVE) Urine Barbiturates NEGATIVE (NEGATIVE) Ur Phencyclidine (PCP) NEGATIVE (NEGATIVE) Urine Amphetamine NEGATIVE (NEGATIVE) U Benzodiazepine Level NEGATIVE (NEGATIVE) Urine Cocaine NEGATIVE (NEGATIVE) Urine Marijuana (THC) NEGATIVE (NEGATIVE) Ethyl Alcohol < 10 (0-10) mg/dL 04/26/21 04/26/21 Range/Units 08:49 08:49 WBC 12.3 H (4.0-10.5) K/mm3 RBC 5.15 (4.1-5.6) M/mm3 Hgb 13.4 (12.5-18.0) gm/dl Hct 42.9 (42-50) % MCV 83.3 (78-100) fl MCH 26.0 (26-32) pg MCHC 31.2 L (32-36) g/dl RDW 15.7 H (11.5-14.0) % Plt Count 301 (150-450) K/mm3 MPV 10.1 (7.5-11.0) fl Gran % 71.0 H (36.0-66.0) % Eos # (Auto) 0.46 (0-0.5) Absolute Lymphs (auto) 1.79 (1.0-4.6) Absolute Monos (auto) 1.29 (0.0-1.3) Lymphocytes % 14.6 L (24.0-44.0) % Monocytes % 10.5 (0.0-12.0) % Eosinophils % 3.7 (0.00-5.0) % Basophils % 0.2 (0.0-0.4) % Absolute Granulocytes 8.72 H (1.4-6.9) Basophils # 0.02 (0-0.4) Sodium (137-145) mmol/L Potassium (3.5-5.1) mmol/L Chloride (98-107) mmol/L Carbon Dioxide (22-30) mmol/L Anion Gap (5-15) MEQ/L BUN (9-20) mg/dL Creatinine (0.66-1.25) mg/dL Estimated GFR ML/MIN Glucose (74-106) mg/dL Lactic Acid 1.4 (0.4-2.0) Calcium (8.4-10.2) mg/dL Total Bilirubin (0.2-1.3) mg/dL AST (17-59) U/L ALT (0-50) U/L Alkaline Phosphatase (38-126) U/L Serum Total Protein (6.3-8.2) g/dL Albumin (3.5-5.0) g/dL Urine Color (YELLOW) Urine Appearance (CLEAR) Urine pH (5-6) Ur Specific [place] (1.005-1.025) Urine Protein (Negative) Urine Ketones (NEGATIVE) Urine Blood (0-5) Pravin/ul Urine Nitrite (NEGATIVE) Urine Bilirubin (NEGATIVE) Urine Urobilinogen (0-1) mg/dL Ur Leukocyte Esterase (NEGATIVE) Urine WBC (Auto) (0-5) /HPF Urine RBC (Auto) (0-2) /HPF U Epithel Cells (Auto) (FEW) /HPF Urine Bacteria (Auto) (NEGATIVE) /HPF Urine Culture Reflexed (NO) Urine Glucose (NEGATIVE) mg/dL Urine Opiates Level (NEGATIVE) Ur Methadone (NEGATIVE) Urine Barbiturates (NEGATIVE) Ur Phencyclidine (PCP) (NEGATIVE) Urine Amphetamine (NEGATIVE) U Benzodiazepine Level (NEGATIVE) Urine Cocaine (NEGATIVE) Urine Marijuana (THC) (NEGATIVE) Ethyl Alcohol (0-10) mg/dL - Progress Progress: improved Progress Note: 04/26/21 11:01 Patient is much more alert awake oriented. He denies any other symptoms. Counseled pt/family regarding: lab results, diagnosis, need for follow-up, rad results - Departure Departure Disposition: Home Clinical Impression: Paranoid schizophrenia in remission, Poor social situation Altered mental status, unspecified Qualifiers: Altered mental status type: transient alteration of awareness Qualified Code(s): R40.4 - Transient alteration of awareness Condition: Stable Critical Care Time: Yes Critical Care Time(excluding separately billable procedures): Critical 30-74 mins Referrals: GARY LOMBARDI MD [Primary Care Provider] - Follow Up with PCP Instructions: Altered Mental Status (DC) Additional Instructions: Discharge/Care Plan MALINDA BURTON was seen on 04/26/21 in the Emergency Room. The patient was counseled regarding Diagnosis,Lab results, Imaging studies, need for follow up and when to return to the Emergency Room. Prescriptions given: Discharge Note I have spoken with the patient and/or caregivers. I have explained the patient's condition, diagnosis and treatment plan based on the information available to me at this time. I have answered the patient's and/or caregiver's questions and addressed any concerns. The patient and/or caregivers have as good understanding of the patient's diagnosis, condition and treatment plan as can be expected at this point. The vital signs have been stable. The patient's condition is stable and appropriate for discharge from the emergency department. The patient will pursue further outpatient evaluation with the primary care delores newberry or other designated or consulting physician as outlined in the discharge instructions. The patient and/or caregivers are agreeable to this plan of care and follow-up instructions have been explained in detail. The patient and/or caregivers have received these instruction. The patient/and or caregivers are aware that any significant change in condition or worsening of symptoms should prompt an immediate return to this or the closest emergency department or call 911. MALINDA BURTON was seen on 04/26/21 n the Emergency Room. At that time you were treated for an emergent condition, during your visit Laboratory, Radiology and/or other procedures may have been ordered. It is very important that you follow-up with your Primary Care Physician GARY LOMBARDI within the next 24-48 hours to review your Emergency Room visit and the final results of testing that was ordered. Some test results such as Urine Cultures, Blood Cultures, and other cultures if ordered will not be finalized for 24-48 hours. If you do not have a Primary Care Provider please call the medical records department at [phone] ext [phone] to obtain a copy of your results or you may sign into our patient portal to obtain these results by visiting us @ [email or web address] and completing the following steps: 1. Click on the Patient Portal link 2. Click the Patient Self Enrollment Link to complete the enrollment form and entering your 3. Once the enrollment form is completed you will receive an email with a temporary ID and password at the email address you provided. 4. Next choose a user name and password. Your user name must be at least 4 characters long and your password must be at least 4 characters long. 5. Choose a security question from the list and provide your answer to the question. If you already have signed into the Health Portal you may access your Health Care Information 29/03 by the following steps: 1. Login to our website @ [email or web address] 2. Enter your original user name and password. FAQS The [facility] Health Portal is an online tool that contains your Lab Results, Radiology Reports, Visit History, Discharge Instructions and Health Summary Lab and Radiology Results will not be available for 72 hours on the portal. The Portal is a secure site, passwords are encryted and URLs are re-written so they cannot be copied and pasted. You and authorized family members are the only ones who can access your Portal. Also there is a timeout feature that protects your information if you leave the Portal page open. If you have technical difficulty please use the Contact Us link on the page this will allow you to submit any questions you have regarding the Portal or you may contact the Medical Record Department at [phone] ext [phone]. Please take your medicine on a regular basis do not miss any of your medication please take care of her personal hygiene properly.
[2021-04-26 09:50] LABS: Amphetamine,Urine NEGATIVE (NEGATIVE); Barbiturate,Urine NEGATIVE (NEGATIVE); Benzodiazepine,Urine NEGATIVE (NEGATIVE); Cocaine,Urine NEGATIVE (NEGATIVE); Methadone,Urine NEGATIVE (NEGATIVE); Opiate,Urine NEGATIVE (NEGATIVE); PCP,Urine NEGATIVE (NEGATIVE); THC,Urine NEGATIVE (NEGATIVE)
[2021-04-26 15:14] VITALS: BP 128/60; PULSE 70; O2SAT 98
--- NOTE | 2021-04-26 20:26 | XRAY ---
Indication: Altered mental status. Multiple contiguous axial images obtained through the head without contrast. Comparison: January 22, 2021. 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 No acute intracranial hemorrhage, hydrocephalus, or mass effect. Fourth ventricle is midline. Beltran-white matter differentiation preserved. Bony calvarium intact. Visualized paranasal sinuses and mastoid air cells are clear. 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 No new or acute intracranial abnormalities. Comment: Preliminary interpretation made by [facility]. No critical discrepancy.
--- NOTE | 2021-04-26 20:28 | XRAY ---
Indication: Altered mental status. Comparison: January 22, 2021. Portable chest less inflated and remains clear again with incidental pulmonary/mediastinal calcified granulomas. Heart not enlarged. Bony thorax intact. No new/acute findings.
== END 2021-04-26 15:49 | disposition home or self-care (01) ==
LOC: ED 08:30
DX: F20.0 Paranoid schizophrenia (principal); R40.4 Transient alteration of awareness; Z60.9 Problem related to social environment, unspecified; Z79.899 Other long term (current) drug therapy
CPT/HCPCS: 36415; 70450; 71045; 80053; 80307; 81001; 83605; 85025; 93005; 93041; 96360; 99284; 99291; G0480

== ENCOUNTER 2021-04-26 19:04 | Emergency (ER) | payer MEDICAID, OTHER ==
[2021-04-26] MEDS ORDERED: Ativan 2 MG/1 ML VIAL ONE (19:20)
[2021-04-26] MEDS ORDERED: Ativan 2 MG/1 ML VIAL IM ONE (19:22)
--- NOTE | 2021-04-26 19:29 | ERPHSYRPT ---
- History of Present Illness Time Seen by Provider: 04/26/21 19:24 Source: patient, EMS Patient Subjective Stated Complaint: Patient states, "I' m scared, I'm nervous." He indicates that he doesn't know why he feels scared or nervous. He denies any thoughts or feels of harming himself or anyone else. Triage Nursing Assessment: Patient is giving short answers to questions. Body does quiver/shake a bit when patient is being asked questions about himself. RLE is smaller/valle than LLE. Multiple pinpoint scabs noted to BLE. Patient unable to indicate how areas to BLE occurred. Scant amount of dried blood to right side of nose. Purulent drainage to corner of bilateral eyes. Physician History: This is a 66-year-old white male who returns to the emergency department after being evaluated less than 8 hours ago and discharged from this facility less than 3 hours ago. I reviewed the patient's chart from his prior visit. He had a full work-up including blood work, urinalysis, urine triage, CAT scan of the head, chest x-ray. He was diagnosed with paranoid schizophrenia in remission and poor social condition. He was sent home a few hours ago but then returns to the emergency department. The patient's family, nephews state that if we send the patient home they will call the ambulance back in order to send the patient back to this emergency department. The patient has no complaints other than he feels anxious and he is not sure why. He is not suicidal and is not homicidal. He has no chest pain. He denies shortness of breath. He has no abdominal pain. Patient feels safe at home and does not feel as though he is in any harm at home. Timing/Duration: today Severity: mild Modifying Factors: Improves With: nothing Associated Symptoms: denies symptoms Allergies/Adverse Reactions: No Known Drug Allergies Allergy (Verified 04/21/21 19:01) Home Medications: Clonazepam [Klonopin] 1 mg PO TID PRN 11/10/16 [History] Quetiapine Fumarate 100 mg [Seroquel 100 MG] 150 mg PO HS 11/10/16 [History] Amlodipine Besylate 10 mg [Norvasc 10 MG] 10 mg PO HS 04/17/18 [History] Budesonide/Formoterol Fumarate [Budesonide-Formoterol 160-4.5] 2 puffs IH BID 01/14/20 [History] PANTOPRAZOLE 40 mg Tablet [Protonix 40MG Tablet] 40 mg PO DAILY 04/21/20 [History] Buspirone HCl [Buspar] 10 mg PO BID 10/31/20 [History] Lisinopril/Hydrochlorothiazide [Lisinopril-Hctz 20-25 mg Tab] 1 each PO DAILY 10/31/20 [History] Metoprolol Tartrate 25 mg [Lopressor 25MG Tab] 25 mg PO BID 10/31/20 [History] Risperidone [Risperdal] 2 mg PO BID 10/31/20 [History] Hx Tetanus, Diphtheria Vaccination/Date Given: Yes Hx Influenza Vaccination/Date Given: Yes Hx Pneumococcal Vaccination/Date Given: No Travel Risk - International Travel Have you traveled outside of the country in past 3 weeks: No - Coronavirus Screening Are you exhibiting any of the following symptoms?: No Close contact with a COVID-19 positive Pt in past 14-21 Days: No - Vaccine Status Have you recieved a Covid-19 vaccination: No - Review of Systems Constitutional: No Symptoms Eyes: No Symptoms Ears, Nose, & Throat: No Symptoms Respiratory: No Symptoms Cardiac: No Symptoms Abdominal/Gastrointestinal: No Symptoms Genitourinary Symptoms: No Symptoms Musculoskeletal: No Symptoms Skin: No Symptoms Neurological: No Symptoms Psychological: Anxiety Endocrine: No Symptoms Hematologic/Lymphatic: No Symptoms Immunological/Allergic: No Symptoms All Other Systems: Reviewed and Negative - Past Medical History Pertinent Past Medical History: Yes Neurological History: Other ENT History: No Pertinent History Cardiac History: Hypertension Respiratory History: No Pertinent History Endocrine Medical History: No Pertinent History Musculoskeletal History: No Pertinent History GI Medical History: GERD History: No Pertinent History Psycho-Social History: Anxiety, Other Male Reproductive Disorders: No Pertinent History Other Medical History: CP, 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, paranoid schizophrenia - Past Surgical History Past Surgical History: Yes Neuro Surgical History: No Pertinent History Cardiac: No Pertinent History Respiratory: No Pertinent History Gastrointestinal: No Pertinent History Genitourinary: No Pertinent History Musculoskeletal: No Pertinent History Male Surgical History: No Pertinent History Other Surgical History: SKIN CA REMOVED FACE - Social History Smoking Status: Former smoker How long have you smoked: 35 Exposure to second hand smoke: No Alcohol Use: None Drug Use: none Patient Lives Alone: No (nephew) Significant Family History: no pertinent family hx - Nursing Vital Signs Nursing Vital Signs: Initial Vital Signs Temperature 98.4 F 04/26/21 19:09 Pulse Rate 126 H 04/26/21 19:09 Respiratory Rate 22 04/26/21 19:09 Blood Pressure 179/94 04/26/21 19:09 O2 Sat by Pulse Oximetry 98 04/26/21 19:09 Pain Scale Pain Intensity 0 - Physical Exam General Appearance: no apparent distress, alert, anxiety Eye Exam: PERRL/EOMI, eyes nml inspection Ears, Nose, Throat Exam: normal ENT inspection, moist mucous membranes Neck Exam: normal inspection, non-tender, supple, full range of motion Respiratory Exam: normal breath sounds, lungs clear, airway intact, No chest tenderness, No respiratory distress Cardiovascular Exam: tachycardia Gastrointestinal/Abdomen Exam: soft, normal bowel sounds, No tenderness Rectal Exam: not done Back Exam: normal inspection, normal range of motion, No CVA tenderness, No vertebral tenderness Extremity Exam: normal inspection, normal range of motion, pelvis stable 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, oriented x 3, cooperative, 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 tested, normal mood/affect, nml cerebellar function, nml station & gait, sensation nml Skin Exam: normal color, warm, dry Lymphatic Exam: No adenopathy SpO2 Interpretation: normal SpO2: 98 O2 Delivery: Room Air - Course Nursing assessment & vital signs reviewed: Yes Ordered Tests: Active Orders 24 hr Category Date Time Status UA W/RFX UR CULTURE Stat Lab 04/26/21 19:22 Ordered Medication Summary Generic Name Dose Route Start Last Admin Trade Name Freq PRN Reason Stop Dose Admin Lorazepam 0.5 mg 04/26/21 19:22 Ativan 2 Mg/1 Ml Vial IM 04/26/21 19:23 STAT ONE Discontinued Medications Generic Name Dose Route Start Last Admin Trade Name Freq PRN Reason Stop Dose Admin Lorazepam Confirm 04/26/21 19:20 Ativan 2 Mg/1 Ml Vial Administered 04/26/21 19:21 Dose 2 mg .ROUTE .[facility]-MED ONE - Progress Progress: improved Counseled pt/family regarding: lab results, diagnosis, need for follow-up - Departure Departure Disposition: Home Clinical Impression: Anxiety, Encounter for medical screening examination Condition: Stable Critical Care Time: No Referrals: GARY LOMBARDI MD [Primary Care Provider] -
[2021-04-26 20:10] VITALS: BP 136/85; PULSE 115; O2SAT 96
== END 2021-04-26 21:06 | disposition home or self-care (01) ==
LOC: ED 19:04
DX: F41.9 Anxiety disorder, unspecified (principal); Z00.00 Encounter for general adult medical examination without abnormal findings
CPT/HCPCS: 96372; 99284; J2060

== ENCOUNTER 2021-05-06 14:31 | Observation (INO) | payer MEDICAID, OTHER ==
[2021-05-06] MEDS ORDERED: Sodium Chloride 0.9% 1000 ML 1,000 ML IV STA (15:14)
[2021-05-06] MEDS ORDERED: Sodium Chloride 0.9% 1000 ML 1,000 ML ONE (15:18)
[2021-05-06 15:28] LABS: Hematocrit 37.8 % (42-50); Hemoglobin 12.1 gm/dl (12.5-18.0); Mean Cell Volume 81.8 fl (78-100); Mean Corpuscular Hemoglobin 26.2 pg (26-32); Mean Platelet Volume 9.4 fl (7.5-11.0); Platelet Count 371 K/mm3 (150-450); Red Blood Count 4.62 M/mm3 (4.1-5.6); Red Cell Distribution Width 15.9 % (11.5-14.0); White Blood Count 18.9 K/mm3 (4.0-10.5)
--- NOTE | 2021-05-06 15:32 | XRAY ---
Indication: pneumonia. Comparison: April 26, 2021. Portable chest again demonstrates normal heart and lungs with incidental pulmonary/mediastinal calcified nodes. No new/acute findings.
[2021-05-06 15:40] LABS: ALBUMIN 4.3 g/dL (3.5-5.0); ALKALINE PHOSPHATASE 86 U/L (38-126); ANION GAP 19.5 MEQ/L (5-15); BLOOD UREA NITROGEN 12 mg/dL (9-20); CHLORIDE 102 mmol/L (98-107); Calcium 9.1 mg/dL (8.4-10.2); Creatinine 1 0.97 mg/dL (0.66-1.25); EST GLOMERULAR FILTRATION RATE > 60.0 ML/MIN; Glucose 120 mg/dL (74-106); LIPASE 101 U/L (23-300); MAGNESIUM 2.2 mg/dL (1.6-2.3); Potassium 4.3 mmol/L (3.5-5.1); SGOT/AST 41 U/L (17-59); SGPT/ALT 31 U/L (0-50); SODIUM 133 mmol/L (137-145); Total Protein 7.1 g/dL (6.3-8.2)
[2021-05-06 15:41] LABS: Carbon Dioxide 16 mmol/L (22-30)
[2021-05-06] MEDS ORDERED: BABY ASPIRIN 81 MG CHEW PO ONE (16:05)
[2021-05-06] MEDS: Sodium Chloride 0.9% 1000 ML 1,000 ML IV SCH (16:16)
[2021-05-06] MEDS ORDERED: ROCEPHIN 2 Gm-D5w 50ML BAG** 2 G/50 ML IVPB IV STA (16:22)
[2021-05-06 16:24] LABS: ANISOCYTOSIS 1+; BAND 1 % (0.0-2.0); Eosinophil 1 % (0.00-3.0); Lymphocytes 15 % (24-44); Monocyte 3 % (0.0-12.0); Neutrophils 80 % (36.-66.); Platelet Estimate NORMAL (NORMAL); Total Cells Counted 100; Toxic Granulation 1+
[2021-05-06] MEDS ORDERED: ROCEPHIN 2 Gm-D5w 50ML BAG** 2 G/50 ML IVPB IV ONE (16:31)
[2021-05-06 16:35] LABS: Appearance CLEAR (CLEAR); Bilirubin NEGATIVE (NEGATIVE); Blood NEGATIVE Ery/ul (0-5); Glucose NEGATIVE (NEGATIVE); Ketones TRACE (NEGATIVE); Leukocyte Esterase NEGATIVE (NEGATIVE); Nitrite NEGATIVE (NEGATIVE); Protein,Urine Dip NEGATIVE (Negative); Specific Gravity 1.001 (1.005-1.025); Urobilinogen NEGATIVE mg/dL (0-1)
--- NOTE | 2021-05-06 16:53 | ERPHSYRPT ---
- History of Present Illness Time Seen by Provider: 05/06/21 14:33 Source: patient, EMS Exam Limitations: clinical condition Patient Subjective Stated Complaint: EMS states "He has deplorable living conditions. There was urine everywhere even on the pt, there were bugs ev erywhere. His family called and said they want him to live somewere else. He lives with his nephew." Triage Nursing Assessment: Pt presented alert and confused. pt covered in chewing tobacco, urine and dried feces on his legs. Pt has brusing noted to legs and groin area. PT keeps saying "I don't know" to most questions. PT denied any pain denied any shortness of breath. PT unsure of the day, unsure of when he ate last. PT was given a shower and all the dirt was scrubbed off of him. Physician History: 66 years old male with history of paranoid schizophrenia, anxiety, depression, hypertension with some element of baseline confusion is brought in the ER by EMS after family reported that it has been getting difficulty take care of patient a nd he cannot take care of himself. Patient has been lying in feces and wet with urine with bugs on him. Patient is not a good historian and keeps saying "I do not know". Moving all 4 extremities and guarded obvious distress. Denies any chest pain or shortness of breath but is tachycardic on presentation. Allergies/Adverse Reactions: No Known Drug Allergies Allergy (Verified 04/21/21 19:01) Home Medications: Clonazepam [Klonopin] 1 mg PO TID PRN 11/10/16 [History] Quetiapine Fumarate 100 mg [Seroquel 100 MG] 150 mg PO HS 11/10/16 [History] Amlodipine Besylate 10 mg [Norvasc 10 MG] 10 mg PO HS 04/17/18 [History] Budesonide/Formoterol Fumarate [Budesonide-Formoterol 160-4.5] 2 puffs IH BID 01/14/20 [History] PANTOPRAZOLE 40 mg Tablet [Protonix 40MG Tablet] 40 mg PO DAILY 04/21/20 [History] Buspirone HCl [Buspar] 10 mg PO BID 10/31/20 [History] Lisinopril/Hydrochlorothiazide [Lisinopril-Hctz 20-25 mg Tab] 1 each PO DAILY 10/31/20 [History] Metoprolol Tartrate 25 mg [Lopressor 25MG Tab] 25 mg PO BID 10/31/20 [History] Risperidone [Risperdal] 2 mg PO BID 10/31/20 [History] Hx Tetanus, Diphtheria Vaccination/Date Given: Yes Hx Influenza Vaccination/Date Given: Yes Hx Pneumococcal Vaccination/Date Given: No Immunizations Up to Date: Yes Travel Risk - International Travel Have you traveled outside of the country in past 3 weeks: No - Coronavirus Screening Are you exhibiting any of the following symptoms?: No Close contact with a COVID-19 positive Pt in past 14-21 Days: No - Vaccine Status Have you recieved a Covid-19 vaccination: No - Review of Systems All Other Systems: Unable due to condition - Past Medical History Pertinent Past Medical History: Yes Neurological History: Other ENT History: No Pertinent History Cardiac History: Hypertension Respiratory History: No Pertinent History Endocrine Medical History: No Pertinent History Musculoskeletal History: No Pertinent History GI Medical History: GERD History: No Pertinent History Psycho-Social History: Anxiety, Other Male Reproductive Disorders: No Pertinent History Other Medical History: CP, 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, paranoid schizophrenia - Past Surgical History Past Surgical History: Yes Neuro Surgical History: No Pertinent History Cardiac: No Pertinent History Respiratory: No Pertinent History Gastrointestinal: No Pertinent History Genitourinary: No Pertinent History Musculoskeletal: No Pertinent History Male Surgical History: No Pertinent History Other Surgical History: SKIN CA REMOVED FACE - Social History Smoking Status: Former smoker How long have you smoked: 35 Exposure to second hand smoke: No Alcohol Use: None Drug Use: none Patient Lives Alone: No (nephew) Significant Family History: no pertinent family hx - Nursing Vital Signs Nursing Vital Signs: Initial Vital Signs Temperature 97.6 F 05/06/21 14:48 Pulse Rate 124 H 05/06/21 14:48 Respiratory Rate 20 05/06/21 14:48 Blood Pressure 182/118 05/06/21 14:48 O2 Sat by Pulse Oximetry 100 05/06/21 14:48 Pain Scale Pain Intensity 0 - Physical Exam General Appearance: no apparent distress, alert Eye Exam: PERRL/EOMI, eyes nml inspection Ears, Nose, Throat Exam: normal ENT inspection, TMs normal, pharyngeal erythema Neck Exam: normal inspection, non-tender, supple, full range of motion Respiratory Exam: normal breath sounds, lungs clear Cardiovascular Exam: normal heart sounds, tachycardia Gastrointestinal/Abdomen Exam: soft, normal bowel sounds, No tenderness Extremity Exam: normal range of motion, other (Multiple bruising in different parts of lower extremities with no obvious bony tenderness.) 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, 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, sensation nml, No oriented x 3, No cooperative, No motor deficits Skin Exam: normal color SpO2 Interpretation: normal SpO2: 99 O2 Delivery: Room Air - Course EKG Interpreted by Me: RATE ([id number]), Sinus Tach, NORMAL AXIS, NORMAL INTERVALS, Non-specific ST Changes Ordered Tests: Active Orders 24 hr Category Date Time Status EKG-ER Only STAT Care 05/06/21 15:14 Active Vieyra [Catheter-Bethune Vieyra] STAT Care 05/06/21 16:23 Active IV Insertion STAT Care 05/06/21 15:14 Active NPO (ED) STAT Care 05/06/21 15:14 Active CHEST 1 VIEW (PORTABLE) Stat Exams 05/06/21 15:14 Completed BLOOD CULTURE Stat Lab 05/06/21 15:20 Received CBC W DIFF Stat Lab 05/06/21 15:12 Completed CK (IN-HOUSE) [CK-Creatinine Phosphokinase] Stat Lab 05/06/21 15:49 Completed CMP Stat Lab 05/06/21 15:12 Completed LIPASE Stat Lab 05/06/21 15:12 Completed Lactic Acid Stat Lab 05/06/21 15:14 Completed MAGNESIUM Stat Lab 05/06/21 15:12 Completed Manual Differential NC Stat Lab 05/06/21 15:12 Completed NT PRO BNP Stat Lab 05/06/21 16:05 Completed TROPONIN Q3H Lab 05/06/21 15:12 Completed TROPONIN Q3H Lab 05/06/21 18:15 Ordered TROPONIN Q3H Lab 05/06/21 21:15 Ordered TROPONIN Q3H Lab 05/07/21 00:15 Ordered TROPONIN Q3H Lab 05/07/21 03:15 Ordered UA W/RFX UR CULTURE Stat Lab 05/06/21 16:23 Ordered Medication Summary Generic Name Dose Route Start Last Admin Trade Name Freq PRN Reason Stop Dose Admin Sodium Chloride 1,000 mls @ 100 mls/hr 05/06/21 16:15 05/06/21 16:16 Sodium Chloride 0.9% 1000 Ml IV 06/05/21 16:14 100 mls/hr .Q10H CLOVER Administration Ceftriaxone Sodium/Dextrose 2 g in 50 mls @ 100 mls/hr 05/06/21 16:22 05/06/21 16:33 Rocephin 2 Gm-D5w 50ml Bag IV 05/06/21 16:51 100 mls/hr STAT STA 100 mls/hr Administration Discontinued Medications Generic Name Dose Route Start Last Admin Trade Name Marco A PRN Reason Stop Dose Admin Aspirin 324 mg 05/06/21 16:05 05/06/21 16:14 Baby Aspirin 81 Mg Chew PO 05/06/21 16:06 324 mg STAT ONE Administration Sodium Chloride 1,000 mls @ 999 mls/hr 05/06/21 15:14 05/06/21 16:30 Sodium Chloride 0.9% 1000 Ml IV 05/06/21 16:14 Infused .Q1H1M STA Infusion Sodium Chloride Confirm 05/06/21 15:18 Sodium Chloride 0.9% 1000 Ml Administered 05/06/21 15:19 Dose 1,000 mls @ ud .ROUTE .STK-MED ONE Ceftriaxone Sodium/Dextrose Confirm 05/06/21 16:31 Rocephin 2 Gm-D5w 50ml Bag Administered 05/06/21 16:32 Dose 2 g in 50 mls @ ud IV .STK-MED ONE Lab/Rad Data: Laboratory Result Diagrams 05/06/21 15:12 05/06/21 15:12 Laboratory Results 05/06/21 05/06/21 05/06/21 Range/Units 16:05 15:49 15:14 WBC (4.0-10.5) K/mm3 RBC (4.1-5.6) M/mm3 Hgb (12.5-18.0) gm/dl Hct (42-50) % MCV (78-100) fl MCH (26-32) pg MCHC (32-36) g/dl RDW (11.5-14.0) % Plt Count (150-450) K/mm3 MPV (7.5-11.0) fl Segmented Neutrophils (36.-66.) % Band Neutrophils (0.0-2.0) % Lymphocytes (Manual) (24-44) % Monocytes (Manual) (0.0-12.0) % Eosinophils (Manual) (0.00-3.0) % Toxic Granulation Platelet Estimate (NORMAL) RBC Morphology Anisocytosis Sodium (137-145) mmol/L Potassium (3.5-5.1) mmol/L Chloride (98-107) mmol/L Carbon Dioxide (22-30) mmol/L Anion Gap (5-15) MEQ/L BUN (9-20) mg/dL Creatinine (0.66-1.25) mg/dL Estimated GFR ML/MIN Glucose (74-106) mg/dL Lactic Acid 2.5 H (0.4-2.0) Calcium (8.4-10.2) mg/dL Magnesium (1.6-2.3) mg/dL Total Bilirubin (0.2-1.3) mg/dL AST (17-59) U/L ALT (0-50) U/L Alkaline Phosphatase (38-126) U/L Creatine Kinase 653 H (55-170) U/L Troponin I (0.000-0.034) ng/mL NT-Pro-B Natriuret Pep 197 (0-900) pg/mL Serum Total Protein (6.3-8.2) g/dL Albumin (3.5-5.0) g/dL Lipase (23-300) U/L 05/06/21 05/06/21 05/06/21 Range/Units 15:12 15:12 15:12 WBC 18.9 H (4.0-10.5) K/mm3 RBC 4.62 (4.1-5.6) M/mm3 Hgb 12.1 L (12.5-18.0) gm/dl Hct 37.8 L (42-50) % MCV 81.8 (78-100) fl MCH 26.2 (26-32) pg MCHC 32.0 (32-36) g/dl RDW 15.9 H (11.5-14.0) % Plt Count 371 (150-450) K/mm3 MPV 9.4 (7.5-11.0) fl Segmented Neutrophils 80 H (36.-66.) % Band Neutrophils 1 (0.0-2.0) % Lymphocytes (Manual) 15 L (24-44) % Monocytes (Manual) 3 (0.0-12.0) % Eosinophils (Manual) 1 (0.00-3.0) % Toxic Granulation 1+ Platelet Estimate NORMAL (NORMAL) RBC Morphology ABNORMAL Anisocytosis 1+ Sodium 133 L (137-145) mmol/L Potassium 4.3 (3.5-5.1) mmol/L Chloride 102 (98-107) mmol/L Carbon Dioxide 16 L* (22-30) mmol/L Anion Gap 19.5 H (5-15) MEQ/L BUN 12 (9-20) mg/dL Creatinine 0.97 (0.66-1.25) mg/dL Estimated GFR > 60.0 ML/MIN Glucose 120 H (74-106) mg/dL Lactic Acid (0.4-2.0) Calcium 9.1 (8.4-10.2) mg/dL Magnesium 2.2 (1.6-2.3) mg/dL Total Bilirubin 0.30 (0.2-1.3) mg/dL AST 41 (17-59) U/L ALT 31 (0-50) U/L Alkaline Phosphatase 86 (38-126) U/L Creatine Kinase (55-170) U/L Troponin I 0.055 H* (0.000-0.034) ng/mL NT-Pro-B Natriuret Pep (0-900) pg/mL Serum Total Protein 7.1 (6.3-8.2) g/dL Albumin 4.3 (3.5-5.0) g/dL Lipase 101 (23-300) U/L - Progress Progress: improved, re-examined Progress Note: 05/06/21 16:51 66 years old is evaluated the ER for inability to take care of himself. Patient has decreased oral intake. Tachycardic on presentation, alert but confused. Moving all 4 extremities. No obvious deficit. Given fluid bolus, work-up willam wed white count of 18 with a lactate of 2.5 and low bicarb and elevated gap. Chest x-ray negative for any acute cardiopulmonary findings. EKG showed sinus tach without any ST elevation but has mildly elevated troponin I 0.055, given aspirin. Denies any chest pain on repeated evaluation as well. Does have elevated CK level in 600 and will continue with gentle hydration. Urinalysis is pending, given a dose of Rocephin. His elevated white count and other chemistry abnormality could be from dehydration. Discussed with , reviewed history, work-up and agreed with admission and then patient once stable enough would be possible discharge to halfway. Discussed with : Lizandro Will see patient in: hospital (observation) Counseled pt/family regarding: lab results, diagnosis, rad results - Departure Departure Disposition: Observation Clinical Impression: NSTEMI (non-ST elevated myocardial infarction), Dehydration Rhabdomyolysis Qualifiers: Rhabdomyolysis type: non-traumatic Qualified Code(s): M62.82 - Rhabdomyolysis Condition: Stable Critical Care Time: No Referrals: GARY LOMBARDI MD [Primary Care Provider] -
[2021-05-06] MEDS ORDERED: TYLENOL 325 MG PO PRN (18:20)
[2021-05-06] MEDS ORDERED: Sodium Chloride 0.9% 1000 ML 1,000 ML IV SCH (18:20)
[2021-05-06] MEDS ORDERED: Zofran 4 MG/2 ML VIAL IV PRN (18:20)
[2021-05-07] MEDS: Sodium Chloride 0.9% 1000 ML 1,000 ML IV SCH ×3 (01:20→21:28)
[2021-05-07 05:47] LABS: Absolute Neutrophil Ct (ANC) 6.62 (1.4-6.9); BASOPHIL % 0.3 % (0.0-0.4); Basophil (Absolute #) 0.03 (0-0.4); Eosinophil % 3.5 % (0.00-5.0); Eosinophil (Absolute #) 0.34 (0-0.5); Hematocrit 34.1 % (42-50); Hemoglobin 10.4 gm/dl (12.5-18.0); Lymphocyte (Absolute #) 1.55 (1.0-4.6); Lymphocytes % 16.1 % (24.0-44.0); Mean Cell Volume 84.4 fl (78-100); Mean Corpuscular Hemoglobin 25.7 pg (26-32); Mean Corpuscular Hgb Concent. 30.5 g/dl (32-36); Mean Platelet Volume 9.5 fl (7.5-11.0); Monocyte (Absolute #) 1.07 (0.0-1.3); Monocytes % 11.1 % (0.0-12.0); Platelet Count 317 K/mm3 (150-450); Red Blood Count 4.04 M/mm3 (4.1-5.6); Red Cell Distribution Width 16.2 % (11.5-14.0); White Blood Count 9.6 K/mm3 (4.0-10.5)
[2021-05-07] MEDS ORDERED: NON-FORMULARY ITEM (Clonazepam [Klonopin] 1 MG) PO PRN (08:13)
[2021-05-07] MEDS ORDERED: clonazePAM PO PRN (08:35)
--- NOTE | 2021-05-07 08:38 | PCM.HP ---
History of Present Illness - Chief Complaint Chief Complaint: confusion. chest pain for 1 day History of Present Illness: is a 66 year old male.with history of paranoid schizophrenia, anxiety, depression, hypertension with some element of baseline confusion is brought in the ER by EMS after family reported that it has been getting difficulty take care of patient and he cannot take care of himself. Patient has been lying in feces and wet with urine with bugs on him. Patient is not a good historian and keeps saying "I do not know". Moving all 4 extremities and guarded obvious distress. Denies any chest pain or shortness of breath but is tachycardic on presentation. - Review of Systems Constitutional: Lethargy, Weakness, No Fever, No Chills Eyes: No Symptoms Ears, Nose, & Throat: No Symptoms Respiratory: No Cough, No Short Of Breath Cardiac: Chest Pain, No Edema, No Syncope Abdominal/Gastrointestinal: No Abdominal Pain, No Nausea, No Vomiting, No Diarrhea Genitourinary Symptoms: No Dysuria Musculoskeletal: No Back Pain, No Neck Pain Skin: No Rash Neurological: No Dizziness, No Focal Weakness, No Sensory Changes Psychological: No Symptoms Endocrine: No Symptoms Hematologic/Lymphatic: No Symptoms Immunological/Allergic: No Symptoms Medications & Allergies Home Medications: Home Medication List Clonazepam [Klonopin] 1 mg PO TID PRN 11/10/16 [History Confirmed 05/07/21] Quetiapine Fumarate 100 mg [Seroquel 100 MG] 150 mg PO HS 11/10/16 [History Confirmed 05/07/21] Amlodipine Besylate 10 mg [Norvasc 10 MG] 10 mg PO HS 04/17/18 [History Confirmed 05/07/21] Budesonide/Formoterol Fumarate [Budesonide-Formoterol 160-4.5] 2 puffs IH BID 01/14/20 [History Confirmed 05/07/21] PANTOPRAZOLE 40 mg Tablet [Protonix 40MG Tablet] 40 mg PO DAILY 04/21/20 [History Confirmed 05/07/21] Buspirone HCl [Buspar] 10 mg PO BID 10/31/20 [History Confirmed 05/07/21] Lisinopril/Hydrochlorothiazide [Lisinopril-Hctz 20-25 mg Tab] 1 each PO DAILY 10/31/20 [History Confirmed 05/07/21] Metoprolol Tartrate 25 mg [Lopressor 25MG Tab] 25 mg PO BID 10/31/20 [Hi story Confirmed 05/07/21] Risperidone [Risperdal] 2 mg PO BID 10/31/20 [History Confirmed 05/07/21] Allergies/Adverse Reactions: Allergies Allergy/AdvReac Type Severity Reaction Status Date / Time No Known Drug Allergies Allergy Verified 05/06/21 19:14 - Past Medical History Past Medical History: Yes Neurological History: Other ENT History: No Pertinent History Cardiac History: Hypertension Respiratory History: No Pertinent History Endocrine Medical History: No Pertinent History Musculoskelatal History: No Pertinent History GI Medical History: GERD History: No Pertinent History Pyscho-Social History: Anxiety, Other Male Reproductive Disorders: No Pertinent History Comment: CP, 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, paranoid schizophrenia - Past Surgical History Past Surgical History: Yes Neuro Surgical History: No Pertinent History Cardiac History: No Pertinent History Respiratory Surgery: No Pertinent History GI Surgical History: No Pertinent History Genitourinary Surgical Hx: No Pertinent History Musculskeletal Surgical Hx: No Pertinent History Male Surgical History: No Pertinent History Other Surgical History: SKIN CA REMOVED FACE - Social History Smoking Status: Former smoker How long have you smoked: 35 Exposure to second hand smoke: No Alcohol: None Drug Use: none Significant Family History: no pertinent family hx - Physical Exam Vital Signs: Vital Signs - 24 hr Temp Pulse Resp BP Pulse Ox 05/07/21 07:12 79 20 98 05/07/21 04:34 98.2 F 80 20 140/80 99 05/07/21 03:56 16 05/07/21 01:57 98.6 F 85 16 147/81 100 05/07/21 00:00 20 05/06/21 23:54 98.2 F 114 H 20 144/88 99 05/06/21 21:43 85 24 98 05/06/21 20:00 24 05/06/21 19:46 98.6 F 96 H 24 163/90 99 05/06/21 18:41 98.7 F 115 H 28 H 169/90 99 05/06/21 17:20 114 H 25 H 151/93 99 05/06/21 16:53 99 05/06/21 16:10 122 H 28 H 99 05/06/21 15:55 97.6 F 131 H 20 168/98 98 05/06/21 14:48 97.6 F 124 H 20 182/118 100 General Appearance: mild distress, alert 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, oriented x 3, depressed mood/affect, No motor deficits Eye Exam: PERRL/EOMI, eyes nml inspection Ears, Nose, Throat Exam: normal ENT inspection, TMs normal, pharynx normal, moist mucous membranes Neck Exam: normal inspection, non-tender, supple, full range of motion Respiratory Exam: diminished breath sounds, No respiratory distress Cardiovascular Exam: regular rate/rhythm, normal heart sounds, normal peripheral pulses Gastrointestinal/Abdomen Exam: soft, normal bowel sounds, No tenderness, No mass Back Exam: normal inspection, normal range of motion, No CVA tenderness, No vertebral tenderness Extremity Exam: normal inspection, normal range of motion, pelvis stable Skin Exam: normal color, warm, dry, No rash Wound Assessment: Skin/Wound Assessment Wound/Incision Assessment Start: 05/06/21 18:57 Text: Status: Active Freq: Q6H Protocol: Document 05/07/21 01:50 ST (Rec: 05/07/21 01:57 ST [id number]) Wound Photo Photo Taken No Lymphatic Exam: No adenopathy Results - Labs Lab/Micro Results: Lab Results-Last 24 Hours 05/06/21 05/06/21 05/06/21 Range/Units 15:12 15:12 15:12 WBC 18.9 H (4.0-10.5) K/mm3 RBC 4.62 (4.1-5.6) M/mm3 Hgb 12.1 L (12.5-18.0) gm/dl Hct 37.8 L (42-50) % MCV 81.8 (78-100) fl MCH 26.2 (26-32) pg MCHC 32.0 (32-36) g/dl RDW 15.9 H (11.5-14.0) % Plt Count 371 (150-450) K/mm3 MPV 9.4 (7.5-11.0) fl Gran % (36.0-66.0) % Eos # (Auto) (0-0.5) Absolute Lymphs (auto) (1.0-4.6) Absolute Monos (auto) (0.0-1.3) Lymphocytes % (24.0-44.0) % Monocytes % (0.0-12.0) % Eosinophils % (0.00-5.0) % Basophils % (0.0-0.4) % Absolute Granulocytes (1.4-6.9) Segmented Neutrophils 80 H (36.-66.) % Band Neutrophils 1 (0.0-2.0) % Lymphocytes (Manual) 15 L (24-44) % Monocytes (Manual) 3 (0.0-12.0) % Eosinophils (Manual) 1 (0.00-3.0) % Basophils # (0-0.4) Toxic Granulation 1+ Platelet Estimate NORMAL (NORMAL) RBC Morphology ABNORMAL Anisocytosis 1+ Sodium 133 L (137-145) mmol/L Potassium 4.3 (3.5-5.1) mmol/L Chloride 102 (98-107) mmol/L Carbon Dioxide 16 L* (22-30) mmol/L Anion Gap 19.5 H (5-15) MEQ/L BUN 12 (9-20) mg/dL Creatinine 0.97 (0.66-1.25) mg/dL Estimated GFR > 60.0 ML/MIN Glucose 120 H (74-106) mg/dL POC Glucometer (74 to 106) mg/dL Lactic Acid (0.4-2.0) Calcium 9.1 (8.4-10.2) mg/dL Magnesium 2.2 (1.6-2.3) mg/dL Total Bilirubin 0.30 (0.2-1.3) mg/dL AST 41 (17-59) U/L ALT 31 (0-50) U/L Alkaline Phosphatase 86 (38-126) U/L Creatine Kinase (55-170) U/L Troponin I 0.055 H* (0.000-0.034) ng/mL NT-Pro-B Natriuret Pep (0-900) pg/mL Serum Total Protein 7.1 (6.3-8.2) g/dL Albumin 4.3 (3.5-5.0) g/dL Lipase 101 (23-300) U/L Urine Color (YELLOW) Urine Appearance (CLEAR) Urine pH (5-6) Ur Specific Gillett (1.005-1.025) Urine Protein (Negative) Urine Ketones (NEGATIVE) Urine Blood (0-5) Pravin/ul Urine Nitrite (NEGATIVE) Urine Bilirubin (NEGATIVE) Urine Urobilinogen (0-1) mg/dL Ur Leukocyte Esterase (NEGATIVE) Urine WBC (Auto) (0-5) /HPF Urine RBC (Auto) (0-2) /HPF U Epithel Cells (Auto) (FEW) /HPF Urine Bacteria (Auto) (NEGATIVE) /HPF Urine Culture Reflexed (NO) Urine Glucose (NEGATIVE) mg/dL SARS-CoV-2 (PCR) (NEGATIVE) 05/06/21 05/06/21 05/06/21 Range/Units 15:14 15:49 16:05 WBC (4.0-10.5) K/mm3 RBC (4.1-5.6) M/mm3 Hgb (12.5-18.0) gm/dl Hct (42-50) % MCV (78-100) fl MCH (26-32) pg MCHC (32-36) g/dl RDW (11.5-14.0) % Plt Count (150-450) K/mm3 MPV (7.5-11.0) fl Gran % (36.0-66.0) % Eos # (Auto) (0-0.5) Absolute Lymphs (auto) (1.0-4.6) Absolute Monos (auto) (0.0-1.3) Lymphocytes % (24.0-44.0) % Monocytes % (0.0-12.0) % Eosinophils % (0.00-5.0) % Basophils % (0.0-0.4) % Absolute Granulocytes (1.4-6.9) Segmented Neutrophils (36.-66.) % Band Neutrophils (0.0-2.0) % Lymphocytes (Manual) (24-44) % Monocytes (Manual) (0.0-12.0) % Eosinophils (Manual) (0.00-3.0) % Basophils # (0-0.4) Toxic Granulation Platelet Estimate (NORMAL) RBC Morphology Anisocytosis Sodium (137-145) mmol/L Potassium (3.5-5.1) mmol/L Chloride (98-107) mmol/L Carbon Dioxide (22-30) mmol/L Anion Gap (5-15) MEQ/L BUN (9-20) mg/dL Creatinine (0.66-1.25) mg/dL Estimated GFR ML/MIN Glucose (74-106) mg/dL POC Glucometer (74 to 106) mg/dL Lactic Acid 2.5 H (0.4-2.0) Calcium (8.4-10.2) mg/dL Magnesium (1.6-2.3) mg/dL Total Bilirubin (0.2-1.3) mg/dL AST (17-59) U/L ALT (0-50) U/L Alkaline Phosphatase (38-126) U/L Creatine Kinase 653 H (55-170) U/L Troponin I (0.000-0.034) ng/mL NT-Pro-B Natriuret Pep 197 (0-900) pg/mL Serum Total Protein (6.3-8.2) g/dL Albumin (3.5-5.0) g/dL Lipase (23-300) U/L Urine Color (YELLOW) Urine Appearance (CLEAR) Urine pH (5-6) Ur Specific Gillett (1.005-1.025) Urine Protein (Negative) Urine Ketones (NEGATIVE) Urine Blood (0-5) Pravin/ul Urine Nitrite (NEGATIVE) Urine Bilirubin (NEGATIVE) Urine Urobilinogen (0-1) mg/dL Ur Leukocyte Esterase (NEGATIVE) Urine WBC (Auto) (0-5) /HPF Urine RBC (Auto) (0-2) /HPF U Epithel Cells (Auto) (FEW) /HPF Urine Bacteria (Auto) (NEGATIVE) /HPF Urine Culture Reflexed (NO) Urine Glucose (NEGATIVE) mg/dL SARS-CoV-2 (PCR) (NEGATIVE) 05/06/21 05/06/21 05/06/21 Range/Units 16:23 16:51 17:23 WBC (4.0-10.5) K/mm3 RBC (4.1-5.6) M/mm3 Hgb (12.5-18.0) gm/dl Hct (42-50) % MCV (78-100) fl MCH (26-32) pg MCHC (32-36) g/dl RDW (11.5-14.0) % Plt Count (150-450) K/mm3 MPV (7.5-11.0) fl Gran % (36.0-66.0) % Eos # (Auto) (0-0.5) Absolute Lymphs (auto) (1.0-4.6) Absolute Monos (auto) (0.0-1.3) Lymphocytes % (24.0-44.0) % Monocytes % (0.0-12.0) % Eosinophils % (0.00-5.0) % Basophils % (0.0-0.4) % Absolute Granulocytes (1.4-6.9) Segmented Neutrophils (36.-66.) % Band Neutrophils (0.0-2.0) % Lymphocytes (Manual) (24-44) % Monocytes (Manual) (0.0-12.0) % Eosinophils (Manual) (0.00-3.0) % Basophils # (0-0.4) Toxic Granulation Platelet Estimate (NORMAL) RBC Morphology Anisocytosis Sodium (137-145) mmol/L Potassium (3.5-5.1) mmol/L Chloride (98-107) mmol/L Carbon Dioxide (22-30) mmol/L Anion Gap (5-15) MEQ/L BUN (9-20) mg/dL Creatinine (0.66-1.25) mg/dL Estimated GFR ML/MIN Glucose (74-106) mg/dL POC Glucometer (74 to 106) mg/dL Lactic Acid 1.1 (0.4-2.0) Calcium (8.4-10.2) mg/dL Magnesium (1.6-2.3) mg/dL Total Bilirubin (0.2-1.3) mg/dL AST (17-59) U/L ALT (0-50) U/L Alkaline Phosphatase (38-126) U/L Creatine Kinase (55-170) U/L Troponin I (0.000-0.034) ng/mL NT-Pro-B Natriuret Pep (0-900) pg/mL Serum Total Protein (6.3-8.2) g/dL Albumin (3.5-5.0) g/dL Lipase (23-300) U/L Urine Color COLORLESS (YELLOW) Urine Appearance CLEAR (CLEAR) Urine pH 7.0 (5-6) Ur Specific Gillett 1.001 (1.005-1.025) Urine Protein NEGATIVE (Negative) Urine Ketones TRACE (NEGATIVE) Urine Blood NEGATIVE (0-5) Pravin/ul Urine Nitrite NEGATIVE (NEGATIVE) Urine Bilirubin NEGATIVE (NEGATIVE) Urine Urobilinogen NEGATIVE (0-1) mg/dL Ur Leukocyte Esterase NEGATIVE (NEGATIVE) Urine WBC (Auto) NONE (0-5) /HPF Urine RBC (Auto) NONE (0-2) /HPF U Epithel Cells (Auto) NONE (FEW) /HPF Urine Bacteria (Auto) NONE (NEGATIVE) /HPF Urine Culture Reflexed NO (NO) Urine Glucose NEGATIVE (NEGATIVE) mg/dL SARS-CoV-2 (PCR) NEGATIVE (NEGATIVE) 05/06/21 05/06/21 05/07/21 Range/Units 18:22 22:05 00:35 WBC (4.0-10.5) K/mm3 RBC (4.1-5.6) M/mm3 Hgb (12.5-18.0) gm/dl Hct (42-50) % MCV (78-100) fl MCH (26-32) pg MCHC (32-36) g/dl RDW (11.5-14.0) % Plt Count (150-450) K/mm3 MPV (7.5-11.0) fl Gran % (36.0-66.0) % Eos # (Auto) (0-0.5) Absolute Lymphs (auto) (1.0-4.6) Absolute Monos (auto) (0.0-1.3) Lymphocytes % (24.0-44.0) % Monocytes % (0.0-12.0) % Eosinophils % (0.00-5.0) % Basophils % (0.0-0.4) % Absolute Granulocytes (1.4-6.9) Segmented Neutrophils (36.-66.) % Band Neutrophils (0.0-2.0) % Lymphocytes (Manual) (24-44) % Monocytes (Manual) (0.0-12.0) % Eosinophils (Manual) (0.00-3.0) % Basophils # (0-0.4) Toxic Granulation Platelet Estimate (NORMAL) RBC Morphology Anisocytosis Sodium (137-145) mmol/L Potassium (3.5-5.1) mmol/L Chloride (98-107) mmol/L Carbon Dioxide (22-30) mmol/L Anion Gap (5-15) MEQ/L BUN (9-20) mg/dL Creatinine (0.66-1.25) mg/dL Estimated GFR ML/MIN Glucose (74-106) mg/dL POC Glucometer (74 to 106) mg/dL Lactic Acid (0.4-2.0) Calcium (8.4-10.2) mg/dL Magnesium (1.6-2.3) mg/dL Total Bilirubin (0.2-1.3) mg/dL AST (17-59) U/L ALT (0-50) U/L Alkaline Phosphatase (38-126) U/L Creatine Kinase (55-170) U/L Troponin I 0.073 H* 0.058 H* 0.041 H* (0.000-0.034) ng/mL NT-Pro-B Natriuret Pep (0-900) pg/mL Serum Total Protein (6.3-8.2) g/dL Albumin (3.5-5.0) g/dL Lipase (23-300) U/L Urine Color (YELLOW) Urine Appearance (CLEAR) Urine pH (5-6) Ur Specific Gillett (1.005-1.025) Urine Protein (Negative) Urine Ketones (NEGATIVE) Urine Blood (0-5) Pravin/ul Urine Nitrite (NEGATIVE) Urine Bilirubin (NEGATIVE) Urine Urobilinogen (0-1) mg/dL Ur Leukocyte Esterase (NEGATIVE) Urine WBC (Auto) (0-5) /HPF Urine RBC (Auto) (0-2) /HPF U Epithel Cells (Auto) (FEW) /HPF Urine Bacteria (Auto) (NEGATIVE) /HPF Urine Culture Reflexed (NO) Urine Glucose (NEGATIVE) mg/dL SARS-CoV-2 (PCR) (NEGATIVE) 05/07/21 05/07/21 05/07/21 Range/Units 04:40 04:40 07:03 WBC 9.6 (4.0-10.5) K/mm3 RBC 4.04 L (4.1-5.6) M/mm3 Hgb 10.4 L (12.5-18.0) gm/dl Hct 34.1 L (42-50) % MCV 84.4 (78-100) fl MCH 25.7 L (26-32) pg MCHC 30.5 L (32-36) g/dl RDW 16.2 H (11.5-14.0) % Plt Count 317 (150-450) K/mm3 MPV 9.5 (7.5-11.0) fl Gran % 69.0 H (36.0-66.0) % Eos # (Auto) 0.34 (0-0.5) Absolute Lymphs (auto) 1.55 (1.0-4.6) Absolute Monos (auto) 1.07 (0.0-1.3) Lymphocytes % 16.1 L (24.0-44.0) % Monocytes % 11.1 (0.0-12.0) % Eosinophils % 3.5 (0.00-5.0) % Basophils % 0.3 (0.0-0.4) % Absolute Granulocytes 6.62 (1.4-6.9) Segmented Neutrophils (36.-66.) % Band Neutrophils (0.0-2.0) % Lymphocytes (Manual) (24-44) % Monocytes (Manual) (0.0-12.0) % Eosinophils (Manual) (0.00-3.0) % Basophils # 0.03 (0-0.4) Toxic Granulation Platelet Estimate (NORMAL) RBC Morphology Anisocytosis Sodium (137-145) mmol/L Potassium (3.5-5.1) mmol/L Chloride (98-107) mmol/L Carbon Dioxide (22-30) mmol/L Anion Gap (5-15) MEQ/L BUN (9-20) mg/dL Creatinine (0.66-1.25) mg/dL Estimated GFR ML/MIN Glucose (74-106) mg/dL POC Glucometer 90 (74 to 106) mg/dL Lactic Acid (0.4-2.0) Calcium (8.4-10.2) mg/dL Magnesium (1.6-2.3) mg/dL Total Bilirubin (0.2-1.3) mg/dL AST (17-59) U/L ALT (0-50) U/L Alkaline Phosphatase (38-126) U/L Creatine Kinase (55-170) U/L Troponin I 0.033 (0.000-0.034) ng/mL NT-Pro-B Natriuret Pep (0-900) pg/mL Serum Total Protein (6.3-8.2) g/dL Albumin (3.5-5.0) g/dL Lipase (23-300) U/L Urine Color (YELLOW) Urine Appearance (CLEAR) Urine pH (5-6) Ur Specific Gillett (1.005-1.025) Urine Protein (Negative) Urine Ketones (NEGATIVE) Urine Blood (0-5) Pravin/ul Urine Nitrite (NEGATIVE) Urine Bilirubin (NEGATIVE) Urine Urobilinogen (0-1) mg/dL Ur Leukocyte Esterase (NEGATIVE) Urine WBC (Auto) (0-5) /HPF Urine RBC (Auto) (0-2) /HPF U Epithel Cells (Auto) (FEW) /HPF Urine Bacteria (Auto) (NEGATIVE) /HPF Urine Culture Reflexed (NO) Urine Glucose (NEGATIVE) mg/dL SARS-CoV-2 (PCR) (NEGATIVE) - Radiology Impressions Radiology Exams & Impressions: Radiology Procedures Category Date Time Status CHEST 1 VIEW (PORTABLE) Stat Exams 05/06/21 15:14 Completed - Other Procedures and Tests Respiratory Therapy 05/06/21 18:20 Oxygen Nasal Cannula 2 lpm 05/06/21 21:34 Respiratory Therapy Assessment DAILY Assessment/Plan (1) Dehydration Current Visit: Yes Status: Acute Code(s): E86.0 - DEHYDRATION (2) NSTEMI (non-ST elevated myocardial infarction) Current Visit: Yes Status: Acute Code(s): I21.4 - NON-ST ELEVATION (NSTEMI) MYOCARDIAL INFARCTION (3) Rhabdomyolysis Current Visit: Yes Status: Acute Qualifiers: Rhabdomyolysis type: non-traumatic Qualified Code(s): M62.82 - Rhabdomyolysis Code(s): M62.82 - RHABDOMYOLYSIS (4) Altered mental status Current Visit: No Status: Acute Code(s): R41.82 - ALTERED MENTAL STATUS, UNSPECIFIED
[2021-05-07 08:51] LABS: ALBUMIN 3.3 g/dL (3.5-5.0); ALKALINE PHOSPHATASE 60 U/L (38-126); ANION GAP 11.1 MEQ/L (5-15); BLOOD UREA NITROGEN 9 mg/dL (9-20); CHLORIDE 110 mmol/L (98-107); Calcium 8.4 mg/dL (8.4-10.2); Carbon Dioxide 21 mmol/L (22-30); Creatinine 1 1.09 mg/dL (0.66-1.25); EST GLOMERULAR FILTRATION RATE > 60.0 ML/MIN; Glucose 87 mg/dL (74-106); Potassium 4.7 mmol/L (3.5-5.1); SGOT/AST 28 U/L (17-59); SGPT/ALT 24 U/L (0-50); SODIUM 138 mmol/L (137-145); Total Protein 5.8 g/dL (6.3-8.2)
[2021-05-07] MEDS: Protonix 40MG Tablet PO SCH (08:54)
[2021-05-07] MEDS: Lopressor 25MG Tab PO SCH ×2 (08:54→21:29)
[2021-05-07] MEDS: Zestril 20 MG*** 20 MG, hydroDIURIL 25 MG*** 25 MG PO SCH ×2 (08:55)
[2021-05-07] MEDS: Risperdal 1 MG PO SCH ×2 (08:55→21:29)
[2021-05-07] MEDS: BUSPAR 5 MG PO SCH ×2 (08:55→21:29)
[2021-05-07] MEDS: ROCEPHIN 1 Gm-D5w 50 ml Bag** 1 G/50 ML IVPB IV SCH (08:56)
[2021-05-07] MEDS ORDERED: NON-FORMULARY ITEM (Buspirone Hcl [Buspar] 10 MG) PO SCH (10:00)
[2021-05-07] MEDS ORDERED: [UNRECOGNIZED DRUG - OTHER] IH SCH (10:00)
[2021-05-07] MEDS ORDERED: FORMOTEROL FUMARATE IH SCH (10:00)
[2021-05-07] MEDS ORDERED: BUDESONIDE IH SCH (10:00)
[2021-05-07] MEDS ORDERED: NON-FORMULARY ITEM (Lisinopril/Hydrochlorothiazide [Lisinopril-Hctz 20-25 Mg Tab] 1 EACH) PO SCH (10:00)
[2021-05-07] MEDS ORDERED: PROTONIX 40 MG IV IV SCH (10:00)
[2021-05-07] MEDS ORDERED: NON-FORMULARY ITEM (Risperidone [Risperdal] 2 MG) PO SCH (10:00)
[2021-05-07] MEDS: Advair Hfa 115/21 Common canister IH SCH ×2 (10:25→19:29)
[2021-05-07] MEDS: NORVASC 5 MG PO SCH (21:29)
[2021-05-07] MEDS: Seroquel 100 MG PO SCH (21:30)
[2021-05-07] MEDS ORDERED: NON-FORMULARY ITEM (Amlodipine Besylate 10 Mg [Norvasc 10 Mg] 10 MG) PO SCH (22:00)
[2021-05-08] MEDS: DUONEB 0.5-3 MG/3 ml Neb IH PRN ×2 (07:15→07:17)
[2021-05-08] MEDS: Advair Hfa 115/21 Common canister IH SCH ×2 (07:17→19:15)
[2021-05-08] MEDS: Sodium Chloride 0.9% 1000 ML 1,000 ML IV SCH ×2 (07:27→17:38)
[2021-05-08] MEDS: Risperdal 1 MG PO SCH ×2 (09:47→21:36)
[2021-05-08] MEDS: BUSPAR 5 MG PO SCH ×2 (09:47→21:37)
[2021-05-08] MEDS: Lopressor 25MG Tab PO SCH ×2 (09:47→21:37)
[2021-05-08] MEDS: Protonix 40MG Tablet PO SCH (09:48)
[2021-05-08] MEDS: Zestril 20 MG*** 20 MG, hydroDIURIL 25 MG*** 25 MG PO SCH ×2 (09:48)
[2021-05-08] MEDS: ROCEPHIN 1 Gm-D5w 50 ml Bag** 1 G/50 ML IVPB IV SCH (09:49)
[2021-05-08] MEDS: Seroquel 100 MG PO SCH (21:35)
[2021-05-08] MEDS: NORVASC 5 MG PO SCH (21:36)
[2021-05-09] MEDS: Sodium Chloride 0.9% 1000 ML 1,000 ML IV SCH (03:22)
[2021-05-09 04:57] LABS: Hematocrit 33.4 % (42-50); Mean Cell Volume 85.4 fl (78-100); Mean Corpuscular Hemoglobin 25.6 pg (26-32); Mean Corpuscular Hgb Concent. 29.9 g/dl (32-36); Mean Platelet Volume 9.1 fl (7.5-11.0); Platelet Count 304 K/mm3 (150-450); Red Blood Count 3.91 M/mm3 (4.1-5.6); Red Cell Distribution Width 16.2 % (11.5-14.0); White Blood Count 9.4 K/mm3 (4.0-10.5)
[2021-05-09] MEDS: Advair Hfa 115/21 Common canister IH SCH ×2 (05:04→19:15)
[2021-05-09 05:11] LABS: ANION GAP 12.2 MEQ/L (5-15); BLOOD UREA NITROGEN 11 mg/dL (9-20); CHLORIDE 107 mmol/L (98-107); CK-Creatinine Phosphokinase 567 U/L (55-170); Calcium 8.7 mg/dL (8.4-10.2); Carbon Dioxide 25 mmol/L (22-30); Creatinine 1 0.99 mg/dL (0.66-1.25); EST GLOMERULAR FILTRATION RATE > 60.0 ML/MIN; Glucose 78 mg/dL (74-106); Potassium 4.5 mmol/L (3.5-5.1); SODIUM 139 mmol/L (137-145)
[2021-05-09] MEDS: BUSPAR 5 MG PO SCH ×2 (09:10→21:25)
[2021-05-09] MEDS: Zestril 20 MG*** 20 MG, hydroDIURIL 25 MG*** 25 MG PO SCH ×2 (09:10)
[2021-05-09] MEDS: Lopressor 25MG Tab PO SCH ×2 (09:10→21:25)
[2021-05-09] MEDS: Protonix 40MG Tablet PO SCH (09:10)
[2021-05-09] MEDS: Risperdal 1 MG PO SCH ×2 (09:10→21:25)
[2021-05-09] MEDS: ROCEPHIN 1 Gm-D5w 50 ml Bag** 1 G/50 ML IVPB IV SCH (09:10)
[2021-05-09] MEDS: NORVASC 5 MG PO SCH (21:25)
[2021-05-09] MEDS: Seroquel 100 MG PO SCH (21:25)
[2021-05-10] MEDS: Advair Hfa 115/21 Common canister IH SCH ×2 (07:42→19:17)
[2021-05-10] MEDS: BUSPAR 5 MG PO SCH ×2 (09:41→21:15)
[2021-05-10] MEDS: Zestril 20 MG*** 20 MG, hydroDIURIL 25 MG*** 25 MG PO SCH ×2 (09:41)
[2021-05-10] MEDS: Protonix 40MG Tablet PO SCH (09:42)
[2021-05-10] MEDS: Lopressor 25MG Tab PO SCH ×2 (09:42→21:15)
[2021-05-10] MEDS: ROCEPHIN 1 Gm-D5w 50 ml Bag** 1 G/50 ML IVPB IV SCH (09:42)
[2021-05-10] MEDS: Risperdal 1 MG PO SCH ×2 (09:42→21:14)
[2021-05-10 10:53] LABS: ANION GAP 14.8 MEQ/L (5-15); BLOOD UREA NITROGEN 11 mg/dL (9-20); CHLORIDE 104 mmol/L (98-107); CK-Creatinine Phosphokinase 282 U/L (55-170); Carbon Dioxide 23 mmol/L (22-30); Creatinine 1 0.98 mg/dL (0.66-1.25); EST GLOMERULAR FILTRATION RATE > 60.0 ML/MIN; Glucose 124 mg/dL (74-106); Potassium 4.1 mmol/L (3.5-5.1); SODIUM 137 mmol/L (137-145)
--- NOTE | 2021-05-10 13:56 | PCM.NOTE ---
Date and Time: 05/10/21 1351 Subjective Assessment: Pt tells me he is anxious. He did not tell the nurse, so has not had his prn BZD. Denying any suicidal or homicidal ideation. Denying any pain. Nurse to try getting pt up into chair today. - Review of Systems Constitutional: No Fever Abdominal/Gastrointestinal: No Vomiting Objective Exam General Appearance: no apparent distress, alert, other (disheveled, with long hair/nguyen and dirty gown.) Neurologic Exam: cooperative, other (flat affect) Skin Exam: normal color, warm, dry, No rash Eye Exam: other (ptosis as usual) Neck Exam: normal inspection Respiratory Exam: normal breath sounds, lungs clear, No respiratory distress, No crackles/rales, No rhonchi, No wheezing Cardiovascular Exam: regular rate/rhythm, normal heart sounds, No murmur Gastrointestinal/Abdomen Exam: soft, normal bowel sounds, No tenderness, No distention, No mass, No guarding, No rebound Extremity Exam: normal inspection, other (feet with yellowed and thickened nails.), No swelling, No tenderness OBJECTIVE DATA Vital Signs: Vital Signs - 24 hr Temp Pulse Resp BP Pulse Ox 05/10/21 12:00 97.3 F 73 18 123/78 99 05/10/21 09:42 70 20 99 05/10/21 07:37 96.7 F 70 24 132/73 99 05/10/21 07:36 16 05/10/21 04:00 97.7 F 106 H 20 113/56 97 05/10/21 00:00 20 05/09/21 23:37 97.2 F 100 H 20 108/57 100 05/09/21 20:00 87 H 05/09/21 19:17 97.9 F 87 87 H 130/75 99 05/09/21 19:15 83 16 98 Pain Assessment - Last Documented Pain Intensity 0 Pain Scale Used 0-10 Pain Scale Intake and Output: Intake & Output 05/08/21 05/09/21 05/10/21 05/11/21 11:59 11:59 11:59 11:59 Intake Total 6388 3649 3700 720 Output Total 5391 2040 8500 1700 Balance -0610 554 -3530 -374 Lab Results: Lab Results-Last 24 Hours 05/10/21 Range/Units 09:23 Sodium 137 (137-145) mmol/L Potassium 4.1 (3.5-5.1) mmol/L Chloride 104 (98-107) mmol/L Carbon Dioxide 23 (22-30) mmol/L Anion Gap 14.8 (5-15) MEQ/L BUN 11 (9-20) mg/dL Creatinine 0.98 (0.66-1.25) mg/dL Estimated GFR > 60.0 ML/MIN Glucose 124 H (74-106) mg/dL Calcium 9.0 (8.4-10.2) mg/dL Creatine Kinase 282 H (55-170) U/L Multi-Disciplinary Progress Notes: Multi-Disciplinary Progress Notes 05/10/21 11:55 Case Management Note by Jodi Sullivan S/W [facility] 05/09/21@1600- MEDICAID DENIED HIS REHAB STAY AND THEY ARE UNWILLING TO TAKE HIM MEDICAID PENDING. S/W RADHA AT [facility] AFTER THAT- THEY STILL HAVE NOT HEARD BACK FROM MEDICAID. THEY WILL NEED TO HEAR BACK FROM THEM. IF MEDICAID DENIES HIM THERE- THEY WILL TALK WITH FAMILY TO SEE IF THEY COULD GET HIM SWITCHED OVER TO TRADITIONAL MEDICAID. THEY WILL LET THIS ELECT[employer] OFFICER KNOW IF THEY RECEIVE ANYTHING. THEY ARE ALSO WORKING WEDNESDAY MORNING AND WILL LET US KNOW WHEN/IF THEY WILL BE ABLE TO TAKE PATIENT SOON THEY KNOW Initialized on 05/10/21 11:55 - END OF NOTE Assessment/Plan (1) Dehydration Current Visit: Yes Status: Acute Code(s): E86.0 - DEHYDRATION (2) Muscular deconditioning Current Visit: Yes Status: Acute Assessment & Plan: Plan is to discharge to [place] or [facility]. Pt unable to care for self. Was infested with bed bugs etc. Code(s): R29.898 - OT SYMPTOMS AND SIGNS INVOLVING THE MUSCULOSKELETAL SYSTEM (3) Rhabdomyolysis Current Visit: Yes Status: Acute Qualifiers: Rhabdomyolysis type: non-traumatic Qualified Code(s): M62.82 - Rhabdomyolysis Assessment & Plan: nearly resolved - CK 282 this morning. No complaint of pain. Code(s): M62.82 - RHABDOMYOLYSIS (4) NSTEMI (non-ST elevated myocardial infarction) Current Visit: Yes Status: Acute Code(s): I21.4 - NON-ST ELEVATION (NSTEMI) MYOCARDIAL INFARCTION (5) Altered mental status Current Visit: No Status: Resolved Qualifiers: Altered mental status type: transient alteration of awareness Qualified Code(s): R40.4 - Transient alteration of awareness Assessment & Plan: I have seen this pt in the past and he seems at baseline. Code(s): R41.82 - ALTERED MENTAL STATUS, UNSPECIFIED (6) Paranoid schizophrenia Current Visit: Yes Status: Chronic Code(s): F20.0 - PARANOID SCHIZOPHRENIA
[2021-05-10] MEDS: NORVASC 5 MG PO SCH (21:14)
[2021-05-10] MEDS: Seroquel 100 MG PO SCH (21:15)
[2021-05-10] MEDS: clonazePAM PO SCH (21:16)
[2021-05-11] MEDS: clonazePAM PO SCH ×3 (06:21→21:01)
[2021-05-11] MEDS: Advair Hfa 115/21 Common canister IH SCH ×2 (07:32→21:13)
--- NOTE | 2021-05-11 10:07 | PCM.NOTE ---
Date and Time: 05/11/21 1003 Subjective Assessment: Pt thinks the anxiety med (given scheduled now) is helping. Kristel po well. up out of bed to chair with assistance. - Review of Systems Constitutional: No Fever Abdominal/Gastrointestinal: No Vomiting Objective Exam General Appearance: no apparent distress, alert Neurologic Exam: cooperative, other (blank facies as usual.) Skin Exam: normal color, warm, dry, No rash Ears, Nose, Throat Exam: other (does have scab to R of proximal nose) Respiratory Exam: normal breath sounds, lungs clear, No crackles/rales, No rhonchi, No wheezing Cardiovascular Exam: regular rate/rhythm, normal heart sounds, No murmur Gastrointestinal/Abdomen Exam: soft, normal bowel sounds, No tenderness, No distention, No mass, No guarding, No rebound Extremity Exam: normal inspection, No pedal edema, No swelling Back Exam: normal inspection, No rash OBJECTIVE DATA Vital Signs: Vital Signs - 24 hr Temp Pulse Resp BP BP Pulse Ox 05/11/21 09:23 87 18 95 05/11/21 07:50 14 05/11/21 07:43 98.0 F 88 14 109/65 95 05/11/21 04:00 97.6 F 89 20 111/62 96 05/11/21 00:02 20 05/11/21 00:00 96.9 F 94 H 20 132/68 97 05/10/21 19:52 20 05/10/21 19:31 98.5 F 87 20 109/55 97 05/10/21 19:17 77 17 97 05/10/21 16:00 18 05/10/21 15:17 97.7 F 73 18 109/55 96 05/10/21 12:00 97.3 F 73 18 123/78 99 Pain Assessment - Last Documented Pain Intensity 0 Pain Scale Used 0-10 Pain Scale Intake and Output: Intake & Output 05/08/21 05/09/21 05/10/21 05/11/21 11:59 11:59 11:59 11:59 Intake Total 4891 5513 3700 2920 Output Total 6151 5200 8500 4500 Balance -1234 326 -2101 -9103 Lab Results: Lab Results-Last 24 Hours 05/10/21 Range/Units 09:23 Sodium 137 (137-145) mmol/L Potassium 4.1 (3.5-5.1) mmol/L Chloride 104 (98-107) mmol/L Carbon Dioxide 23 (22-30) mmol/L Anion Gap 14.8 (5-15) MEQ/L BUN 11 (9-20) mg/dL Creatinine 0.98 (0.66-1.25) mg/dL Estimated GFR > 60.0 ML/MIN Glucose 124 H (74-106) mg/dL Calcium 9.0 (8.4-10.2) mg/dL Creatine Kinase 282 H (55-170) U/L Multi-Disciplinary Progress Notes: Multi-Disciplinary Progress Notes 05/10/21 11:55 Case Management Note by Jodi Sullivan S/W [facility] 05/09/21@1600- MEDICAID DENIED HIS REHAB STAY AND THEY ARE UNWILLING TO TAKE HIM MEDICAID PENDING. S/W RADHA AT [facility] AFTER THAT- THEY STILL HAVE NOT HEARD BACK FROM MEDICAID. THEY WILL NEED TO HEAR BACK FROM THEM. IF MEDICAID DENIES HIM THERE- THEY WILL TALK WITH FAMILY TO SEE IF THEY COULD GET HIM SWITCHED OVER TO TRADITIONAL MEDICAID. THEY WILL LET THIS DRIER FEEDER KNOW IF THEY RECEIVE ANYTHING. THEY ARE ALSO WORKING WEDNESDAY MORNING AND WILL LET US KNOW WHEN/IF THEY WILL BE ABLE TO TAKE PATIENT SOON THEY KNOW Initialized on 05/10/21 11:55 - END OF NOTE Assessment/Plan (1) Muscular deconditioning Current Visit: Yes Status: Acute Assessment & Plan: Will need placement after discharge here. Not moving around much - up to chair with assistance. Code(s): R29.898 - [facility] SYMPTOMS AND SIGNS INVOLVING THE MUSCULOSKELETAL SYSTEM (2) Rhabdomyolysis Current Visit: Yes Status: Resolved Qualifiers: Rhabdomyolysis type: non-traumatic Qualified Code(s): M62.82 - Rhabdomyolysis Code(s): M62.82 - RHABDOMYOLYSIS (3) Dehydration Current Visit: Yes Status: Resolved Code(s): E86.0 - DEHYDRATION (4) NSTEMI (non-ST elevated myocardial infarction) Current Visit: Yes Status: Acute Code(s): I21.4 - NON-ST ELEVATION (NSTEMI) MYOCARDIAL INFARCTION (5) Paranoid schizophrenia Current Visit: Yes Status: Chronic Code(s): F20.0 - PARANOID SCHIZOPHRENIA (6) Laceration of nose Current Visit: Yes Status: Acute Qualifiers: Encounter type: subsequent encounter Qualified Code(s): S01.21XD - Laceration without foreign body of nose, subsequent encounter Assessment & Plan: Pt doesn't know how or why his nose has a scab on it - will tx with bactroban since his hygiene is poor. Code(s): S01.21XA - LACERATION WITHOUT FOREIGN BODY OF NOSE, INITIAL ENCOUNTER
[2021-05-11] MEDS: Risperdal 1 MG PO SCH ×2 (10:11→21:01)
[2021-05-11] MEDS: Protonix 40MG Tablet PO SCH (10:11)
[2021-05-11] MEDS: Lopressor 25MG Tab PO SCH ×2 (10:11→21:01)
[2021-05-11] MEDS: BUSPAR 5 MG PO SCH ×2 (10:11→21:01)
[2021-05-11] MEDS: Zestril 20 MG*** 20 MG, hydroDIURIL 25 MG*** 25 MG PO SCH ×2 (10:12)
[2021-05-11] MEDS: ROCEPHIN 1 Gm-D5w 50 ml Bag** 1 G/50 ML IVPB IV SCH (10:12)
[2021-05-11] MEDS: Bactroban OINTMENT TP SCH ×2 (14:14→21:00)
[2021-05-11] MEDS: NORVASC 5 MG PO SCH (21:01)
[2021-05-11] MEDS: Seroquel 100 MG PO SCH (21:01)
[2021-05-12] MEDS: clonazePAM PO SCH ×3 (06:08→22:09)
--- NOTE | 2021-05-12 09:24 | PCM.NOTE ---
Date and Time: 05/12/21922 Subjective Assessment: doing ok - Review of Systems Constitutional: No Fever, No Chills Eyes: No Symptoms Ears, Nose, & Throat: No Symptoms Respiratory: No Cough, No Short Of Breath Cardiac: No Chest Pain, No Edema, No Syncope Abdominal/Gastrointestinal: No Abdominal Pain, No Nausea, No Vomiting, No Diarrhea Genitourinary Symptoms: No Dysuria Musculoskeletal: No Back Pain, No Neck Pain Skin: No Rash Neurological: No Dizziness, No Focal Weakness, No Sensory Changes Psychological: No Symptoms Endocrine: No Symptoms Hematologic/Lymphatic: No Symptoms Immunological/Allergic: No Symptoms Objective Exam General Appearance: no apparent distress, alert 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, oriented x 3, cooperative, normal mood/affect, nml cerebellar function, sensation nml, No motor deficits Skin Exam: normal color, warm, dry Eye Exam: PERRL, EOMI, eyes nml inspection Ears, Nose, Throat Exam: normal ENT inspection, pharynx normal, moist mucous membranes Neck Exam: normal inspection, non-tender, supple, full range of motion Respiratory Exam: normal breath sounds, lungs clear, No respiratory distress Cardiovascular Exam: regular rate/rhythm, normal heart sounds Gastrointestinal/Abdomen Exam: soft, No tenderness, No mass Extremity Exam: normal inspection, normal range of motion Back Exam: normal inspection, normal range of motion, No CVA tenderness, No vertebral tenderness Male Genitalia Exam: deferred Rectal Exam: deferred OBJECTIVE DATA Vital Signs: Vital Signs - 24 hr Temp Pulse Resp BP BP Pulse Ox 05/12/21 07:02 97.5 F 86 18 122/61 98 05/12/21 07:00 18 05/12/21 03:55 98.2 F 94 H 17 114/59 97 05/11/21 23:37 97.9 F 73 16 101/56 96 05/11/21 23:00 17 05/11/21 21:13 76 17 96 05/11/21 19:38 99.6 F 76 16 94/53 97 05/11/21 19:03 16 05/11/21 16:00 98.3 F 81 16 106/58 97 05/11/21 15:00 16 05/11/21 11:23 98.4 F 77 18 119/65 95 05/11/21 11:00 18 Pain Assessment - Last Documented Pain Intensity 0 Pain Scale Used 0-10 Pain Scale Intake and Output: Intake & Output 05/09/21 05/10/21 05/11/21 05/12/21 11:59 11:59 11:59 11:59 Intake Total 5513 3700 2920 1700 Output Total 5200 8500 4500 3600 Balance 288 -9550 -1580 -1800 Multi-Disciplinary Progress Notes: Multi-Disciplinary Progress Notes 05/11/21 13:07 Pharmacy Note by Christoph Cosme Wednesday is day 7 of Rocephin IV. Please review if this is still needed. Initialized on 05/11/21 13:07 - END OF NOTE Assessment/Plan (1) Dehydration Current Visit: Yes Status: Resolved Code(s): E86.0 - DEHYDRATION (2) NSTEMI (non-ST elevated myocardial infarction) Current Visit: Yes Status: Resolved Code(s): I21.4 - NON-ST ELEVATION (NSTEMI) MYOCARDIAL INFARCTION (3) Rhabdomyolysis Current Visit: Yes Status: Resolved Qualifiers: Rhabdomyolysis type: non-traumatic Qualified Code(s): M62.82 - Rhabdomyolysis Code(s): M62.82 - RHABDOMYOLYSIS (4) Altered mental status Current Visit: Yes Status: Resolved Qualifiers: Altered mental status type: transient alteration of awareness Qualified Code(s): R40.4 - Transient alteration of awareness Code(s): R41.82 - ALTERED MENTAL STATUS, UNSPECIFIED
[2021-05-12] MEDS: Bactroban OINTMENT TP SCH ×2 (09:50→22:08)
[2021-05-12] MEDS: ROCEPHIN 1 Gm-D5w 50 ml Bag** 1 G/50 ML IVPB IV SCH (09:50)
[2021-05-12] MEDS: Zestril 20 MG*** 20 MG, hydroDIURIL 25 MG*** 25 MG PO SCH ×2 (09:51)
[2021-05-12] MEDS: BUSPAR 5 MG PO SCH ×2 (09:51→22:07)
[2021-05-12] MEDS: Lopressor 25MG Tab PO SCH ×2 (09:51→22:07)
[2021-05-12] MEDS: Protonix 40MG Tablet PO SCH (09:51)
[2021-05-12] MEDS: Risperdal 1 MG PO SCH ×2 (09:51→22:07)
[2021-05-12] MEDS: Advair Hfa 115/21 Common canister IH SCH ×2 (09:57→17:51)
[2021-05-12] MEDS: NORVASC 5 MG PO SCH (22:07)
[2021-05-12] MEDS: Seroquel 100 MG PO SCH (22:07)
[2021-05-13 05:36] LABS: Hematocrit 33.8 % (42-50); Hemoglobin 10.4 gm/dl (12.5-18.0); Mean Cell Volume 83.3 fl (78-100); Mean Corpuscular Hemoglobin 25.6 pg (26-32); Mean Corpuscular Hgb Concent. 30.8 g/dl (32-36); Mean Platelet Volume 9.3 fl (7.5-11.0); Platelet Count 304 K/mm3 (150-450); Red Blood Count 4.06 M/mm3 (4.1-5.6); Red Cell Distribution Width 15.7 % (11.5-14.0); White Blood Count 9.2 K/mm3 (4.0-10.5)
[2021-05-13] MEDS: clonazePAM PO SCH ×3 (05:52→21:20)
[2021-05-13 06:02] LABS: ALBUMIN 3.5 g/dL (3.5-5.0); ALKALINE PHOSPHATASE 61 U/L (38-126); ANION GAP 14.4 MEQ/L (5-15); BLOOD UREA NITROGEN 20 mg/dL (9-20); CHLORIDE 99 mmol/L (98-107); Calcium 8.7 mg/dL (8.4-10.2); Carbon Dioxide 25 mmol/L (22-30); Creatinine 1 1.12 mg/dL (0.66-1.25); EST GLOMERULAR FILTRATION RATE > 60.0 ML/MIN; Glucose 97 mg/dL (74-106); Potassium 4.6 mmol/L (3.5-5.1); SGOT/AST 20 U/L (17-59); SGPT/ALT 20 U/L (0-50); SODIUM 134 mmol/L (137-145); Total Protein 6.3 g/dL (6.3-8.2)
[2021-05-13] MEDS: Advair Hfa 115/21 Common canister IH SCH ×2 (07:05→19:14)
[2021-05-13] MEDS: BUSPAR 5 MG PO SCH ×2 (09:52→21:18)
[2021-05-13] MEDS: Lopressor 25MG Tab PO SCH ×2 (09:52→21:19)
[2021-05-13] MEDS: Zestril 20 MG*** 20 MG, hydroDIURIL 25 MG*** 25 MG PO SCH ×2 (09:52)
[2021-05-13] MEDS: Protonix 40MG Tablet PO SCH (09:52)
[2021-05-13] MEDS: Risperdal 1 MG PO SCH ×2 (09:52→21:18)
[2021-05-13] MEDS: Bactroban OINTMENT TP SCH ×2 (09:55→21:18)
--- NOTE | 2021-05-13 20:44 | PCM.NOTE ---
Date and Time: 05/13/212042 Subjective Assessment: doing ok - Review of Systems Constitutional: No Fever, No Chills Eyes: No Symptoms Ears, Nose, & Throat: No Symptoms Respiratory: No Cough Cardiac: No Chest Pain, No Edema, No Syncope Abdominal/Gastrointestinal: No Abdominal Pain, No Nausea, No Vomiting, No Diarrhea Genitourinary Symptoms: No Dysuria Musculoskeletal: No Back Pain, No Neck Pain Skin: No Rash Neurological: No Dizziness, No Focal Weakness, No Sensory Changes Psychological: No Symptoms Endocrine: No Symptoms Hematologic/Lymphatic: No Symptoms Immunological/Allergic: No Symptoms Objective Exam General Appearance: no apparent distress, alert 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, oriented x 3, cooperative, normal mood/affect, nml cerebellar function, sensation nml, No motor deficits Skin Exam: normal color, warm, dry Eye Exam: PERRL, EOMI, eyes nml inspection Ears, Nose, Throat Exam: normal ENT inspection, pharynx normal, moist mucous membranes Neck Exam: normal inspection, non-tender, supple, full range of motion Respiratory Exam: normal breath sounds, lungs clear, No respiratory distress Cardiovascular Exam: regular rate/rhythm, normal heart sounds Gastrointestinal/Abdomen Exam: soft, No tenderness, No mass Extremity Exam: normal inspection, normal range of motion Back Exam: normal inspection, normal range of motion, No CVA tenderness, No vertebral tenderness Male Genitalia Exam: deferred Rectal Exam: deferred OBJECTIVE DATA Vital Signs: Vital Signs - 24 hr Temp Pulse Resp BP Pulse Ox 05/13/21 19:19 85 18 96 05/13/21 15:58 98.2 F 76 18 118/61 97 05/13/21 15:57 18 05/13/21 12:00 98.0 F 78 18 115/72 98 05/13/21 08:00 18 05/13/21 07:55 98.0 F 66 18 103/61 98 05/13/21 07:05 85 16 95 05/13/21 04:00 98.4 F 69 16 97/55 98 05/12/21 23:35 98.1 F 85 17 110/60 96 Pain Assessment - Last Documented Pain Intensity 0 Pain Scale Used 0-10 Pain Scale Intake and Output: Intake & Output 05/11/21 05/12/21 05/13/21 05/14/21 11:59 11:59 11:59 11:59 Intake Total 2920 1700 2240 360 Output Total 4500 5400 2400 600 Balance -1580 -3700 -160 -240 Lab Results: Lab Results-Last 24 Hours 05/13/21 05/13/21 Range/Units 05:00 05:00 WBC 9.2 (4.0-10.5) K/mm3 RBC 4.06 L (4.1-5.6) M/mm3 Hgb 10.4 L (12.5-18.0) gm/dl Hct 33.8 L (42-50) % MCV 83.3 (78-100) fl MCH 25.6 L (26-32) pg MCHC 30.8 L (32-36) g/dl RDW 15.7 H (11.5-14.0) % Plt Count 304 (150-450) K/mm3 MPV 9.3 (7.5-11.0) fl Sodium 134 L (137-145) mmol/L Potassium 4.6 (3.5-5.1) mmol/L Chloride 99 (98-107) mmol/L Carbon Dioxide 25 (22-30) mmol/L Anion Gap 14.4 (5-15) MEQ/L BUN 20 (9-20) mg/dL Creatinine 1.12 (0.66-1.25) mg/dL Estimated GFR > 60.0 ML/MIN Glucose 97 (74-106) mg/dL Calcium 8.7 (8.4-10.2) mg/dL Total Bilirubin 0.20 (0.2-1.3) mg/dL AST 20 (17-59) U/L ALT 20 (0-50) U/L Alkaline Phosphatase 61 (38-126) U/L Serum Total Protein 6.3 (6.3-8.2) g/dL Albumin 3.5 (3.5-5.0) g/dL Multi-Disciplinary Progress Notes: Multi-Disciplinary Progress Notes 05/13/21 12:53 Case Management Note by Jodi Sullivan PEER TO PEER REQUEST SUBMITTED VIA EMAIL AT THIS TIME Initialized on 05/13/21 12:53 - END OF NOTE 05/13/21 11:29 Case Management Note by Jodi Sullivan PER [facility]- PEER TO PEER REQUIRED HOWEVER WE HAVE NOT RECEIVED NOTIFICATION OF THAT FROM INSURANCE. Jaqui AGUILAR IN CLOSE CONTACT WITH ADMISSIONS AT [facility]- HOPEFUL FOR TRANSFER TODAY Initialized on 05/13/21 11:29 - END OF NOTE Assessment/Plan (1) Dehydration Current Visit: Yes Status: Resolved Code(s): E86.0 - DEHYDRATION (2) NSTEMI (non-ST elevated myocardial infarction) Current Visit: Yes Status: Resolved Code(s): I21.4 - NON-ST ELEVATION (NSTEMI) MYOCARDIAL INFARCTION (3) Rhabdomyolysis Current Visit: Yes Status: Resolved Qualifiers: Rhabdomyolysis type: non-traumatic Qualified Code(s): M62.82 - Rhabdomyolysis Code(s): M62.82 - RHABDOMYOLYSIS (4) Altered mental status Current Visit: Yes Status: Resolved Qualifiers: Altered mental status type: transient alteration of awareness Qualified Code(s): R40.4 - Transient alteration of awareness Code(s): R41.82 - ALTERED MENTAL STATUS, UNSPECIFIED
[2021-05-13] MEDS: NORVASC 5 MG PO SCH (21:19)
[2021-05-13] MEDS: Seroquel 100 MG PO SCH (21:19)
[2021-05-14] MEDS: clonazePAM PO SCH (05:23)
[2021-05-14] MEDS: Advair Hfa 115/21 Common canister IH SCH (07:26)
[2021-05-14] MEDS: BUSPAR 5 MG PO SCH (08:58)
[2021-05-14] MEDS: Protonix 40MG Tablet PO SCH (08:59)
[2021-05-14] MEDS: Lopressor 25MG Tab PO SCH (08:59)
[2021-05-14] MEDS: Risperdal 1 MG PO SCH (08:59)
[2021-05-14] MEDS: Bactroban OINTMENT TP SCH (08:59)
[2021-05-14] MEDS: Zestril 20 MG*** 20 MG, hydroDIURIL 25 MG*** 25 MG PO SCH ×2 (09:29)
--- NOTE | 2021-05-14 12:58 | PCM.DS ---
Discharge Summary Date of Admission: 05/06/21 18:10 Admitting Physician: GARY LOMBARDI Primary Care Provider: GARY LOMBARDI Allergies Allergies No Known Drug Allergies Allergy (Verified 05/06/21 19:14) Hospital Summary - Hospital Course Hospital Course: Chief Complaint Diagnosis confusion. chest pain for 1 day Allergies Allergy/AdvReac Type Severity Reaction Status Date / Time No Known Drug Allergies Allergy Verified 05/06/21 19:14 Vital Signs (Last 24 hours) Temp Pulse Resp BP Pulse Ox 05/14/21 08:00 97.0 F 72 16 135/73 98 05/14/21 07:58 16 05/14/21 07:30 72 16 97 05/14/21 04:00 97.6 F 66 20 105/64 98 05/14/21 00:00 98.2 F 85 20 102/60 95 05/13/21 20:00 98.5 F 85 22 100/56 96 05/13/21 19:19 85 18 96 05/13/21 15:58 98.2 F 76 18 118/61 97 05/13/21 15:57 18 Home Medications Medication Instructions Recorded Confirmed Last Taken Type Acetaminophen 325 mg [Tylenol 650 mg PO Q4H PRN PRN tablet 05/14/21 Unknown Rx 325 mg] Albuterol/Ipratropium 3ml Neb* 3 ml IH Q4HPRN PRN 05/14/21 Unknown Rx [DUONEB 0.5-3 MG/3 ml Neb] Mupirocin [Bactroban 0 gm TP BID 05/14/21 Unknown Rx OINTMENT] Current Medications Generic Name Dose Route Start Last Admin Trade Name Freq PRN Reason Stop Dose Admin Acetaminophen 650 mg 05/06/21 18:20 05/06/21 19:26 Tylenol 325 Mg PO 06/05/21 18:19 650 mg Q4H PRN PRN Administration PAIN AND/OR FEVER Albuterol/Ipratropium 3 ml 05/06/21 18:20 05/08/21 07:15 Duoneb 0.5-3 Mg/3 Ml Neb IH 06/05/21 18:19 3 ml Q4HPRN PRN Administration SHORTNESS OF BREATH/WHEEZING Amlodipine Besylate 10 mg 05/07/21 22:00 09/07/21 21:19 Norvasc 5 Mg PO 06/06/21 21:59 10 mg HS CL[place] Administration Buspirone HCl 10 mg 05/07/21 10:00 05/14/21 08:58 Buspar 5 Mg PO 06/06/21 09:59 10 mg BID CL[place] Administration Clonazepam 1 mg 05/10/21 22:00 05/14/21 05:23 Clonazepam PO 06/09/21 21:59 1 mg Q8H [place] Administration Lisinopril 20 mg/ 0 mg 05/07/21 10:00 05/14/21 09:29 Hydrochlorothiazide 25 mg PO 06/06/21 09:59 20 mg DAILY CL[place] Administration Metoprolol Tartrate 25 mg 05/07/21 10:00 05/14/21 08:59 Lopressor 25mg Tab PO 06/06/21 09:59 25 mg BID CL[place] Administration Mupirocin 0 gm 05/11/21 11:00 05/14/21 08:59 Bactroban Ointment TP 05/17/21 22:01 22 gm BID CL[place] Administration Ondansetron HCl 4 mg 05/06/21 18:20 Zofran 4 Mg/2 Ml Vial IV 06/05/21 18:19 Q6H PRN PRN NAUSEA/VOMITING Pantoprazole Sodium 40 mg 05/07/21 10:00 05/14/21 08:59 Protonix 40mg Tablet PO 06/06/21 09:59 40 mg DAILY [place] Administration Quetiapine Fumarate 150 mg 05/07/21 22:00 05/13/21 21:19 Seroquel 100 Mg PO 06/06/21 21:59 150 mg HS CL[place] Administration Risperidone 2 mg 05/07/21 10:00 05/14/21 08:59 Risperdal 1 Mg PO 06/06/21 09:59 2 mg BID [place] Administration Fluticasone/Salmeterol 2 puff 05/07/21 09:00 05/14/21 07:26 Advair Hfa 115/21 Common Canister* IH 06/06/21 08:59 2 puff BIDRT [place] Administration Discontinued Medications Generic Name Dose Route Start Last Admin Trade Name Freq PRN Reason Stop Dose Admin Aspirin 324 mg 05/06/21 16:05 05/06/21 16:14 Baby Aspirin 81 Mg Chew PO 05/06/21 16:06 324 mg STAT ONE Administration Clonazepam 1 mg 05/07/21 08:35 05/10/21 12:10 Clonazepam PO 06/06/21 08:34 1 mg TID PRN PRN Administration ANXIETY Sodium Chloride 1,000 mls @ 999 mls/hr 05/06/21 15:14 05/06/21 16:30 Sodium Chloride 0.9% 1000 Ml IV 05/06/21 16:14 Infused .Q1H1M STA Infusion Sodium Chloride Confirm 05/06/21 15:18 Sodium Chloride 0.9% 1000 Ml Administered 05/06/21 15:19 Dose 1,000 mls @ ud .ROUTE .STK-MED ONE Sodium Chloride 1,000 mls @ 100 mls/hr 05/06/21 16:15 05/09/21 03:22 Sodium Chloride 0.9% 1000 Ml IV 06/05/21 16:14 100 mls/hr .Q10H [place] Administration Ceftriaxone Sodium/Dextrose 2 g in 50 mls @ 100 mls/hr 05/06/21 16:22 05/06/21 17:55 Rocephin 2 Gm-D5w 50ml Bag IV 05/06/21 16:51 Infused STAT STA Infusion Ceftriaxone Sodium/Dextrose Confirm 05/06/21 16:31 Rocephin 2 Gm-D5w 50ml Bag Administered 05/06/21 16:32 Dose 2 g in 50 mls @ ud IV .STK-MED ONE Sodium Chloride 1,000 mls @ 125 mls/hr 05/06/21 18:20 05/06/21 22:09 Sodium Chloride 0.9% 1000 Ml IV 06/05/21 18:19 Not Given .Q8H [place] Ceftriaxone Sodium/Dextrose 1 g in 50 mls @ 100 mls/hr 05/07/21 10:00 05/12/21 09:50 Rocephin 1 Gm-D5w 50 Ml Bag IV 05/13/21 09:59 100 mls/hr Q24H10 [place] Administration Pantoprazole Sodium 40 mg 05/07/21 10:00 Protonix 40 Mg Iv IV 06/06/21 09:59 Q24H10 [place] Intake & Output (Last 24 hours) 05/12/21 05/13/21 05/14/21 05/15/21 11:59 11:59 11:59 11:59 Intake Total 1700 2240 1310 Output Total 5400 2400 3150 Balance -6979 -722 -0080 Orders (Last 24 hours) Category Date Time Status Miscellaneous Nursing Order ROUTINE Care 05/14/21 08:39 Active Discharge Routine Discharge 05/14/21 Ordered Patient Care Notes (Last 24 hours) 05/14/21 09:12 Case Management Note by Jodi Sullivan Addendum entered by Jodi Sullivan 05/14/21 09:20: RIDE ID#[id number] Original Note: PER MARIAN BRUCE HAS GOT APPROVAL. SHE HAS FAXED THEM CLINICAL UPDATE WELL. PATIENT NOTIFIED- HE VERIFIED UNDERSTANDING AND IS AGREEABLE TO GO. CHAN NOTIFIED WELL SISTER ELISHA. ELISHA DECLINED GETTING HIS PERSONNEL BELONGINGS AT TIME OF DC. SHE WISHED FOR THEM TO BE THROWN AWAY AND STATED SHE W [facility]UL[facility] MAKE SURE HE GOT NEW ITEMS IF NEEDED. S/W PATIENT ABOUT THIS- HE IS AGREEABLE. TRANSPORTATION WAS ARRANGED FOR THRU S AT [phone]. S/W [facility]. PATIENT TO BE READY AT 9:45. THEY WILL PROVIDE PATIENT ASSISTANCE IN AND OUT OF VEHICLE. Initialized on 05/14/21 09:12 - END OF NOTE - Vitals & Intake/Output Vital Signs: Vital Signs Temperature 97.0 F 05/14/21 08:00 Pulse Rate 72 05/14/21 08:00 Respiratory Rate 16 05/14/21 08:00 Blood Pressure 135/73 05/14/21 08:00 O2 Sat by Pulse Oximetry 98 05/14/21 08:00 Intake & Output: Intake & Output 05/12/21 05/13/21 05/14/21 05/15/21 11:59 11:59 11:59 11:59 Intake Total 1700 2240 1310 Output Total 5400 2400 3150 Balance -5554 -585 -7117 - Lab Result Diagrams: 05/13/21 05:00 05/13/21 05:00 Micro Results-Entire Visit: Microbiology 05/06/21 15:20 Blood Culture Gram Stain - Final Blood Not Reportable Blood Culture - Final NO GROWTH 05/06/21 15:12 Blood Culture Gram Stain - Final Blood Not Reportable Blood Culture - Final NO GROWTH - Procedures and Test Procedures and Tests throughout Hospitalization: Therapy Orders & Screens 05/06/21 18:20 Oxygen Nasal Cannula 2 lpm Comment: 05/06/21 18:57 OT Screen per Nursing Assess ONCE Comment: Protocol Order Physician Instructions: Greater than 3 points order OT Admission Screening Reason For Exam: Triggered on Admission Diagnosis: NSTEMI, ELEVATED TROPONIN, RHABDO Open Wound/Cellutlitis/Pressure Ulcers: No Acute Fx/ORIF/Change in wt bearing status: No Severe MUSCULOSKELETAL pain: No ADL Dysfunction: Yes Acute CVA w/Hemiparesis/Hemiplegia: No Decreased Functional Mobility/Strength: Yes Sprain/Strain: No Acute Post-op Mobility Dysfunction: No Total Points: 4 PT Screen per Nursing Assess ONCE Comment: Protocol Order Physician Instructions: Greater than 3 points order PT Admission Screenin Reason For Exam: Triggered on Admission Diagnosis: NSTEMI, ELEVATED TROPONIN, RHABDO Open Wound/Cellutlitis/Pressure Ulcers: No Acute Fx/ORIF/Change in wt bearing status: No Severe MUSCULOSKELETAL pain: No ADL Dysfunction: Yes Acute CVA w/Hemiparesis/Hemiplegia: No Decreased Functional Mobility/Strength: Yes Sprain/Strain: No Acute Post-op Mobility Dysfunction: No Total Points: 4 ST Screen per Nursing Assess ONCE Comment: Protocol Order Physician Instructions: Greater than [address] Admission Screening Reason For Exam: Triggered on Admission Diagnosis: NSTEMI, ELEVATED TROPONIN, RHABDO CVA/Dyshpagia/Aphasia: Yes Cognitive Deficits: Yes Dehydration/Nutrition Deficit: Yes Reflux: No Oral-Motor Difficulties: No Pneumonia: No Long Term Resident: No Total Points: 13 05/06/21 21:34 Respiratory Therapy Assessment DAILY Comment: Diagnosis: NSTEMI, ELEVATED TROPONIN, RHABDO Discharge Exam General Appearance: no apparent distress, alert 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, oriented x 3, cooperative, normal mood/affect, nml cerebellar function, sensation nml, No motor deficits Eye Exam: PERRL, EOMI, eyes nml inspection Ears, Nose, Throat Exam: normal ENT inspection, pharynx normal, moist mucous membranes Neck Exam: normal inspection, non-tender, supple, full range of motion Respiratory Exam: normal breath sounds, lungs clear, No respiratory distress Cardiovascular Exam: regular rate/rhythm, normal heart sounds Gastrointestinal/Abdomen Exam: soft, No tenderness, No mass Male Genitalia Exam: deferred Rectal Exam: deferred Back Exam: normal inspection, normal range of motion, No CVA tenderness, No vertebral tenderness Extremity Exam: normal inspection, normal range of motion Skin Exam: normal color, warm, dry Final Diagnosis/Problem List - Final Discharge Diagnosis/Problem (1) Dehydration Current Visit: Yes Status: Resolved Code(s): E86.0 - DEHYDRATION (2) NSTEMI (non-ST elevated myocardial infarction) Current Visit: Yes Status: Resolved Code(s): I21.4 - NON-ST ELEVATION (NSTEMI) MYOCARDIAL INFARCTION (3) Rhabdomyolysis Current Visit: Yes Status: Resolved Code(s): M62.82 - RHABDOMYOLYSIS (4) Altered mental status Current Visit: Yes Status: Resolved Code(s): R41.82 - ALTERED MENTAL STATUS, UNSPECIFIED - Discharge Discharge Date: 05/14/21 Disposition: Home, Self-Care Condition: Stable Prescriptions: New Albuterol/Ipratropium 3ml Neb* [DUONEB 0.5-3 MG/3 ml Neb] 3 ml IH Q4HPRN PRN PRN Reason: Shortness Of Breath/Wheezing Acetaminophen 325 mg [Tylenol 325 mg] 650 mg PO Q4H PRN PRN tablet PRN Reason: Pain And/Or Fever Mupirocin [Bactroban OINTMENT] 0 gm TP BID Continue Quetiapine Fumarate 100 mg [Seroquel 100 MG] 150 mg PO HS Clonazepam [Klonopin] 1 mg PO TID PRN PRN Reason: Anxiety Amlodipine Besylate 10 mg [Norvasc 10 MG] 10 mg PO HS Budesonide/Formoterol Fumarate [Budesonide-Formoterol 160-4.5] 2 puffs IH BID PANTOPRAZOLE 40 mg Tablet [Protonix 40MG Tablet] 40 mg PO DAILY Metoprolol Tartrate 25 mg [Lopressor 25MG Tab] 25 mg PO BID Buspirone HCl [Buspar] 10 mg PO BID Lisinopril/Hydrochlorothiazide [Lisinopril-Hctz 20-25 mg Tab] 1 each PO DAILY Risperidone [Risperdal] 2 mg PO BID Instructions: Dehydration, Adult (DC) Additional Instructions: [facility]: PT/OT EVAL AND TREAT REGULAR DIET SEE ATTACHED FOR CURRENT MEDS Follow up with: GARY LOMBARDI MD [Primary Care Provider] - Forms: Discharge Instructions, Transfer Record Inter-Agency
[2021-05-14 13:51] VITALS: BP 137/73; PULSE 74; O2SAT 97
== END 2021-05-14 13:07 ==
LOC: ED 14:31 → MED SURG 18:10
PROVIDERS: ADMIT General Practice; ATTEND General Practice
DX: E86.0 Dehydration (principal); I21.4 Non-ST elevation (NSTEMI) myocardial infarction; M62.82 Rhabdomyolysis; R41.82 Altered mental status, unspecified; Z79.899 Other long term (current) drug therapy; H54.61 Unqualified visual loss, right eye, normal vision left eye; I10 Essential (primary) hypertension; S01.21XA Laceration without foreign body of nose, initial encounter; R29.898 Other symptoms and signs involving the musculoskeletal system; F20.0 Paranoid schizophrenia; Z20.822 Contact with and (suspected) exposure to COVID-19
CPT/HCPCS: 36000; 36415; 51702; 71045; 80048; 80053; 81001; 82550; 82947; 83036; 83605; 83690; 83735; 83880; 84484; 85025; 85027; 87040; 93005; 93268; 94640; 94760; 96360; 96365; 99285; G0378; U0003; J0696; A9270-GY